=== PATIENT | female | born 1970 | race Hispanic/Latino ===

== ENCOUNTER 2019-06-29 23:38 | Emergency (ER) | payer OTHER | END 2019-06-30 00:22 | disposition home or self-care (01) | LOC: ERS 23:38 | DX: E11.65 Type 2 diabetes mellitus with hyperglycemia (principal); F41.9 Anxiety disorder, unspecified; F31.9 Bipolar disorder, unspecified; Z79.84 Long term (current) use of oral hypoglycemic drugs | CPT/HCPCS: 36416; 99284 ==

== ENCOUNTER 2023-04-15 20:58 | Inpatient (IN) | payer OTHER ==
[2023-04-15 21:53] LABS: #Basophils 0.1 thou/uL (0.0-0.2); #Monocytes 1.4 thou/uL (0.11-0.59); %Basophils 0.3 % (0.0-1.0); %Lymphocytes 3.3 % (21.0-51.0); %Monocytes 6.3 % (0.0-10.0); Hemoglobin 13.3 g/dL (12.0-16.0); Mean Corpuscular HGB CONC 34.1 g/dL (32.0-36.0); Mean Corpuscular Hemoglobin 31.2 pg (27.0-31.0); Mean Corpuscular Volume 91.5 fl (78.0-98.0); Mean Platelet Volume 12.6 fL (7.4-10.4); Platelet Count 182 10x3/uL (130-400); RBC Distribution Width 12.5 % (11.5-14.5); Red Blood Cell (RBC) Count 4.26 mill/uL (4.20-5.40); White Blood Cell (WBC) Count 22.4 10x3/uL (4.8-10.8)
[2023-04-15 22:14] LABS: Acetaminophen Less than 10 mcg/mL (10.0-30.0); Alcohol Less than 10.0 mg/dL (Less than 10); Lipase 86 U/L (8-78); Salicylate Less than 8.0 mg/dL (15.0-30.0)
[2023-04-15 22:17] LABS: Troponin I Less than 0.010 ng/mL (< 0.028)
[2023-04-15 22:19] LABS: ALT (SGPT) 10 U/L (8-55); AST (SGOT) 7 U/L (5-34); Albumin 3.2 g/dL (3.5-5.0); Alkaline Phosphatase 141 U/L (40-110); BUN (Urea Nitrogen) 62 mg/dL (9.8-20.1); Bilirubin, Total 0.5 mg/dL (0.2-1.2); CK (CPK) 28 U/L (29-168); Calc. Creatinine Clearance 0 mL/min (70-130); Calcium 8.4 mg/dL (7.8-10.44); Chloride 92 mmol/L (98-107); Estimated GFR 33; Potassium 3.5 mmol/L (3.5-5.1); Protein, Total 6.2 g/dL (6.0-8.3); Sodium 133 mmol/L (136-145)
[2023-04-15 22:25] LABS: Carbon Dioxide Less than 8 mmol/L (22-29); Critical Call Chemistry NUR.LCG @2224; Glucose 590 mg/dL (70-105)
[2023-04-15 22:33] LABS: Bilirubin Negative (Negative); Blood, Urine Trace (Negative); CAUTI Indications for Culture Pelvic or flank pain; Clarity Clear (Clear); Glucose, Urine (Dipstick) Greater than 1000 mg/dL (Negative); Ketone, Urine Greater than 150 mg/dL (Negative); Leukocyte 75 Leu/uL (Negative); Nitrite Negative (Negative); Protein, Urine (Dipstick) 20 mg/dL (Neg-Trace); RBC/HPF 0-3 HPF (0-3); Specific Gravity, Urine 1.021 (1.002-1.036); Squamous Epithelial 0-3 HPF (0-3); Urobilinogen Normal mg/dL (Less than 2); WBC/HPF 21-50 HPF (0-3); Yeast-Budding Rare HPF (None Seen)
[2023-04-15 22:35] LABS: Amphetamine Not Detected (NotDetected); Barbiturates Screen Not Detected (NotDetected); Benzodiazepine Screen Not Detected (NotDetected); Cocaine Metabolite Screen Not Detected (NotDetected); Methadone Not Detected (NotDetected); Methamphetamine Not Detected (NotDetected); Opiate Screen Not Detected (NotDetected); Oxycodone Screen Not Detected (NotDetected); Phencyclidine (PCP) Not Detected (NotDetected); THC/Cannabinoid Screen Not Detected (NotDetected); Tricyclic Screen Not Detected (NotDetected)
[2023-04-15 22:39] LABS: Bacteria/HPF Rare-Few HPF (None Seen)
[2023-04-15 22:40] LABS: Urine Culture Reflex Yes Yes
[2023-04-15] MEDS ORDERED: INSULIN REGULAR IN 0.9 % NACL 100 UNITS/100 ML BAG ONE (22:42)
[2023-04-15 23:05] LABS: Base Excess -22.6 mEq/L (-2.0 to +3.0); Calcium, Ionized (venous) 1.11 mmol/L (1.16-1.32); Chloride (VBG) 98 mmol/L (98-106); Hematocrit-VBG 43 % (36.0-47.0); Hemoglobin (Hb) 14.6 g/dL (11.7-16.0); Potassium (VBG) 3.56 mmol/L (3.70-5.30); Sodium 134 mmol/L (133-146)
[2023-04-15 23:08] LABS: Actual Bicarbonate (HCO3v) 5.7 mEq/L (22-28); pH (venous) 7.071 (7.32-7.43)
[2023-04-15] MEDS ORDERED: Ondansetron PF 4 MG/2 ML Vial ONE (23:10)
[2023-04-15] MEDS ORDERED: Potassium Chloride 20 MEQ TAB ONE (23:32)
[2023-04-15] MEDS ORDERED: Acetaminophen 650 MG Suppository PR PRN (23:41)
[2023-04-15] MEDS ORDERED: Ondansetron ODT 4 MG TAB PO PRN (23:41)
[2023-04-15] MEDS ORDERED: Calcium Carbonate 500 MG ChewTAB PO PRN (23:41)
[2023-04-15] MEDS ORDERED: Sodium Chloride 0.9% 1,000 ML IV PRN ×4 (23:44)
[2023-04-15] MEDS ORDERED: Electrolyte Replacement Protocol 1 EACH IVPB PRN (23:44)
[2023-04-15] MEDS ORDERED: NS 0.9% w/ 20 MEQ KCL 1,000 ML IV PRN ×2 (23:44)
[2023-04-15] MEDS ORDERED: Dextrose 5 %-0.45 % NaCl 1,000 ML IV PRN (23:44)
[2023-04-15] MEDS ORDERED: Dextrose 50% Abboject 50 ML SYRINGE SLOW IVP PRN (23:44)
[2023-04-16] MEDS ORDERED: cefTRIAXone\\ROCEPHIN 1 GM in Sodium Chloride 0.9% 100 ML IVPB SCH (01:00)
[2023-04-16 02:18] LABS: BUN (Urea Nitrogen) 52 mg/dL (9.8-20.1); Calc. Creatinine Clearance 33 mL/min (70-130); Calcium 8.1 mg/dL (7.8-10.44); Chloride 106 mmol/L (98-107); Estimated GFR 45; Glucose 344 mg/dL (70-105); Potassium 3.1 mmol/L (3.5-5.1); Sodium 138 mmol/L (136-145)
[2023-04-16 02:25] LABS: Carbon Dioxide Less than 8 mmol/L (22-29); Critical Call Chemistry NUR.CAS1@0225
[2023-04-16] MEDS: D5 1/2 NS w/20 mEq KCL 1,000 ML IV PRN ×5 (04:12→20:23)
[2023-04-16 05:47] LABS: Hematocrit 36.4 % (36.0-47.0); Hemoglobin 12.4 g/dL (12.0-16.0); Mean Corpuscular HGB CONC 34.1 g/dL (32.0-36.0); Mean Corpuscular Hemoglobin 30.5 pg (27.0-31.0); Mean Corpuscular Volume 89.4 fl (78.0-98.0); Mean Platelet Volume 11.8 fL (7.4-10.4); Platelet Count 168 10x3/uL (130-400); RBC Distribution Width 12.5 % (11.5-14.5); Red Blood Cell (RBC) Count 4.07 mill/uL (4.20-5.40); White Blood Cell (WBC) Count 15.1 10x3/uL (4.8-10.8)
[2023-04-16 05:49] LABS: Delete Auto Diff?? YES; Manual Diff?? YES
[2023-04-16 05:54] LABS: Hemoglobin A1c 11.7 % (4.0-6.0)
[2023-04-16 06:10] LABS: Anion Gap 17 mmol/L (10-20); BUN (Urea Nitrogen) 44 mg/dL (9.8-20.1); Calc. Creatinine Clearance 38 mL/min (70-130); Calcium 7.8 mg/dL (7.8-10.44); Carbon Dioxide 13 mmol/L (22-29); Chloride 112 mmol/L (98-107); Estimated GFR 52; Glucose 222 mg/dL (70-105); Magnesium 1.8 mg/dL (1.6-2.6); Potassium 3.3 mmol/L (3.5-5.1); Sodium 139 mmol/L (136-145)
[2023-04-16 06:21] LABS: Critical Call Chemistry REHAB.HL @0621; Phosphorus Less than 1.0 mg/dL (2.3-4.7)
[2023-04-16] MEDS: Potassium Chloride 20 MEQ in Premix 1 BAG IVPB SCH ×2 (06:24→08:23)
[2023-04-16] MEDS ORDERED: Magnesium 2 GM/50 ML(in water) 2 GM in Premix 1 BAG IVPB SCH (08:00)
[2023-04-16] MEDS ORDERED: Potassium Chloride 20 MEQ TAB PO SCH (08:00)
[2023-04-16 08:06] LABS: Band 32 % (5-11); Burr Cells MODERATE= 6-15 cells HPF (0-1); CellaVision Operator ID LAB.GE; Lymphocytes 4 % (21-51); Monocytes 5 % (0-10); Neutrophil 58 % (42-75); Platelet Adequacy Comment Platelets Normal; Polychromasia SLIGHT = 2-3 cells HPF (0-2); Total Cell Count 105; Vacuoles SLIGHT
[2023-04-16] MEDS: Heparin 5,000 UNITS/ML VIAL SC SCH ×2 (08:23→20:14)
[2023-04-16] MEDS: Senokot S 8.6-50 MG TAB PO SCH ×2 (08:23→20:13)
[2023-04-16] MEDS ORDERED: Famotidine/PF 20 mg/2ml Vial SLOW IVP SCH (09:00)
[2023-04-16] MEDS ORDERED: FLU VACC QS2023-24(6MOS UP)/PF 60 MCG/0.5 ML SYRINGE IM ONE (09:00)
[2023-04-16 10:20] LABS: Anion Gap 14 mmol/L (10-20); BUN (Urea Nitrogen) 37 mg/dL (9.8-20.1); Calc. Creatinine Clearance 42 mL/min (70-130); Calcium 7.9 mg/dL (7.8-10.44); Carbon Dioxide 14 mmol/L (22-29); Chloride 114 mmol/L (98-107); Estimated GFR 57; Glucose 251 mg/dL (70-105); Potassium 3.9 mmol/L (3.5-5.1); Sodium 138 mmol/L (136-145)
[2023-04-16] MEDS ORDERED: Potassium Phosphate 30 MMOL in Sodium Chloride 0.9% 250 ML 250 ML IVPB SCH (10:45)
[2023-04-16] MEDS: HUMULIN R 100 UNITS in Sodium Chloride 0.9% 100 ML IVPB SCH ×2 (11:51→22:58)
[2023-04-16 13:20] LABS: Potassium 4.1 mmol/L (3.5-5.1)
[2023-04-16 14:00] LABS: Chloride 115 mmol/L (98-107); Potassium 4.3 mmol/L (3.5-5.1); Sodium 140 mmol/L (136-145)
[2023-04-16 14:01] LABS: Calcium 8.1 mg/dL (7.8-10.44); Glucose 269 mg/dL (70-105)
[2023-04-16 14:03] LABS: Anion Gap 12 mmol/L (10-20); Carbon Dioxide 17 mmol/L (22-29)
[2023-04-16 14:05] LABS: BUN (Urea Nitrogen) 33 mg/dL (9.8-20.1); Calc. Creatinine Clearance 46 mL/min (70-130); Estimated GFR 64
[2023-04-16] MEDS ORDERED: Meropenem 1 GM in Sodium Chloride 0.9% 100 ML IVPB SCH ×3 (15:15→23:00)
[2023-04-16] MEDS ORDERED: PHOS-NAK 1 PKT PACK PO SCH ×2 (17:30→21:00)
[2023-04-16 19:57] LABS: Critical Call Chemistry REHAB.HL @1957; Phosphorus 1.2 mg/dL (2.3-4.7)
[2023-04-16] MEDS ORDERED: Potassium Phosphate 22 MMOL in Sodium Chloride 0.9% 250 ML 250 ML IVPB SCH ×2 (22:15→23:00)
[2023-04-17] MEDS ORDERED: cefTRIAXone\\ROCEPHIN 2 GM in Sodium Chloride 0.9% 100 ML IVPB SCH (02:00)
[2023-04-17 04:54] LABS: Hematocrit 34.4 % (36.0-47.0); Hemoglobin 11.9 g/dL (12.0-16.0); Mean Corpuscular HGB CONC 34.6 g/dL (32.0-36.0); Mean Corpuscular Hemoglobin 30.8 pg (27.0-31.0); Mean Corpuscular Volume 89.1 fl (78.0-98.0); Mean Platelet Volume 11.6 fL (7.4-10.4); Platelet Count 118 10x3/uL (130-400); RBC Distribution Width 13.1 % (11.5-14.5); Red Blood Cell (RBC) Count 3.86 mill/uL (4.20-5.40); White Blood Cell (WBC) Count 13.7 10x3/uL (4.8-10.8)
[2023-04-17 05:16] LABS: Delete Auto Diff?? YES; Manual Diff?? YES
[2023-04-17 05:22] LABS: ALT (SGPT) 7 U/L (8-55); AST (SGOT) 10 U/L (5-34); Albumin 2.4 g/dL (3.5-5.0); Alkaline Phosphatase 134 U/L (40-110); Anion Gap 14 mmol/L (10-20); BUN (Urea Nitrogen) 17 mg/dL (9.8-20.1); Bilirubin, Total 0.4 mg/dL (0.2-1.2); Calc. Creatinine Clearance 61 mL/min (70-130); Calcium 7.5 mg/dL (7.8-10.44); Carbon Dioxide 14 mmol/L (22-29); Chloride 117 mmol/L (98-107); Estimated GFR 90; Globulin 3.1 g/dL (2.4-3.5); Glucose 160 mg/dL (70-105); Magnesium 1.8 mg/dL (1.6-2.6); Potassium 4.8 mmol/L (3.5-5.1); Protein, Total 5.5 g/dL (6.0-8.3); Sodium 140 mmol/L (136-145)
[2023-04-17 05:30] LABS: Phosphorus 1.4 mg/dL (2.3-4.7)
[2023-04-17] MEDS ORDERED: Potassium Phosphate 22 MMOL in Sodium Chloride 0.9% 250 ML 250 ML IVPB SCH (07:00)
[2023-04-17 07:24] LABS: Band 42 % (5-11); Burr Cells MARKED = >16 cells HPF (0-1); CellaVision Operator ID LAB.GE; Large Platelets 4.9 % (0-5); Neutrophil 58 % (42-75); Platelet Adequacy Comment Platelets Decreased; Polychromasia SLIGHT = 2-3 cells HPF (0-2); Total Cell Count 102; Toxic Granulation SLIGHT; Vacuoles SLIGHT
[2023-04-17] MEDS ORDERED: Magnesium 2 GM/50 ML(in water) 2 GM in Premix 1 BAG IVPB SCH (08:00)
[2023-04-17] MEDS: Famotidine/PF 20 mg/2ml Vial SLOW IVP SCH ×2 (08:42→20:52)
[2023-04-17] MEDS: Meropenem 1 GM in Sodium Chloride 0.9% 100 ML IVPB SCH ×3 (08:42→22:01)
[2023-04-17] MEDS: Heparin 5,000 UNITS/ML VIAL SC SCH ×2 (08:42→21:02)
[2023-04-17] MEDS: Senokot S 8.6-50 MG TAB PO SCH ×2 (08:43→20:51)
[2023-04-17] MEDS: PHOS-NAK 1 PKT PACK PO SCH ×3 (08:43→20:52)
[2023-04-17] MEDS: D5 1/2 NS w/20 mEq KCL 1,000 ML IV PRN ×3 (08:44→13:37)
[2023-04-17] MEDS ORDERED: Sodium Bicarbonate 150 MEQ in Dextrose 5% in Water 1,000 ML IV SCH (15:00)
[2023-04-17] MEDS ORDERED: Dextrose 5% in Water 1,000 ML IV PRN (15:37)
[2023-04-17] MEDS ORDERED: Glucagon 1 MG/ML KIT IM PRN (15:37)
[2023-04-17] MEDS ORDERED: Dextrose 50% Abboject 50 ML SYRINGE SLOW IVP PRN (15:37)
[2023-04-17] MEDS ORDERED: Insulin Glargine 30 UNITS/0.3 ML VIAL SC SCH (16:00)
[2023-04-17] MEDS: Sodium Chloride 0.45% 1,000 ML IV SCH (19:22)
[2023-04-17] MEDS: Acetaminophen 325 MG TAB PO PRN (20:51)
[2023-04-17] MEDS: HumaLOG 300 UNITS/3 ML VIAL SC PRN (21:00)
[2023-04-18] MEDS: Sodium Chloride 0.45% 1,000 ML IV SCH ×3 (03:26→19:14)
[2023-04-18 03:51] LABS: Hematocrit 35.3 % (36.0-47.0); Hemoglobin 12.2 g/dL (12.0-16.0); Mean Corpuscular HGB CONC 34.6 g/dL (32.0-36.0); Mean Corpuscular Hemoglobin 30.4 pg (27.0-31.0); Mean Platelet Volume 11.9 fL (7.4-10.4); Platelet Count 99 10x3/uL (130-400); RBC Distribution Width 13.3 % (11.5-14.5); Red Blood Cell (RBC) Count 4.01 mill/uL (4.20-5.40); White Blood Cell (WBC) Count 15.1 10x3/uL (4.8-10.8)
[2023-04-18 03:54] LABS: Delete Auto Diff?? YES; Manual Diff?? YES
[2023-04-18 04:22] LABS: Band 6 % (5-11); CellaVision Operator ID lab.abc; Lymphocytes 2 % (21-51); Monocytes 5 % (0-10); Myelocyte 1 % (0-0); Neutrophil 86 % (42-75); Platelet Adequacy Comment Platelets Decreased; RBC Morphology Within Normal Limits; Smudge Cells 19.8 %; Total Cell Count 101
[2023-04-18 04:24] LABS: ALT (SGPT) 7 U/L (8-55); AST (SGOT) 13 U/L (5-34); Albumin 2.2 g/dL (3.5-5.0); Alkaline Phosphatase 141 U/L (40-110); Anion Gap 12 mmol/L (10-20); BUN (Urea Nitrogen) 13 mg/dL (9.8-20.1); Bilirubin, Total 0.5 mg/dL (0.2-1.2); Calc. Creatinine Clearance 75 mL/min (70-130); Calcium 7.1 mg/dL (7.8-10.44); Carbon Dioxide 19 mmol/L (22-29); Chloride 109 mmol/L (98-107); Estimated GFR 103; Globulin 3.2 g/dL (2.4-3.5); Glucose 308 mg/dL (70-105); Magnesium 2.2 mg/dL (1.6-2.6); Phosphorus 2.2 mg/dL (2.3-4.7); Potassium 4.6 mmol/L (3.5-5.1); Protein, Total 5.4 g/dL (6.0-8.3); Sodium 135 mmol/L (136-145)
[2023-04-18] MEDS: Meropenem 1 GM in Sodium Chloride 0.9% 100 ML IVPB SCH ×3 (05:28→22:26)
[2023-04-18] MEDS: Acetaminophen 325 MG TAB PO PRN ×2 (05:28→22:26)
[2023-04-18] MEDS: HumaLOG 300 UNITS/3 ML VIAL SC PRN (05:54)
[2023-04-18] MEDS: Senokot S 8.6-50 MG TAB PO SCH ×2 (08:16→22:24)
[2023-04-18] MEDS: PHOS-NAK 1 PKT PACK PO SCH ×3 (08:16→22:24)
[2023-04-18] MEDS: Heparin 5,000 UNITS/ML VIAL SC SCH (08:17)
[2023-04-18] MEDS: Famotidine/PF 20 mg/2ml Vial SLOW IVP SCH ×2 (08:17→22:38)
[2023-04-18] MEDS ORDERED: Insulin Glargine 30 UNITS/0.3 ML VIAL SC SCH ×2 (09:00→21:00)
[2023-04-18] MEDS: Insulin Glargine 30 UNITS/0.3 ML VIAL SC SCH (22:25)
[2023-04-19] MEDS: Sodium Chloride 0.45% 1,000 ML IV SCH ×2 (03:48→14:56)
[2023-04-19 04:07] LABS: #Neutrophils 13.7 thou/uL (1.40-6.50); %Basophils 0.2 % (0.0-1.0); %Eosinophils 0.2 % (0.0-10.0); %Lymphocytes 6.7 % (21.0-51.0); %Monocytes 6.4 % (0.0-10.0); %Neutrophils 85.1 % (42.0-75.0); Hematocrit 34.8 % (36.0-47.0); Hemoglobin 12.2 g/dL (12.0-16.0); Mean Corpuscular HGB CONC 35.1 g/dL (32.0-36.0); Mean Corpuscular Hemoglobin 30.9 pg (27.0-31.0); Mean Corpuscular Volume 88.1 fl (78.0-98.0); RBC Distribution Width 13.2 % (11.5-14.5); Red Blood Cell (RBC) Count 3.95 mill/uL (4.20-5.40); White Blood Cell (WBC) Count 16.1 10x3/uL (4.8-10.8)
[2023-04-19 04:19] LABS: Phosphorus 2.5 mg/dL (2.3-4.7)
[2023-04-19 04:20] LABS: Anion Gap 10 mmol/L (10-20); BUN (Urea Nitrogen) 14 mg/dL (9.8-20.1); Calc. Creatinine Clearance 79 mL/min (70-130); Calcium 7.2 mg/dL (7.8-10.44); Carbon Dioxide 20 mmol/L (22-29); Chloride 106 mmol/L (98-107); Estimated GFR 99; Glucose 171 mg/dL (70-105); Potassium 4.2 mmol/L (3.5-5.1); Sodium 132 mmol/L (136-145)
[2023-04-19 04:59] LABS: Platelet Count 107 10x3/uL (130-400)
[2023-04-19] MEDS: Meropenem 1 GM in Sodium Chloride 0.9% 100 ML IVPB SCH ×3 (05:45→23:32)
[2023-04-19] MEDS: Acetaminophen 325 MG TAB PO PRN ×2 (05:48→23:32)
[2023-04-19] MEDS: Famotidine/PF 20 mg/2ml Vial SLOW IVP SCH ×2 (08:39→20:05)
[2023-04-19] MEDS: PHOS-NAK 1 PKT PACK PO SCH ×2 (08:40→20:04)
[2023-04-19] MEDS: Senokot S 8.6-50 MG TAB PO SCH ×2 (08:40→20:05)
[2023-04-19] MEDS ORDERED: Sodium Chloride 0.45% 1,000 ML IV SCH (08:58)
[2023-04-19] MEDS ORDERED: Insulin Glargine 30 UNITS/0.3 ML VIAL SC SCH (09:00)
[2023-04-19] MEDS: Insulin Glargine 30 UNITS/0.3 ML VIAL SC SCH (20:03)
[2023-04-20] MEDS: Sodium Chloride 0.45% 1,000 ML IV SCH ×2 (04:29→17:14)
[2023-04-20] MEDS: Acetaminophen 325 MG TAB PO PRN ×3 (04:32→21:20)
[2023-04-20 06:23] LABS: #Basophils 0.1 thou/uL (0.0-0.2); #Monocytes 1.2 thou/uL (0.11-0.59); #Neutrophils 12.9 thou/uL (1.40-6.50); %Basophils 0.5 % (0.0-1.0); %Eosinophils 0.2 % (0.0-10.0); %Lymphocytes 6.7 % (21.0-51.0); %Monocytes 7.8 % (0.0-10.0); %Neutrophils 83.8 % (42.0-75.0); Hematocrit 33.7 % (36.0-47.0); Hemoglobin 11.6 g/dL (12.0-16.0); Mean Corpuscular HGB CONC 34.4 g/dL (32.0-36.0); Mean Corpuscular Hemoglobin 30.3 pg (27.0-31.0); Mean Platelet Volume 11.2 fL (7.4-10.4); RBC Distribution Width 13.2 % (11.5-14.5); Red Blood Cell (RBC) Count 3.83 mill/uL (4.20-5.40); White Blood Cell (WBC) Count 15.3 10x3/uL (4.8-10.8)
[2023-04-20 06:38] LABS: Platelet Count 98 10x3/uL (130-400)
[2023-04-20] MEDS: Meropenem 1 GM in Sodium Chloride 0.9% 100 ML IVPB SCH ×2 (07:06→18:09)
[2023-04-20 08:35] LABS: Anion Gap 12 mmol/L (10-20); BUN (Urea Nitrogen) 21 mg/dL (9.8-20.1); Calc. Creatinine Clearance 46 mL/min (70-130); Calcium 7.2 mg/dL (7.8-10.44); Carbon Dioxide 21 mmol/L (22-29); Chloride 104 mmol/L (98-107); Estimated GFR 51; Glucose 97 mg/dL (70-105); Potassium 4.6 mmol/L (3.5-5.1); Sodium 132 mmol/L (136-145)
[2023-04-20] MEDS ORDERED: Lisinopril 2.5 MG TAB PO SCH (09:00)
[2023-04-20] MEDS: Escitalopram Oxalate 10 mg Tablet PO SCH (09:47)
[2023-04-20] MEDS: Senokot S 8.6-50 MG TAB PO SCH (09:47)
[2023-04-20] MEDS: Famotidine/PF 20 mg/2ml Vial SLOW IVP SCH (09:48)
[2023-04-20] MEDS: PHOS-NAK 1 PKT PACK PO SCH ×2 (09:48→21:21)
[2023-04-20] MEDS: Albumin 25% 25 GM (100 mL) BOT IVPB SCH ×2 (17:07→23:43)
[2023-04-21] MEDS: Acetaminophen 325 MG TAB PO PRN ×3 (03:26→15:54)
[2023-04-21] MEDS: Albumin 25% 25 GM (100 mL) BOT IVPB SCH ×3 (05:06→18:49)
[2023-04-21] MEDS: Meropenem 1 GM in Sodium Chloride 0.9% 100 ML IVPB SCH ×2 (06:10→18:48)
[2023-04-21] MEDS: PHOS-NAK 1 PKT PACK PO SCH (08:16)
[2023-04-21] MEDS: Escitalopram Oxalate 10 mg Tablet PO SCH (08:16)
[2023-04-21] MEDS ORDERED: Famotidine/PF 20 mg/2ml Vial SLOW IVP SCH (09:00)
[2023-04-21] MEDS: Sodium Chloride 0.45% 1,000 ML IV SCH ×2 (09:11→20:04)
[2023-04-21 09:25] LABS: #Monocytes 0.8 thou/uL (0.11-0.59); #Neutrophils 12.5 thou/uL (1.40-6.50); %Basophils 0.2 % (0.0-1.0); %Eosinophils 0.2 % (0.0-10.0); %Lymphocytes 6.7 % (21.0-51.0); %Monocytes 5.4 % (0.0-10.0); %Neutrophils 86.3 % (42.0-75.0); Hematocrit 35.9 % (36.0-47.0); Hemoglobin 11.7 g/dL (12.0-16.0); Mean Corpuscular HGB CONC 32.6 g/dL (32.0-36.0); Mean Corpuscular Hemoglobin 30.5 pg (27.0-31.0); Mean Corpuscular Volume 93.5 fl (78.0-98.0); Mean Platelet Volume 10.9 fL (7.4-10.4); Platelet Count 126 10x3/uL (130-400); RBC Distribution Width 13.4 % (11.5-14.5); Red Blood Cell (RBC) Count 3.84 mill/uL (4.20-5.40); White Blood Cell (WBC) Count 14.5 10x3/uL (4.8-10.8)
[2023-04-21 09:46] LABS: Anion Gap 17 mmol/L (10-20); BUN (Urea Nitrogen) 27 mg/dL (9.8-20.1); Calc. Creatinine Clearance 39 mL/min (70-130); Calcium 7.5 mg/dL (7.8-10.44); Carbon Dioxide 16 mmol/L (22-29); Chloride 104 mmol/L (98-107); Estimated GFR 42; Glucose 197 mg/dL (70-105); Potassium 4.6 mmol/L (3.5-5.1); Sodium 132 mmol/L (136-145)
[2023-04-21] MEDS: Sodium Bicarbonate 150 MEQ in Dextrose 5% in Water 1,000 ML IV SCH (15:54)
[2023-04-21] MEDS: HumaLOG 300 UNITS/3 ML VIAL SC PRN (19:32)
[2023-04-21] MEDS: Insulin Glargine 30 UNITS/0.3 ML VIAL SC SCH (21:56)
[2023-04-22] MEDS: Albumin 25% 25 GM (100 mL) BOT IVPB SCH ×3 (00:08→12:22)
[2023-04-22] MEDS: Sodium Bicarbonate 150 MEQ in Dextrose 5% in Water 1,000 ML IV SCH ×2 (01:08→06:50)
[2023-04-22 05:57] LABS: #Monocytes 0.6 thou/uL (0.11-0.59); #Neutrophils 6.9 thou/uL (1.40-6.50); %Basophils 0.1 % (0.0-1.0); %Eosinophils 0.4 % (0.0-10.0); %Lymphocytes 10.8 % (21.0-51.0); %Monocytes 6.7 % (0.0-10.0); %Neutrophils 81.3 % (42.0-75.0); Hematocrit 28.1 % (36.0-47.0); Hemoglobin 9.6 g/dL (12.0-16.0); Mean Corpuscular HGB CONC 34.2 g/dL (32.0-36.0); Mean Corpuscular Hemoglobin 30.9 pg (27.0-31.0); Mean Platelet Volume 10.6 fL (7.4-10.4); Platelet Count 150 10x3/uL (130-400); RBC Distribution Width 13.2 % (11.5-14.5); Red Blood Cell (RBC) Count 3.11 mill/uL (4.20-5.40); White Blood Cell (WBC) Count 8.4 10x3/uL (4.8-10.8)
[2023-04-22 06:07] LABS: Mean Corpuscular Volume 90.4 fl (78.0-98.0)
[2023-04-22 06:26] LABS: Anion Gap 14 mmol/L (10-20); BUN (Urea Nitrogen) 17 mg/dL (9.8-20.1); Calc. Creatinine Clearance 74 mL/min (70-130); Calcium 7.6 mg/dL (7.8-10.44); Carbon Dioxide 22 mmol/L (22-29); Chloride 105 mmol/L (98-107); Estimated GFR 90; Glucose 227 mg/dL (70-105); Magnesium 2.1 mg/dL (1.6-2.6); Sodium 137 mmol/L (136-145)
[2023-04-22 06:27] LABS: Phosphorus 2.9 mg/dL (2.3-4.7)
[2023-04-22] MEDS: Meropenem 1 GM in Sodium Chloride 0.9% 100 ML IVPB SCH ×2 (06:49→17:55)
[2023-04-22] MEDS: HumaLOG 300 UNITS/3 ML VIAL SC PRN ×2 (06:55→17:03)
[2023-04-22] MEDS: Escitalopram Oxalate 10 mg Tablet PO SCH (09:05)
[2023-04-22] MEDS: Acetaminophen 325 MG TAB PO PRN ×2 (17:02→20:20)
[2023-04-22] MEDS: Insulin Glargine 30 UNITS/0.3 ML VIAL SC SCH (20:19)
[2023-04-23] MEDS: Meropenem 1 GM in Sodium Chloride 0.9% 100 ML IVPB SCH ×3 (06:36→20:53)
[2023-04-23] MEDS: Acetaminophen 325 MG TAB PO PRN (06:38)
[2023-04-23] MEDS: Escitalopram Oxalate 10 mg Tablet PO SCH (09:11)
[2023-04-23] MEDS: Insulin Glargine 30 UNITS/0.3 ML VIAL SC SCH (20:52)
[2023-04-24 05:19] LABS: #Monocytes 0.4 thou/uL (0.11-0.59); #Neutrophils 8.7 thou/uL (1.40-6.50); %Basophils 0.1 % (0.0-1.0); %Eosinophils 0.2 % (0.0-10.0); %Lymphocytes 13.9 % (21.0-51.0); %Monocytes 3.9 % (0.0-10.0); %Neutrophils 81.5 % (42.0-75.0); Hematocrit 30.1 % (36.0-47.0); Hemoglobin 9.9 g/dL (12.0-16.0); Mean Corpuscular HGB CONC 32.9 g/dL (32.0-36.0); Mean Corpuscular Hemoglobin 30.5 pg (27.0-31.0); Mean Corpuscular Volume 92.6 fl (78.0-98.0); Mean Platelet Volume 10.3 fL (7.4-10.4); Platelet Count 218 10x3/uL (130-400); RBC Distribution Width 12.9 % (11.5-14.5); Red Blood Cell (RBC) Count 3.25 mill/uL (4.20-5.40); White Blood Cell (WBC) Count 10.6 10x3/uL (4.8-10.8)
[2023-04-24 05:42] LABS: Anion Gap 10 mmol/L (10-20); BUN (Urea Nitrogen) 8 mg/dL (9.8-20.1); Calc. Creatinine Clearance 113 mL/min (70-130); Calcium 7.5 mg/dL (7.8-10.44); Carbon Dioxide 29 mmol/L (22-29); Chloride 101 mmol/L (98-107); Estimated GFR 111; Glucose 155 mg/dL (70-105); Sodium 136 mmol/L (136-145)
[2023-04-24] MEDS: Meropenem 1 GM in Sodium Chloride 0.9% 100 ML IVPB SCH ×4 (06:01→20:42)
[2023-04-24] MEDS: Lisinopril 2.5 MG TAB PO SCH (09:06)
[2023-04-24] MEDS: Escitalopram Oxalate 10 mg Tablet PO SCH (09:06)
[2023-04-24] MEDS: HumaLOG 300 UNITS/3 ML VIAL SC PRN (15:56)
[2023-04-24] MEDS ORDERED: Sodium Chloride 0.9% 1,000 ML IV SCH ×2 (16:15→18:00)
[2023-04-24] MEDS: metFORMIN 500 MG TAB PO SCH (16:52)
[2023-04-25 04:15] LABS: #Monocytes 0.3 thou/uL (0.11-0.59); #Neutrophils 6.3 thou/uL (1.40-6.50); %Basophils 0.1 % (0.0-1.0); %Lymphocytes 19.5 % (21.0-51.0); %Monocytes 3.9 % (0.0-10.0); %Neutrophils 76.1 % (42.0-75.0); Hematocrit 31.6 % (36.0-47.0); Hemoglobin 10.5 g/dL (12.0-16.0); Mean Corpuscular HGB CONC 33.2 g/dL (32.0-36.0); Mean Corpuscular Hemoglobin 30.7 pg (27.0-31.0); Mean Corpuscular Volume 92.4 fl (78.0-98.0); Mean Platelet Volume 10.3 fL (7.4-10.4); Platelet Count 218 10x3/uL (130-400); RBC Distribution Width 13.1 % (11.5-14.5); Red Blood Cell (RBC) Count 3.42 mill/uL (4.20-5.40); White Blood Cell (WBC) Count 8.3 10x3/uL (4.8-10.8)
[2023-04-25 04:32] LABS: Anion Gap 10 mmol/L (10-20); BUN (Urea Nitrogen) 13 mg/dL (9.8-20.1); Calc. Creatinine Clearance 102 mL/min (70-130); Calcium 7.4 mg/dL (7.8-10.44); Carbon Dioxide 29 mmol/L (22-29); Chloride 101 mmol/L (98-107); Estimated GFR 108; Glucose 195 mg/dL (70-105); Sodium 136 mmol/L (136-145)
[2023-04-25] MEDS: Meropenem 1 GM in Sodium Chloride 0.9% 100 ML IVPB SCH (06:55)
[2023-04-25] MEDS: Escitalopram Oxalate 10 mg Tablet PO SCH (08:36)
[2023-04-25] MEDS: Lisinopril 2.5 MG TAB PO SCH (08:37)
[2023-04-25] MEDS: metFORMIN 500 MG TAB PO SCH ×2 (08:37→16:47)
[2023-04-25] MEDS: HumaLOG 300 UNITS/3 ML VIAL SC PRN ×2 (13:13→21:02)
[2023-04-25] MEDS ORDERED: Ertapenem 1 GM in Sodium Chloride 0.9% 100 ML IVPB SCH (15:00)
[2023-04-25] MEDS ORDERED: Sodium Chloride 0.9% 1,000 ML IV SCH (19:45)
[2023-04-25 19:56] LABS: Actual Bicarbonate (HCO3a) 23.1 mEq/L (22-28); Base Excess (BEa) -1.5 mEq/L (-2.0 to +3.0); CO2 Tension 38.3 mmHg (35.0-45.0); Calcium, Ionized (arterial) 1.07 mmol/L (1.12-1.30); Carboxyhemoglobin (COHb) 0.1 gm% (0.0-3.0); Hematocrit-ABG 32 % (36.0-47.0); Hemoglobin (Hb) 10.9 g/dL (12.0-16.0); O2 Tension (PaO2), arterial 61.4 mmHg (80.0-100.0); Potassium - ABG Lab 4.01 mmol/L (3.70-5.30); pH, Arterial 7.398 (7.35-7.45)
[2023-04-25 19:58] LABS: ALV-art Gradient 140.275 mmHg (0-20); Puncture Site RRA
[2023-04-25 20:02] LABS: #Monocytes 0.5 thou/uL (0.11-0.59); %Basophils 0.1 % (0.0-1.0); %Lymphocytes 14.8 % (21.0-51.0); %Monocytes 3.4 % (0.0-10.0); %Neutrophils 81.1 % (42.0-75.0); Hematocrit 32.6 % (36.0-47.0); Hemoglobin 10.9 g/dL (12.0-16.0); Mean Corpuscular HGB CONC 33.4 g/dL (32.0-36.0); Mean Corpuscular Volume 92.6 fl (78.0-98.0); Mean Platelet Volume 10.1 fL (7.4-10.4); Platelet Count 214 10x3/uL (130-400); Red Blood Cell (RBC) Count 3.52 mill/uL (4.20-5.40); White Blood Cell (WBC) Count 13.6 10x3/uL (4.8-10.8)
[2023-04-25 20:31] LABS: Anion Gap 13 mmol/L (10-20); BUN (Urea Nitrogen) 12 mg/dL (9.8-20.1); Calc. Creatinine Clearance 89 mL/min (70-130); Calcium 7.5 mg/dL (7.8-10.44); Carbon Dioxide 25 mmol/L (22-29); Chloride 101 mmol/L (98-107); Estimated GFR 105; Glucose 237 mg/dL (70-105); Magnesium 1.9 mg/dL (1.6-2.6); Potassium 4.2 mmol/L (3.5-5.1); Sodium 135 mmol/L (136-145)
[2023-04-25 20:33] LABS: Troponin I 0.011 ng/mL (< 0.028)
[2023-04-25] MEDS ORDERED: Vancomycin (BATCH) 1.5 GM in Premix 1 BAG IVPB SCH (21:00)
[2023-04-25] MEDS: Nystatin Powder 15 GM BOT TOP PRN (23:34)
[2023-04-26 04:29] LABS: #Monocytes 0.3 thou/uL (0.11-0.59); #Neutrophils 7.2 thou/uL (1.40-6.50); %Basophils 0.2 % (0.0-1.0); %Eosinophils 0.1 % (0.0-10.0); %Lymphocytes 14.9 % (21.0-51.0); %Monocytes 3.3 % (0.0-10.0); %Neutrophils 81.2 % (42.0-75.0); Hematocrit 33.5 % (36.0-47.0); Mean Corpuscular HGB CONC 32.8 g/dL (32.0-36.0); Mean Corpuscular Hemoglobin 29.9 pg (27.0-31.0); Platelet Count 244 10x3/uL (130-400); RBC Distribution Width 12.9 % (11.5-14.5); Red Blood Cell (RBC) Count 3.68 mill/uL (4.20-5.40); White Blood Cell (WBC) Count 8.9 10x3/uL (4.8-10.8)
[2023-04-26 04:52] LABS: Anion Gap 13 mmol/L (10-20); BUN (Urea Nitrogen) 13 mg/dL (9.8-20.1); Calc. Creatinine Clearance 111 mL/min (70-130); Calcium 7.6 mg/dL (7.8-10.44); Carbon Dioxide 26 mmol/L (22-29); Chloride 101 mmol/L (98-107); Estimated GFR 107; Glucose 216 mg/dL (70-105); Potassium 4.3 mmol/L (3.5-5.1); Sodium 136 mmol/L (136-145)
[2023-04-26] MEDS: HumaLOG 300 UNITS/3 ML VIAL SC PRN ×4 (05:57→20:07)
[2023-04-26] MEDS ORDERED: Cosyntropin 250 MCG VIAL SLOW IVP SCH (08:00)
[2023-04-26] MEDS ORDERED: Magnesium 2 GM/50 ML(in water) 2 GM in Premix 1 BAG IVPB SCH (08:00)
[2023-04-26] MEDS: Vancomycin 1 GM in Premix 1 BAG IVPB SCH ×2 (09:26→20:07)
[2023-04-26] MEDS: Escitalopram Oxalate 10 mg Tablet PO SCH (09:29)
[2023-04-26] MEDS: metFORMIN 500 MG TAB PO SCH ×2 (09:30→16:19)
[2023-04-26] MEDS: Nystatin Powder 15 GM BOT TOP PRN (09:34)
[2023-04-26] MEDS ORDERED: Iopamidol-370 76% 500 ML MDV (1 ML CHARGE) ONE (11:31)
[2023-04-26] MEDS: Furosemide 20 MG (2 mL) VIAL SLOW IVP SCH (13:50)
[2023-04-26] MEDS: Meropenem 1 GM in Sodium Chloride 0.9% 100 ML IVPB SCH ×2 (13:55→22:54)
[2023-04-26] MEDS ORDERED: Fluconazole 100 MG TAB PO SCH (15:52)
[2023-04-27 03:39] LABS: #Monocytes 0.3 thou/uL (0.11-0.59); #Neutrophils 7.6 thou/uL (1.40-6.50); %Basophils 0.3 % (0.0-1.0); %Lymphocytes 12.5 % (21.0-51.0); %Monocytes 3.3 % (0.0-10.0); %Neutrophils 83.4 % (42.0-75.0); Hemoglobin 10.9 g/dL (12.0-16.0); Mean Corpuscular Hemoglobin 30.7 pg (27.0-31.0); Mean Platelet Volume 9.6 fL (7.4-10.4); Platelet Count 227 10x3/uL (130-400); RBC Distribution Width 13.2 % (11.5-14.5); Red Blood Cell (RBC) Count 3.55 mill/uL (4.20-5.40); White Blood Cell (WBC) Count 9.1 10x3/uL (4.8-10.8)
[2023-04-27 04:02] LABS: Anion Gap 13 mmol/L (10-20); BUN (Urea Nitrogen) 11 mg/dL (9.8-20.1); Calc. Creatinine Clearance 123 mL/min (70-130); Calcium 7.8 mg/dL (7.8-10.44); Carbon Dioxide 30 mmol/L (22-29); Chloride 98 mmol/L (98-107); Estimated GFR 109; Glucose 195 mg/dL (70-105); Potassium 4.2 mmol/L (3.5-5.1); Sodium 137 mmol/L (136-145)
[2023-04-27 04:20] LABS: HBSAg Index 0.24 S/CO (0-0.99); Hep B Surf Ag Non-Reactive S/CO (NonReactive)
[2023-04-27 04:21] LABS: Hep A IgM AB Non-Reactive S/CO (NonReactive); Hep A IgM S/CO 0.42 S/CO (0-0.79); Hep C IgG Ab Non-Reactive S/CO (NonReactive); Hep C Index 0.15 S/CO (0-0.79)
[2023-04-27 04:23] LABS: HBCM Index 0.06 S/CO (0-0.79); HIV (1/2) Antibody/Antigen Non-Reactive (NonReactive); HIV 1/2 INDEX 0.11 S/CO (<1.00); Hepatitis B Core IgM Abs Non-Reactive S/CO (NonReactive)
[2023-04-27] MEDS: HumaLOG 300 UNITS/3 ML VIAL SC PRN ×2 (05:34→17:28)
[2023-04-27] MEDS: Furosemide 20 MG (2 mL) VIAL SLOW IVP SCH ×2 (05:34→14:58)
[2023-04-27] MEDS: Meropenem 1 GM in Sodium Chloride 0.9% 100 ML IVPB SCH ×3 (05:34→20:52)
[2023-04-27 08:28] LABS: Vancomycin, Trough 20.5 ug/mL
[2023-04-27] MEDS ORDERED: Vancomycin HCl 500 MG in Sodium Chloride 0.9% 100 ML IVPB SCH (09:00)
[2023-04-27] MEDS ORDERED: Vancomycin 1 GM in Premix 1 BAG IVPB SCH (09:00)
[2023-04-27] MEDS: Escitalopram Oxalate 10 mg Tablet PO SCH (09:26)
[2023-04-27] MEDS: metFORMIN 500 MG TAB PO SCH ×2 (09:26→15:12)
[2023-04-28 04:09] LABS: #Monocytes 0.4 thou/uL (0.11-0.59); #Neutrophils 5.4 thou/uL (1.40-6.50); %Basophils 0.3 % (0.0-1.0); %Eosinophils 0.4 % (0.0-10.0); %Lymphocytes 18.2 % (21.0-51.0); %Monocytes 5.2 % (0.0-10.0); %Neutrophils 75.8 % (42.0-75.0); Hematocrit 29.8 % (36.0-47.0); Hemoglobin 9.9 g/dL (12.0-16.0); Mean Corpuscular HGB CONC 33.2 g/dL (32.0-36.0); Mean Corpuscular Hemoglobin 30.9 pg (27.0-31.0); Mean Corpuscular Volume 93.1 fl (78.0-98.0); Mean Platelet Volume 9.6 fL (7.4-10.4); Platelet Count 215 10x3/uL (130-400); RBC Distribution Width 13.4 % (11.5-14.5); White Blood Cell (WBC) Count 7.2 10x3/uL (4.8-10.8)
[2023-04-28 04:40] LABS: Anion Gap 12 mmol/L (10-20); BUN (Urea Nitrogen) 9 mg/dL (9.8-20.1); Calc. Creatinine Clearance 133 mL/min (70-130); Calcium 7.9 mg/dL (7.8-10.44); Carbon Dioxide 34 mmol/L (22-29); Chloride 94 mmol/L (98-107); Estimated GFR 112; Glucose 169 mg/dL (70-105); Potassium 3.6 mmol/L (3.5-5.1); Sodium 136 mmol/L (136-145)
[2023-04-28] MEDS: Meropenem 1 GM in Sodium Chloride 0.9% 100 ML IVPB SCH ×3 (05:51→22:59)
[2023-04-28] MEDS: Furosemide 20 MG (2 mL) VIAL SLOW IVP SCH ×2 (05:51→13:44)
[2023-04-28] MEDS: HumaLOG 300 UNITS/3 ML VIAL SC PRN ×2 (06:22→23:10)
[2023-04-28] MEDS: metFORMIN 500 MG TAB PO SCH ×2 (08:00→18:35)
[2023-04-28] MEDS: Escitalopram Oxalate 10 mg Tablet PO SCH (08:00)
[2023-04-28] MEDS ORDERED: Sodium Chloride 0.9% 500 ML IV SCH (20:30)
[2023-04-28 20:58] LABS: Actual Bicarbonate (HCO3a) 35.1 mEq/L (22-28); Base Excess (BEa) 9.5 mEq/L (-2.0 to +3.0); CO2 Tension 52.8 mmHg (35.0-45.0); Calcium, Ionized (arterial) 1.09 mmol/L (1.12-1.30); Carboxyhemoglobin (COHb) 0.5 gm% (0.0-3.0); Hematocrit-ABG 31 % (36.0-47.0); Hemoglobin (Hb) 10.4 g/dL (12.0-16.0); Potassium - ABG Lab 3.77 mmol/L (3.70-5.30)
[2023-04-28] MEDS: Midodrine HCl 5 MG TAB PO SCH (23:00)
[2023-04-29] MEDS ORDERED: Polyethylene Glycol 3350 17 GM Packet PO PRN (00:56)
[2023-04-29 04:46] LABS: #Monocytes 0.5 thou/uL (0.11-0.59); #Neutrophils 6.9 thou/uL (1.40-6.50); %Basophils 0.5 % (0.0-1.0); %Eosinophils 0.1 % (0.0-10.0); %Lymphocytes 14.3 % (21.0-51.0); %Monocytes 5.3 % (0.0-10.0); %Neutrophils 79.6 % (42.0-75.0); Hematocrit 30.9 % (36.0-47.0); Hemoglobin 10.2 g/dL (12.0-16.0); Mean Corpuscular Hemoglobin 30.4 pg (27.0-31.0); Mean Corpuscular Volume 92.2 fl (78.0-98.0); Mean Platelet Volume 9.9 fL (7.4-10.4); Platelet Count 210 10x3/uL (130-400); RBC Distribution Width 13.4 % (11.5-14.5); Red Blood Cell (RBC) Count 3.35 mill/uL (4.20-5.40); White Blood Cell (WBC) Count 8.6 10x3/uL (4.8-10.8)
[2023-04-29] MEDS: Furosemide 20 MG (2 mL) VIAL SLOW IVP SCH ×2 (05:10→15:07)
[2023-04-29] MEDS: Meropenem 1 GM in Sodium Chloride 0.9% 100 ML IVPB SCH ×3 (05:10→20:30)
[2023-04-29 05:11] LABS: Anion Gap 13 mmol/L (10-20); BUN (Urea Nitrogen) 13 mg/dL (9.8-20.1); Calc. Creatinine Clearance 122 mL/min (70-130); Calcium 7.8 mg/dL (7.8-10.44); Carbon Dioxide 34 mmol/L (22-29); Chloride 94 mmol/L (98-107); Estimated GFR 110; Glucose 197 mg/dL (70-105); Potassium 3.5 mmol/L (3.5-5.1); Sodium 137 mmol/L (136-145)
[2023-04-29] MEDS: HumaLOG 300 UNITS/3 ML VIAL SC PRN ×3 (05:53→22:00)
[2023-04-29] MEDS ORDERED: Potassium Chloride 20 MEQ TAB PO SCH (08:00)
[2023-04-29] MEDS: Midodrine HCl 5 MG TAB PO SCH (09:10)
[2023-04-29] MEDS: Escitalopram Oxalate 20 mg Tablet PO SCH (09:10)
[2023-04-29] MEDS: metFORMIN 500 MG TAB PO SCH (09:11)
[2023-04-29] MEDS ORDERED: Calcium Chloride 1 GM/10 ML Abboject SYRINGE ONE (13:27)
[2023-04-29] MEDS ORDERED: Sodium Bicarb 50 MEQ/50 ML Abboject 8.4% SYRINGE ONE (13:27)
[2023-04-29] MEDS ORDERED: Rocuronium Bromide 10 MG/ML (10ML VIAL) ONE (13:27)
[2023-04-29] MEDS ORDERED: EPINEPHrine 1 MG/10 ML Abboject SYRINGE ONE (13:27)
[2023-04-29] MEDS ORDERED: Etomidate 40 MG (20 mL) VIAL ONE (13:27)
[2023-04-29] MEDS ORDERED: NOREPINEPHRINE 8 MG/250 ML-D5W 250 ML ONE ×2 (13:41→16:20)
[2023-04-29 13:54] LABS: Actual Bicarbonate (HCO3a) 21.5 mEq/L (22-28); Base Excess (BEa) -6.3 mEq/L (-2.0 to +3.0); CO2 Tension 55.9 mmHg (35.0-45.0); Calcium, Ionized (arterial) 1.16 mmol/L (1.12-1.30); Hematocrit-ABG 22 % (36.0-47.0); Hemoglobin (Hb) 7.6 g/dL (12.0-16.0); O2 Tension (PaO2), arterial 68.1 mmHg (80.0-100.0); Potassium - ABG Lab 3.06 mmol/L (3.70-5.30)
[2023-04-29] MEDS ORDERED: Hydrocortisone Sod Succ/PF 100 mg/2 ml Vial ONE (13:56)
[2023-04-29] MEDS ORDERED: EPINEPHrine 4 MG in Dextrose 5% in Water 250 ML IVP SCH (14:00)
[2023-04-29] MEDS ORDERED: Hydrocortisone Sod Succ/PF 100 mg/2 ml Vial IVP SCH (14:00)
[2023-04-29] MEDS ORDERED: Enoxaparin 60 MG (0.6 mL) SYRINGE SC SCH (14:00)
[2023-04-29 14:02] LABS: pH, Arterial 7.202 (7.35-7.45)
[2023-04-29 14:03] LABS: ALV-art Gradient 575.025 mmHg (0-20); Puncture Site RBA
[2023-04-29] MEDS: Ipratropium/Albuterol 3 ML NEB NEB SCH ×3 (14:18→22:55)
[2023-04-29] MEDS ORDERED: Furosemide 40 MG (4 mL) VIAL ONE (14:53)
[2023-04-29] MEDS ORDERED: Furosemide 40 MG (4 mL) VIAL SLOW IVP SCH ×2 (15:00→21:00)
[2023-04-29] MEDS: NOREPINEPHRINE 8 MG/250 ML-D5W 250 ML IVPB SCH ×2 (16:21→20:36)
[2023-04-29 16:48] LABS: Hematocrit 34.8 % (36.0-47.0); Hemoglobin 11.1 g/dL (12.0-16.0); Mean Corpuscular HGB CONC 31.9 g/dL (32.0-36.0); Mean Corpuscular Hemoglobin 31.2 pg (27.0-31.0); Platelet Count 239 10x3/uL (130-400); RBC Distribution Width 14.2 % (11.5-14.5); Red Blood Cell (RBC) Count 3.56 mill/uL (4.20-5.40)
[2023-04-29 16:50] LABS: Delete Auto Diff?? YES; Manual Diff?? YES; Mean Corpuscular Volume 97.8 fl (78.0-98.0)
[2023-04-29] MEDS ORDERED: Ventilator Sedation Protocol 1 EACH FS SCH (17:00)
[2023-04-29 17:09] LABS: Lactic Acid 8.7 mmol/L (0.5-2.2)
[2023-04-29 17:12] LABS: Band 27 % (5-11); CellaVision Operator ID LAB.MJL; Lymphocytes 8 % (21-51); Metamyelocyte 1 % (0-0); Myelocyte 1 % (0-0); Neutrophil 63 % (42-75); Platelet Adequacy Comment Platelets Normal; Polychromasia SLIGHT = 2-3 cells HPF (0-2); Total Cell Count 101
[2023-04-29 17:17] LABS: ALT (SGPT) 106 U/L (8-55); AST (SGOT) 290 U/L (5-34); Albumin 1.9 g/dL (3.5-5.0); Alkaline Phosphatase 265 U/L (40-110); Anion Gap 20 mmol/L (10-20); BUN (Urea Nitrogen) 13 mg/dL (9.8-20.1); Bilirubin, Total 1.9 mg/dL (0.2-1.2); Calc. Creatinine Clearance 89 mL/min (70-130); Calcium 7.7 mg/dL (7.8-10.44); Carbon Dioxide 26 mmol/L (22-29); Chloride 98 mmol/L (98-107); Estimated GFR 103; Globulin 2.9 g/dL (2.4-3.5); Glucose 299 mg/dL (70-105); Magnesium 1.9 mg/dL (1.6-2.6); Phosphorus 4.2 mg/dL (2.3-4.7); Potassium 3.5 mmol/L (3.5-5.1); Protein, Total 4.8 g/dL (6.0-8.3); Sodium 140 mmol/L (136-145)
[2023-04-29] MEDS ORDERED: Lorazepam 2 MG/ML VIAL SLOW IVP PRN (17:30)
[2023-04-29] MEDS ORDERED: Fentanyl BOLUS 250 ML IVPB PRN (17:30)
[2023-04-29] MEDS ORDERED: Propofol 1,000 MG/100 ML VIAL IV PRN (17:30)
[2023-04-29] MEDS ORDERED: Propofol BOLUS 1,000 MG/100 ML VIAL IV PRN (17:30)
[2023-04-29] MEDS ORDERED: DISCONTINUE PREVIOUS NARCOTIC PAIN MEDICATIONS AND BENZODIAZEPINES FS SCH (17:30)
[2023-04-29] MEDS ORDERED: Morphine 2 MG/ML VIAL SLOW IVP PRN (17:30)
[2023-04-29 18:14] LABS: Actual Bicarbonate (HCO3a) 22.2 mEq/L (22-28); Base Excess (BEa) -4.2 mEq/L (-2.0 to +3.0); CO2 Tension 46.2 mmHg (35.0-45.0); Calcium, Ionized (arterial) 1.11 mmol/L (1.12-1.30); Carboxyhemoglobin (COHb) 0.5 gm% (0.0-3.0); Hematocrit-ABG 37 % (36.0-47.0); Hemoglobin (Hb) 12.5 g/dL (12.0-16.0); Potassium - ABG Lab 3.98 mmol/L (3.70-5.30)
[2023-04-29 18:15] LABS: Puncture Site Arterial Line
[2023-04-29 19:42] LABS: Lactic Acid 12.8 mmol/L (0.5-2.2)
[2023-04-29] MEDS ORDERED: Albumin 25% 25 GM (100 mL) BOT IVPB SCH (20:00)
[2023-04-29] MEDS ORDERED: Calcium Chloride 1 GM/10 ML Abboject SYRINGE IVP SCH (20:00)
[2023-04-29] MEDS: Hydrocortisone Sod Succ/PF 100 mg/2 ml Vial IVP SCH (20:31)
[2023-04-29] MEDS: Pantoprazole 40 MG VIAL IVP SCH (20:35)
[2023-04-29 20:53] LABS: Anion Gap 28 mmol/L (10-20); BUN (Urea Nitrogen) 14 mg/dL (9.8-20.1); Calc. Creatinine Clearance 82 mL/min (70-130); Calcium 8.5 mg/dL (7.8-10.44); Carbon Dioxide 17 mmol/L (22-29); Chloride 98 mmol/L (98-107); Estimated GFR 96; Glucose 202 mg/dL (70-105); Potassium 4.2 mmol/L (3.5-5.1); Sodium 139 mmol/L (136-145)
[2023-04-29] MEDS ORDERED: Hydrocortisone Sod Succ/PF 250 mg/2 ml Vial SLOW IVP SCH (21:00)
[2023-04-29] MEDS: Vasopressin 20 UNITS, Admixture Fee 1 EACH in Sodium Chloride 0.9% 50 ML IV SCH (21:02)
[2023-04-29 21:43] LABS: Actual Bicarbonate (HCO3a) 16.3 mEq/L (22-28); Base Excess (BEa) -11.2 mEq/L (-2.0 to +3.0); CO2 Tension 42.7 mmHg (35.0-45.0); Calcium, Ionized (arterial) 1.27 mmol/L (1.12-1.30); Carboxyhemoglobin (COHb) 0.3 gm% (0.0-3.0); Hematocrit-ABG 34 % (36.0-47.0); Hemoglobin (Hb) 11.7 g/dL (12.0-16.0); Potassium - ABG Lab 4.46 mmol/L (3.70-5.30)
[2023-04-29 21:45] LABS: O2 Tension (PaO2), arterial 51.6 mmHg (80.0-100.0); Puncture Site ALINE
[2023-04-29 21:46] LABS: ALV-art Gradient 608.025 mmHg (0-20)
[2023-04-29] MEDS ORDERED: Sodium Bicarb 50 MEQ/50 ML Abboject 8.4% SYRINGE IVP SCH (22:00)
[2023-04-30] MEDS: Enoxaparin 60 MG (0.6 mL) SYRINGE SC SCH ×2 (01:25→14:08)
[2023-04-30] MEDS: NOREPINEPHRINE 8 MG/250 ML-D5W 250 ML IVPB SCH ×4 (01:25→18:17)
[2023-04-30] MEDS: Vasopressin 20 UNITS, Admixture Fee 1 EACH in Sodium Chloride 0.9% 50 ML IV SCH ×3 (01:25→18:01)
[2023-04-30] MEDS: Hydrocortisone Sod Succ/PF 100 mg/2 ml Vial IVP SCH ×4 (01:26→21:34)
[2023-04-30 02:21] LABS: Actual Bicarbonate (HCO3a) 23.4 mEq/L (22-28); Base Excess (BEa) -0.7 mEq/L (-2.0 to +3.0); CO2 Tension 36.5 mmHg (35.0-45.0); Calcium, Ionized (arterial) 1.13 mmol/L (1.12-1.30); Carboxyhemoglobin (COHb) 0.3 gm% (0.0-3.0); Hematocrit-ABG 34 % (36.0-47.0); Hemoglobin (Hb) 11.4 g/dL (12.0-16.0); Potassium - ABG Lab 4.43 mmol/L (3.70-5.30); pH, Arterial 7.424 (7.35-7.45)
[2023-04-30 02:24] LABS: O2 Tension (PaO2), arterial 36.1 mmHg (80.0-100.0)
[2023-04-30 02:25] LABS: ALV-art Gradient 631.275 mmHg (0-20); Puncture Site Arterial Line
[2023-04-30] MEDS ORDERED: Sodium Chloride 0.9% 500 ML IVPB SCH (03:15)
[2023-04-30] MEDS: Ipratropium/Albuterol 3 ML NEB NEB SCH ×6 (03:53→22:44)
[2023-04-30] MEDS: Acetaminophen 325 MG TAB PO PRN ×2 (03:59→21:36)
[2023-04-30 04:23] LABS: Hematocrit 30.1 % (36.0-47.0); Mean Corpuscular HGB CONC 33.2 g/dL (32.0-36.0); Mean Corpuscular Hemoglobin 31.1 pg (27.0-31.0); Mean Platelet Volume 10.7 fL (7.4-10.4); Platelet Count 193 10x3/uL (130-400); RBC Distribution Width 14.6 % (11.5-14.5); Red Blood Cell (RBC) Count 3.22 mill/uL (4.20-5.40); White Blood Cell (WBC) Count 26.4 10x3/uL (4.8-10.8)
[2023-04-30 04:30] LABS: Delete Auto Diff?? YES; Manual Diff?? YES; Mean Corpuscular Volume 93.5 fl (78.0-98.0)
[2023-04-30 04:53] LABS: Critical Call Chem-Lactate ICU.TKW@0452; Lactic Acid 9.2 mmol/L (0.5-2.2)
[2023-04-30 04:54] LABS: ALT (SGPT) 303 U/L (8-55); AST (SGOT) 786 U/L (5-34); Albumin 2.3 g/dL (3.5-5.0); Alkaline Phosphatase 181 U/L (40-110); Anion Gap 23 mmol/L (10-20); Anisocytosis SLIGHT = 6-15 cells HPF (0-5); BUN (Urea Nitrogen) 20 mg/dL (9.8-20.1); Band 6 % (5-11); Bilirubin, Total 1.5 mg/dL (0.2-1.2); Calc. Creatinine Clearance 66 mL/min (70-130); Calcium 8.2 mg/dL (7.8-10.44); Carbon Dioxide 24 mmol/L (22-29); CellaVision Operator ID lab.sh2; Chloride 96 mmol/L (98-107); Estimated GFR 75; Globulin 2.1 g/dL (2.4-3.5); Glucose 356 mg/dL (70-105); Macrocytosis SLIGHT = 6-15 cells HPF (0-5); Monocytes 2 % (0-10); Neutrophil 92 % (42-75); Platelet Adequacy Comment Platelets Normal; Polychromasia SLIGHT = 2-3 cells HPF (0-2); Potassium 4.2 mmol/L (3.5-5.1); Protein, Total 4.4 g/dL (6.0-8.3); Smudge Cells 14.9 %; Sodium 139 mmol/L (136-145); Total Cell Count 101
[2023-04-30] MEDS: Meropenem 1 GM in Sodium Chloride 0.9% 100 ML IVPB SCH ×2 (05:04→14:07)
[2023-04-30] MEDS: HumaLOG 300 UNITS/3 ML VIAL SC PRN ×4 (05:05→21:45)
[2023-04-30] MEDS ORDERED: Magnesium 2 GM/50 ML(in water) 2 GM in Premix 1 BAG IVPB SCH (08:00)
[2023-04-30 08:02] LABS: Actual Bicarbonate (HCO3a) 28.7 mEq/L (22-28); Base Excess (BEa) 4.7 mEq/L (-2.0 to +3.0); CO2 Tension 40.1 mmHg (35.0-45.0); Carboxyhemoglobin (COHb) 0.2 gm% (0.0-3.0); Hematocrit-ABG 33 % (36.0-47.0); Hemoglobin (Hb) 11.3 g/dL (12.0-16.0); Potassium - ABG Lab 4.31 mmol/L (3.70-5.30); pH, Arterial 7.472 (7.35-7.45)
[2023-04-30 08:08] LABS: ALV-art Gradient 629.275 mmHg (0-20); O2 Tension (PaO2), arterial 33.6 mmHg (80.0-100.0); Puncture Site Arterial Line
[2023-04-30] MEDS ORDERED: Lactated Ringer's 500 ML IV SCH (08:30)
[2023-04-30] MEDS ORDERED: Insulin Glargine 30 UNITS/0.3 ML VIAL SC SCH ×2 (09:00→21:00)
[2023-04-30] MEDS: Pantoprazole 40 MG VIAL IVP SCH ×2 (10:22→21:35)
[2023-04-30] MEDS: Escitalopram Oxalate 20 mg Tablet PO SCH (10:22)
[2023-04-30] MEDS ORDERED: Hydrocortisone Sod Succ/PF 100 mg/2 ml Vial IVP SCH (10:30)
[2023-04-30] MEDS: Fentanyl CADD 100 ML IV SCH (12:10)
[2023-04-30 13:05] LABS: Actual Bicarbonate (HCO3a) 28.2 mEq/L (22-28); Base Excess (BEa) 3.7 mEq/L (-2.0 to +3.0); CO2 Tension 42.5 mmHg (35.0-45.0); Calcium, Ionized (arterial) 1.11 mmol/L (1.12-1.30); Carboxyhemoglobin (COHb) 0.1 gm% (0.0-3.0); Hematocrit-ABG 33 % (36.0-47.0); Hemoglobin (Hb) 11.1 g/dL (12.0-16.0); Potassium - ABG Lab 4.88 mmol/L (3.70-5.30)
[2023-04-30 13:25] LABS: O2 Tension (PaO2), arterial 39.3 mmHg (80.0-100.0)
[2023-04-30 13:26] LABS: ALV-art Gradient 620.575 mmHg (0-20); Puncture Site Arterial Line
[2023-04-30 14:02] LABS: O2 Tension (PaO2), arterial 55.4 mmHg (80.0-100.0)
[2023-04-30] MEDS ORDERED: Albumin 25% 25 GM (100 mL) BOT IVPB SCH ×2 (14:15→21:00)
[2023-04-30] MEDS: DOBUTamine 500 mg/250 ml 250 ML IVPB SCH (14:41)
[2023-04-30 16:14] LABS: Actual Bicarbonate (HCO3a) 30.5 mEq/L (22-28); CO2 Tension 44.3 mmHg (35.0-45.0); Calcium, Ionized (arterial) 1.08 mmol/L (1.12-1.30); Carboxyhemoglobin (COHb) 0.3 gm% (0.0-3.0); Hematocrit-ABG 30 % (36.0-47.0); Hemoglobin (Hb) 10.2 g/dL (12.0-16.0); pH, Arterial 7.456 (7.35-7.45)
[2023-04-30 16:17] LABS: ALV-art Gradient 603.325 mmHg (0-20); O2 Tension (PaO2), arterial 54.3 mmHg (80.0-100.0); Puncture Site Arterial Line
[2023-04-30 16:30] LABS: SARS-CoV-2 NAA Rapid Test Not Detected (NotDetected)
[2023-04-30 17:03] LABS: Lactic Acid 3.2 mmol/L (0.5-2.2)
[2023-04-30 17:11] LABS: ALT (SGPT) 698 U/L (8-55); AST (SGOT) 1591 U/L (5-34); Albumin 3.2 g/dL (3.5-5.0); Alkaline Phosphatase 160 U/L (40-110); Anion Gap 16 mmol/L (10-20); BUN (Urea Nitrogen) 28 mg/dL (9.8-20.1); Bilirubin, Total 1.5 mg/dL (0.2-1.2); Calc. Creatinine Clearance 41 mL/min (70-130); Calcium 8.2 mg/dL (7.8-10.44); Carbon Dioxide 30 mmol/L (22-29); Chloride 96 mmol/L (98-107); Estimated GFR 42; Globulin 2.1 g/dL (2.4-3.5); Glucose 386 mg/dL (70-105); Potassium 4.4 mmol/L (3.5-5.1); Protein, Total 5.3 g/dL (6.0-8.3); Sodium 138 mmol/L (136-145)
[2023-04-30] MEDS: Ondansetron PF 4 MG/2 ML Vial IVP PRN (21:35)
[2023-05-01] MEDS: Vasopressin 20 UNITS, Admixture Fee 1 EACH in Sodium Chloride 0.9% 50 ML IV SCH ×3 (00:41→20:34)
[2023-05-01] MEDS: Meropenem 1 GM in Sodium Chloride 0.9% 100 ML IVPB SCH ×2 (02:00→14:56)
[2023-05-01] MEDS: Hydrocortisone Sod Succ/PF 100 mg/2 ml Vial IVP SCH ×4 (02:00→20:41)
[2023-05-01] MEDS: Enoxaparin 60 MG (0.6 mL) SYRINGE SC SCH ×2 (02:00→14:56)
[2023-05-01] MEDS: Ipratropium/Albuterol 3 ML NEB NEB SCH ×6 (02:23→22:11)
[2023-05-01 04:40] LABS: #Monocytes 0.3 thou/uL (0.11-0.59); #Neutrophils 6.3 thou/uL (1.40-6.50); %Lymphocytes 12.1 % (21.0-51.0); %Monocytes 4.4 % (0.0-10.0); %Neutrophils 82.5 % (42.0-75.0); Hematocrit 22.5 % (36.0-47.0); Hemoglobin 7.6 g/dL (12.0-16.0); Mean Corpuscular HGB CONC 33.8 g/dL (32.0-36.0); Mean Corpuscular Hemoglobin 31.3 pg (27.0-31.0); Mean Corpuscular Volume 92.6 fl (78.0-98.0); Platelet Count 94 10x3/uL (130-400); RBC Distribution Width 14.6 % (11.5-14.5); Red Blood Cell (RBC) Count 2.43 mill/uL (4.20-5.40); White Blood Cell (WBC) Count 7.7 10x3/uL (4.8-10.8)
[2023-05-01 05:34] LABS: Magnesium 2.2 mg/dL (1.6-2.6)
[2023-05-01 07:33] LABS: Hypochromia SLIGHT = 6-15 cells (100X) (0-5/hpf); Platelet Adequacy Comment Platelets Decreased
[2023-05-01 07:47] LABS: Actual Bicarbonate (HCO3a) 31.8 mEq/L (22-28); CO2 Tension 41.2 mmHg (35.0-45.0); Calcium, Ionized (arterial) 1.03 mmol/L (1.12-1.30); Carboxyhemoglobin (COHb) 0.3 gm% (0.0-3.0); Hematocrit-ABG 24 % (36.0-47.0); O2 Tension (PaO2), arterial 224.6 mmHg (80.0-100.0); Puncture Site Arterial Line; pH, Arterial 7.505 (7.35-7.45)
[2023-05-01 09:07] LABS: ALT (SGPT) 619 U/L (8-55); AST (SGOT) 1096 U/L (5-34); Alkaline Phosphatase 115 U/L (40-110); Anion Gap 15 mmol/L (10-20); BUN (Urea Nitrogen) 33 mg/dL (9.8-20.1); Bilirubin, Total 1.4 mg/dL (0.2-1.2); Calc. Creatinine Clearance 38 mL/min (70-130); Calcium 7.9 mg/dL (7.8-10.44); Carbon Dioxide 33 mmol/L (22-29); Chloride 93 mmol/L (98-107); Estimated GFR 39; Globulin 1.7 g/dL (2.4-3.5); Glucose 308 mg/dL (70-105); Potassium 3.7 mmol/L (3.5-5.1); Protein, Total 4.7 g/dL (6.0-8.3); Sodium 137 mmol/L (136-145)
[2023-05-01] MEDS: Pantoprazole 40 MG VIAL IVP SCH ×2 (09:59→20:43)
[2023-05-01] MEDS: Escitalopram Oxalate 20 mg Tablet PO SCH (09:59)
[2023-05-01] MEDS: Insulin Glargine 30 UNITS/0.3 ML VIAL SC SCH ×2 (09:59→20:29)
[2023-05-01] MEDS: HumaLOG 300 UNITS/3 ML VIAL SC PRN ×2 (11:08→16:58)
[2023-05-01] MEDS: Fentanyl CADD 100 ML IV SCH (22:16)
[2023-05-02] MEDS: Enoxaparin 60 MG (0.6 mL) SYRINGE SC SCH (02:30)
[2023-05-02] MEDS: Meropenem 1 GM in Sodium Chloride 0.9% 100 ML IVPB SCH ×2 (02:30→14:54)
[2023-05-02] MEDS: Ipratropium/Albuterol 3 ML NEB NEB SCH ×6 (02:44→21:45)
[2023-05-02] MEDS: NOREPINEPHRINE 8 MG/250 ML-D5W 250 ML IVPB SCH (04:08)
[2023-05-02 04:48] LABS: Hematocrit 23.3 % (36.0-47.0); Hemoglobin 7.8 g/dL (12.0-16.0); Manual Diff?? YES; Mean Corpuscular HGB CONC 33.5 g/dL (32.0-36.0); Mean Corpuscular Hemoglobin 30.6 pg (27.0-31.0); Mean Corpuscular Volume 91.4 fl (78.0-98.0); Mean Platelet Volume 11.2 fL (7.4-10.4); RBC Distribution Width 14.6 % (11.5-14.5); Red Blood Cell (RBC) Count 2.55 mill/uL (4.20-5.40); White Blood Cell (WBC) Count 8.1 10x3/uL (4.8-10.8)
[2023-05-02 04:56] LABS: INR-International Normal Ratio 1.2; PTT 33.3 sec (22.9-36.1); Prothrombin Time 16.1 sec (12.0-14.7)
[2023-05-02 04:58] LABS: Delete Auto Diff?? YES; Platelet Count 85 10x3/uL (130-400)
[2023-05-02 05:18] LABS: ALT (SGPT) 492 U/L (8-55); AST (SGOT) 563 U/L (5-34); Albumin 3.1 g/dL (3.5-5.0); Alkaline Phosphatase 129 U/L (40-110); Anion Gap 11 mmol/L (10-20); BUN (Urea Nitrogen) 40 mg/dL (9.8-20.1); Bilirubin, Total 1.6 mg/dL (0.2-1.2); Calc. Creatinine Clearance 33 mL/min (70-130); Carbon Dioxide 36 mmol/L (22-29); Chloride 96 mmol/L (98-107); Estimated GFR 33; Globulin 1.9 g/dL (2.4-3.5); Glucose 59 mg/dL (70-105); Potassium 3.2 mmol/L (3.5-5.1); Sodium 140 mmol/L (136-145)
[2023-05-02 05:44] LABS: Anisocytosis SLIGHT = 6-15 cells HPF (0-5); Band 18 % (5-11); CellaVision Operator ID LAB.JMM; Hypochromia SLIGHT = 6-15 cells HPF (0-5); Lymphocytes 6 % (21-51); Macrocytosis SLIGHT = 6-15 cells HPF (0-5); Monocytes 4 % (0-10); Neutrophil 72 % (42-75); Platelet Adequacy Comment Platelets Decreased; Polychromasia SLIGHT = 2-3 cells HPF (0-2); Total Cell Count 100
[2023-05-02 07:48] LABS: Actual Bicarbonate (HCO3a) 31.6 mEq/L (22-28); Base Excess (BEa) 9.8 mEq/L (-2.0 to +3.0); CO2 Tension 31.5 mmHg (35.0-45.0); Calcium, Ionized (arterial) 1.01 mmol/L (1.12-1.30); Carboxyhemoglobin (COHb) 0.3 gm% (0.0-3.0); Hematocrit-ABG 25 % (36.0-47.0); Hemoglobin (Hb) 8.5 g/dL (12.0-16.0); O2 Tension (PaO2), arterial 180.7 mmHg (80.0-100.0); Potassium - ABG Lab 3.16 mmol/L (3.70-5.30)
[2023-05-02 07:49] LABS: ALV-art Gradient 136.425 mmHg (0-20); Puncture Site Arterial Line; pH, Arterial 7.619 (7.35-7.45)
[2023-05-02] MEDS ORDERED: Potassium Bicarbonate/Cit Ac 20 MEQ TAB PER TUBE SCH (08:00)
[2023-05-02] MEDS: Escitalopram Oxalate 20 mg Tablet PO SCH (09:00)
[2023-05-02] MEDS: Pantoprazole 40 MG VIAL IVP SCH ×2 (09:00→21:45)
[2023-05-02] MEDS: Hydrocortisone Sod Succ/PF 100 mg/2 ml Vial IVP SCH ×2 (09:00→21:45)
[2023-05-02] MEDS: Insulin Glargine 30 UNITS/0.3 ML VIAL SC SCH (09:49)
[2023-05-02] MEDS ORDERED: Enoxaparin 60 MG (0.6 mL) SYRINGE SC SCH (14:00)
[2023-05-02] MEDS: DOBUTamine 500 mg/250 ml 250 ML IVPB SCH (17:46)
[2023-05-03] MEDS: Fentanyl CADD 100 ML IV SCH (00:11)
[2023-05-03] MEDS: Ipratropium/Albuterol 3 ML NEB NEB SCH ×6 (01:51→22:12)
[2023-05-03] MEDS: Meropenem 1 GM in Sodium Chloride 0.9% 100 ML IVPB SCH ×2 (02:06→14:36)
[2023-05-03] MEDS: NOREPINEPHRINE 8 MG/250 ML-D5W 250 ML IVPB SCH (03:58)
[2023-05-03 04:20] LABS: Hematocrit 27.5 % (36.0-47.0); Hemoglobin 9.3 g/dL (12.0-16.0); Manual Diff?? YES; Mean Corpuscular HGB CONC 33.8 g/dL (32.0-36.0); Mean Corpuscular Volume 91.7 fl (78.0-98.0); Mean Platelet Volume 12.4 fL (7.4-10.4); RBC Distribution Width 14.6 % (11.5-14.5); White Blood Cell (WBC) Count 10.8 10x3/uL (4.8-10.8)
[2023-05-03 04:41] LABS: Delete Auto Diff?? YES; Platelet Count 84 10x3/uL (130-400)
[2023-05-03 05:14] LABS: ALT (SGPT) 269 U/L (8-55); AST (SGOT) 278 U/L (5-34); Albumin 2.5 g/dL (3.5-5.0); Alkaline Phosphatase 129 U/L (40-110); Anion Gap 13 mmol/L (10-20); BUN (Urea Nitrogen) 44 mg/dL (9.8-20.1); Bilirubin, Total 1.7 mg/dL (0.2-1.2); Calc. Creatinine Clearance 30 mL/min (70-130); Calcium 7.5 mg/dL (7.8-10.44); Carbon Dioxide 34 mmol/L (22-29); Chloride 95 mmol/L (98-107); Estimated GFR 28; Globulin 2.1 g/dL (2.4-3.5); Glucose 122 mg/dL (70-105); Potassium 4.3 mmol/L (3.5-5.1); Protein, Total 4.6 g/dL (6.0-8.3); Sodium 138 mmol/L (136-145)
[2023-05-03 05:52] LABS: Band 9 % (5-11); CellaVision Operator ID lab.abc; Large Platelets 1.9 % (0-5); Lymphocytes 3 % (21-51); Monocytes 6 % (0-10); Neutrophil 83 % (42-75); Platelet Adequacy Comment Platelets Decreased; Polychromasia SLIGHT = 2-3 cells HPF (0-2); Smudge Cells 4.9 %; Total Cell Count 103
[2023-05-03 07:50] LABS: Base Excess (BEa) 8.8 mEq/L (-2.0 to +3.0); CO2 Tension 50.1 mmHg (35.0-45.0); Calcium, Ionized (arterial) 1.05 mmol/L (1.12-1.30); Hematocrit-ABG 30 % (36.0-47.0); Hemoglobin (Hb) 10.3 g/dL (12.0-16.0); O2 Tension (PaO2), arterial 86.9 mmHg (80.0-100.0); pH, Arterial 7.449 (7.35-7.45)
[2023-05-03 07:51] LABS: ALV-art Gradient 278.275 mmHg (0-20); Puncture Site Arterial Line
[2023-05-03] MEDS ORDERED: Enoxaparin 60 MG (0.6 mL) SYRINGE SC SCH (09:00)
[2023-05-03] MEDS: Hydrocortisone Sod Succ/PF 100 mg/2 ml Vial IVP SCH ×2 (09:13→21:29)
[2023-05-03] MEDS: Escitalopram Oxalate 20 mg Tablet PO SCH (09:13)
[2023-05-03] MEDS: Pantoprazole 40 MG VIAL IVP SCH ×2 (09:13→21:29)
[2023-05-03] MEDS ORDERED: Furosemide 40 MG (4 mL) VIAL SLOW IVP SCH (09:15)
[2023-05-03] MEDS ORDERED: Albumin 25% 25 GM (100 mL) BOT IVPB SCH (11:45)
[2023-05-03] MEDS: HumaLOG 300 UNITS/3 ML VIAL SC PRN (18:11)
[2023-05-04] MEDS: Meropenem 1 GM in Sodium Chloride 0.9% 100 ML IVPB SCH ×2 (01:15→14:04)
[2023-05-04] MEDS: Ipratropium/Albuterol 3 ML NEB NEB SCH ×6 (02:22→22:12)
[2023-05-04] MEDS: HumaLOG 300 UNITS/3 ML VIAL SC PRN ×4 (05:23→22:45)
[2023-05-04 07:49] LABS: ALT (SGPT) 103 U/L (8-55); AST (SGOT) 43 U/L (5-34); Albumin 2.5 g/dL (3.5-5.0); Alkaline Phosphatase 112 U/L (40-110); Anion Gap 19 mmol/L (10-20); BUN (Urea Nitrogen) 54 mg/dL (9.8-20.1); Bilirubin, Total 1.1 mg/dL (0.2-1.2); Calc. Creatinine Clearance 27 mL/min (70-130); Calcium 7.9 mg/dL (7.8-10.44); Carbon Dioxide 30 mmol/L (22-29); Chloride 94 mmol/L (98-107); Estimated GFR 24; Globulin 2.2 g/dL (2.4-3.5); Glucose 190 mg/dL (70-105); Potassium 4.7 mmol/L (3.5-5.1); Protein, Total 4.7 g/dL (6.0-8.3); Sodium 138 mmol/L (136-145)
[2023-05-04] MEDS: Hydrocortisone Sod Succ/PF 100 mg/2 ml Vial IVP SCH ×2 (08:20→20:33)
[2023-05-04] MEDS: Pantoprazole 40 MG VIAL IVP SCH ×2 (08:20→20:33)
[2023-05-04] MEDS: Escitalopram Oxalate 20 mg Tablet PO SCH (08:20)
[2023-05-04] MEDS: Enoxaparin 60 MG (0.6 mL) SYRINGE SC SCH (08:20)
[2023-05-04] MEDS ORDERED: Furosemide 40 MG (4 mL) VIAL SLOW IVP SCH (10:00)
[2023-05-04] MEDS ORDERED: Albumin 25% 25 GM (100 mL) BOT IVPB SCH (10:23)
[2023-05-04] MEDS: Albumin 25% 25 GM (100 mL) BOT IVPB SCH (18:07)
[2023-05-05] MEDS: Meropenem 1 GM in Sodium Chloride 0.9% 100 ML IVPB SCH (02:25)
[2023-05-05] MEDS: Albumin 25% 25 GM (100 mL) BOT IVPB SCH ×3 (02:25→12:26)
[2023-05-05] MEDS: Ipratropium/Albuterol 3 ML NEB NEB SCH ×6 (02:29→21:21)
[2023-05-05 04:11] LABS: ALT (SGPT) 44 U/L (8-55); AST (SGOT) 16 U/L (5-34); Albumin 3.5 g/dL (3.5-5.0); Alkaline Phosphatase 99 U/L (40-110); Anion Gap 21 mmol/L (10-20); BUN (Urea Nitrogen) 62 mg/dL (9.8-20.1); Bilirubin, Total 1.3 mg/dL (0.2-1.2); Calc. Creatinine Clearance 27 mL/min (70-130); Calcium 8.2 mg/dL (7.8-10.44); Carbon Dioxide 29 mmol/L (22-29); Chloride 93 mmol/L (98-107); Estimated GFR 24; Globulin 1.8 g/dL (2.4-3.5); Glucose 321 mg/dL (70-105); Potassium 4.5 mmol/L (3.5-5.1); Protein, Total 5.3 g/dL (6.0-8.3); Sodium 138 mmol/L (136-145)
[2023-05-05] MEDS: HumaLOG 300 UNITS/3 ML VIAL SC PRN ×4 (04:46→21:30)
[2023-05-05 07:24] LABS: Hematocrit 24.3 % (36.0-47.0); Manual Diff?? YES; Mean Corpuscular HGB CONC 32.9 g/dL (32.0-36.0); Mean Corpuscular Hemoglobin 31.6 pg (27.0-31.0); Mean Platelet Volume 12.1 fL (7.4-10.4); Platelet Count 118 10x3/uL (130-400); Red Blood Cell (RBC) Count 2.53 mill/uL (4.20-5.40); White Blood Cell (WBC) Count 5.3 10x3/uL (4.8-10.8)
[2023-05-05 07:30] LABS: Delete Auto Diff?? YES
[2023-05-05 07:51] LABS: Band 8 % (5-11); CellaVision Operator ID LAB.GE; Eosinophils 1 % (0-10); Large Platelets 2.8 % (0-5); Lymphocytes 13 % (21-51); Metamyelocyte 1 % (0-0); Monocytes 9 % (0-10); Neutrophil 66 % (42-75); Platelet Adequacy Comment Platelets Decreased; Polychromasia SLIGHT = 2-3 cells HPF (0-2); Reactive Lymphocytes 1 % (0-10); Total Cell Count 107; Vacuoles SLIGHT
[2023-05-05] MEDS: Pantoprazole 40 MG VIAL IVP SCH ×2 (08:47→21:21)
[2023-05-05] MEDS: Hydrocortisone Sod Succ/PF 100 mg/2 ml Vial IVP SCH ×2 (08:47→21:21)
[2023-05-05] MEDS: Enoxaparin 60 MG (0.6 mL) SYRINGE SC SCH (08:52)
[2023-05-05] MEDS: Escitalopram Oxalate 20 mg Tablet PO SCH (08:52)
[2023-05-05] MEDS: Insulin NPH Human Isophane 100 UNITS/ML (10 ML VIAL) SC SCH ×2 (09:44→21:22)
[2023-05-05] MEDS ORDERED: Acetaminophen 650 MG Suppository PR PRN (14:02)
[2023-05-06] MEDS: Ipratropium/Albuterol 3 ML NEB NEB SCH ×6 (01:58→23:22)
[2023-05-06 03:27] LABS: #Monocytes 0.5 thou/uL (0.11-0.59); #Neutrophils 5.7 thou/uL (1.40-6.50); %Basophils 0.1 % (0.0-1.0); %Eosinophils 0.3 % (0.0-10.0); %Lymphocytes 9.1 % (21.0-51.0); %Monocytes 7.5 % (0.0-10.0); %Neutrophils 81.4 % (42.0-75.0); Hematocrit 25.6 % (36.0-47.0); Hemoglobin 8.5 g/dL (12.0-16.0); Mean Corpuscular HGB CONC 33.2 g/dL (32.0-36.0); Mean Corpuscular Volume 93.4 fl (78.0-98.0); Mean Platelet Volume 11.9 fL (7.4-10.4); Platelet Count 151 10x3/uL (130-400); RBC Distribution Width 15.1 % (11.5-14.5); Red Blood Cell (RBC) Count 2.74 mill/uL (4.20-5.40)
[2023-05-06] MEDS ORDERED: Methyl Salicylate/Menthol 85 GM TUBE TOP PRN (03:44)
[2023-05-06 03:50] LABS: ALT (SGPT) 23 U/L (8-55); AST (SGOT) 18 U/L (5-34); Albumin 3.1 g/dL (3.5-5.0); Alkaline Phosphatase 94 U/L (40-110); Anion Gap 16 mmol/L (10-20); BUN (Urea Nitrogen) 74 mg/dL (9.8-20.1); Bilirubin, Total 1.6 mg/dL (0.2-1.2); Calc. Creatinine Clearance 34 mL/min (70-130); Calcium 8.3 mg/dL (7.8-10.44); Carbon Dioxide 35 mmol/L (22-29); Chloride 97 mmol/L (98-107); Estimated GFR 31; Globulin 1.8 g/dL (2.4-3.5); Glucose 191 mg/dL (70-105); Potassium 3.8 mmol/L (3.5-5.1); Protein, Total 4.9 g/dL (6.0-8.3); Sodium 144 mmol/L (136-145)
[2023-05-06] MEDS: HumaLOG 300 UNITS/3 ML VIAL SC PRN ×3 (04:15→15:29)
[2023-05-06] MEDS: Escitalopram Oxalate 20 mg Tablet PO SCH (09:00)
[2023-05-06] MEDS: Pantoprazole 40 MG VIAL IVP SCH ×2 (09:00→20:54)
[2023-05-06] MEDS: Hydrocortisone Sod Succ/PF 100 mg/2 ml Vial IVP SCH ×2 (09:00→20:59)
[2023-05-06] MEDS: Enoxaparin 60 MG (0.6 mL) SYRINGE SC SCH (09:00)
[2023-05-06] MEDS: Insulin NPH Human Isophane 100 UNITS/ML (10 ML VIAL) SC SCH ×2 (09:00→21:03)
[2023-05-06 14:38] LABS: Heparin-Induced Ab (HITA) 0.078 OD (0.000-0.400)
[2023-05-06] MEDS: Apixaban 5 MG TAB PO SCH (20:55)
[2023-05-07] MEDS: Ipratropium/Albuterol 3 ML NEB NEB SCH ×6 (02:30→23:23)
[2023-05-07 03:31] LABS: #Monocytes 0.8 thou/uL (0.11-0.59); #Neutrophils 9.1 thou/uL (1.40-6.50); %Basophils 0.4 % (0.0-1.0); %Eosinophils 0.4 % (0.0-10.0); %Lymphocytes 6.3 % (21.0-51.0); %Monocytes 7.1 % (0.0-10.0); %Neutrophils 84.9 % (42.0-75.0); Hematocrit 28.6 % (36.0-47.0); Hemoglobin 9.4 g/dL (12.0-16.0); Mean Corpuscular HGB CONC 32.9 g/dL (32.0-36.0); Mean Corpuscular Hemoglobin 31.6 pg (27.0-31.0); Mean Corpuscular Volume 96.3 fl (78.0-98.0); Mean Platelet Volume 11.5 fL (7.4-10.4); Platelet Count 196 10x3/uL (130-400); RBC Distribution Width 15.2 % (11.5-14.5); Red Blood Cell (RBC) Count 2.97 mill/uL (4.20-5.40); White Blood Cell (WBC) Count 10.8 10x3/uL (4.8-10.8)
[2023-05-07 04:41] LABS: Anion Gap 14 mmol/L (10-20); BUN (Urea Nitrogen) 61 mg/dL (9.8-20.1); Calc. Creatinine Clearance 43 mL/min (70-130); Carbon Dioxide 35 mmol/L (22-29); Chloride 100 mmol/L (98-107); Estimated GFR 44; Glucose 147 mg/dL (70-105); Potassium 3.2 mmol/L (3.5-5.1); Sodium 146 mmol/L (136-145)
[2023-05-07 04:42] LABS: ALT (SGPT) 19 U/L (8-55); AST (SGOT) 19 U/L (5-34); Albumin 2.8 g/dL (3.5-5.0); Alkaline Phosphatase 96 U/L (40-110); Bilirubin, Total 1.5 mg/dL (0.2-1.2); Calcium 8.3 mg/dL (7.6-10.4); Globulin 2.2 g/dL (2.4-3.5)
[2023-05-07 06:05] VITALS: BMI 25.4
[2023-05-07] MEDS ORDERED: Potassium Chloride 20 MEQ TAB PO SCH (08:00)
[2023-05-07] MEDS: Pantoprazole 40 MG VIAL IVP SCH ×2 (08:32→22:20)
[2023-05-07] MEDS: Apixaban 5 MG TAB PO SCH ×2 (08:32→22:20)
[2023-05-07] MEDS: Escitalopram Oxalate 20 mg Tablet PO SCH (08:32)
[2023-05-07] MEDS: Hydrocortisone Sod Succ/PF 100 mg/2 ml Vial IVP SCH (08:32)
[2023-05-07] MEDS: Insulin NPH Human Isophane 100 UNITS/ML (10 ML VIAL) SC SCH ×2 (08:33→22:21)
[2023-05-07 11:08] LABS: Potassium 3.3 mmol/L (3.5-5.1)
[2023-05-07] MEDS: Ondansetron PF 4 MG/2 ML Vial IVP PRN (22:20)
[2023-05-08] MEDS: Ipratropium/Albuterol 3 ML NEB NEB SCH ×6 (02:18→22:46)
[2023-05-08 06:39] LABS: ALT (SGPT) 14 U/L (8-55); AST (SGOT) 13 U/L (5-34); Albumin 2.9 g/dL (3.5-5.0); Alkaline Phosphatase 102 U/L (40-110); Anion Gap 14 mmol/L (10-20); BUN (Urea Nitrogen) 47 mg/dL (9.8-20.1); Bilirubin, Total 1.3 mg/dL (0.2-1.2); Calc. Creatinine Clearance 63 mL/min (70-130); Calcium 8.5 mg/dL (7.8-10.44); Carbon Dioxide 36 mmol/L (22-29); Chloride 102 mmol/L (98-107); Estimated GFR 69; Globulin 2.3 g/dL (2.4-3.5); Glucose 200 mg/dL (70-105); Potassium 3.1 mmol/L (3.5-5.1); Protein, Total 5.2 g/dL (6.0-8.3); Sodium 149 mmol/L (136-145)
[2023-05-08] MEDS ORDERED: Potassium Bicarbonate/Cit Ac 20 MEQ TAB PO SCH (08:00)
[2023-05-08] MEDS: Escitalopram Oxalate 20 mg Tablet PO SCH (09:33)
[2023-05-08] MEDS: Hydrocortisone Sod Succ/PF 100 mg/2 ml Vial IVP SCH (09:33)
[2023-05-08] MEDS: Apixaban 5 MG TAB PO SCH ×2 (09:33→21:34)
[2023-05-08] MEDS: Pantoprazole 40 MG VIAL IVP SCH ×2 (09:34→21:34)
[2023-05-08] MEDS: Potassium Chloride 20 MEQ in Premix 1 BAG IVPB SCH ×2 (10:33→15:30)
[2023-05-08] MEDS ORDERED: Potassium Chloride 20 MEQ in Sodium Chloride 0.9% 250 ML 250 ML IVPB SCH (13:45)
[2023-05-08] MEDS: Insulin NPH Human Isophane 100 UNITS/ML (10 ML VIAL) SC SCH ×2 (15:20→21:34)
[2023-05-08] MEDS: HumaLOG 300 UNITS/3 ML VIAL SC PRN ×2 (16:07→21:36)
[2023-05-09] MEDS: Ipratropium/Albuterol 3 ML NEB NEB SCH ×6 (02:15→22:17)
[2023-05-09] MEDS: HumaLOG 300 UNITS/3 ML VIAL SC PRN ×2 (05:47→10:59)
[2023-05-09 06:10] LABS: #Monocytes 0.4 thou/uL (0.11-0.59); %Basophils 0.1 % (0.0-1.0); %Eosinophils 0.3 % (0.0-10.0); %Lymphocytes 7.8 % (21.0-51.0); %Neutrophils 86.9 % (42.0-75.0); Hematocrit 25.8 % (36.0-47.0); Hemoglobin 8.2 g/dL (12.0-16.0); Mean Corpuscular HGB CONC 31.8 g/dL (32.0-36.0); Mean Corpuscular Hemoglobin 31.5 pg (27.0-31.0); Mean Corpuscular Volume 99.2 fl (78.0-98.0); Mean Platelet Volume 11.1 fL (7.4-10.4); Platelet Count 221 10x3/uL (130-400); RBC Distribution Width 15.9 % (11.5-14.5); White Blood Cell (WBC) Count 10.4 10x3/uL (4.8-10.8)
[2023-05-09 06:31] LABS: ALT (SGPT) 11 U/L (8-55); AST (SGOT) 11 U/L (5-34); Albumin 2.8 g/dL (3.5-5.0); Alkaline Phosphatase 110 U/L (40-110); BUN (Urea Nitrogen) 44 mg/dL (9.8-20.1); Bilirubin, Total 1.1 mg/dL (0.2-1.2); Calc. Creatinine Clearance 57 mL/min (70-130); Calcium 8.3 mg/dL (7.8-10.44); Estimated GFR 60; Globulin 2.7 g/dL (2.4-3.5); Glucose 379 mg/dL (70-105); Magnesium 1.7 mg/dL (1.6-2.6); Protein, Total 5.5 g/dL (6.0-8.3)
[2023-05-09 06:40] LABS: Chloride 105 mmol/L (98-107); Potassium 3.4 mmol/L (3.5-5.1); Sodium 151 mmol/L (136-145)
[2023-05-09 06:42] LABS: Anion Gap 17 mmol/L (10-20); Carbon Dioxide 32 mmol/L (22-29)
[2023-05-09] MEDS ORDERED: Magnesium 2 GM/50 ML(in water) 2 GM in Premix 1 BAG IVPB SCH (08:00)
[2023-05-09] MEDS ORDERED: Potassium Chloride 20 MEQ TAB PO SCH (08:00)
[2023-05-09] MEDS: Insulin NPH Human Isophane 100 UNITS/ML (10 ML VIAL) SC SCH (08:28)
[2023-05-09] MEDS: Apixaban 5 MG TAB PO SCH ×2 (08:29→21:26)
[2023-05-09] MEDS: Escitalopram Oxalate 20 mg Tablet PO SCH (08:29)
[2023-05-09] MEDS: Pantoprazole 40 MG VIAL IVP SCH (08:30)
[2023-05-09] MEDS: Hydrocortisone Sod Succ/PF 100 mg/2 ml Vial IVP SCH (08:30)
[2023-05-09] MEDS ORDERED: Potassium Bicarbonate/Cit Ac 20 MEQ TAB PER TUBE SCH (09:00)
[2023-05-09] MEDS ORDERED: Insulin Glargine 30 UNITS/0.3 ML VIAL SC SCH ×2 (11:00→21:00)
[2023-05-09] MEDS: Dextrose 5% in Water 1,000 ML IV SCH ×2 (11:00→21:28)
[2023-05-09] MEDS ORDERED: Dextrose 5% in Water 1,000 ML IV PRN (11:50)
[2023-05-09] MEDS ORDERED: Glucagon 1 MG/ML KIT IM PRN (11:50)
[2023-05-09] MEDS ORDERED: Dextrose 50% Abboject 50 ML SYRINGE SLOW IVP PRN (11:50)
[2023-05-09] MEDS: HumaLOG 300 UNITS/3 ML VIAL SC SCH (15:56)
[2023-05-09] MEDS: Famotidine 20 MG TAB PO SCH (21:26)
[2023-05-10] MEDS: Ipratropium/Albuterol 3 ML NEB NEB SCH ×6 (02:28→22:02)
[2023-05-10] MEDS: HumaLOG 300 UNITS/3 ML VIAL SC PRN (04:38)
[2023-05-10 06:44] LABS: Hematocrit 25.9 % (36.0-47.0); Hemoglobin 8.1 g/dL (12.0-16.0); Manual Diff?? YES; Mean Corpuscular HGB CONC 31.3 g/dL (32.0-36.0); Mean Corpuscular Volume 99.2 fl (78.0-98.0); Mean Platelet Volume 10.7 fL (7.4-10.4); Platelet Count 207 10x3/uL (130-400); Red Blood Cell (RBC) Count 2.61 mill/uL (4.20-5.40); White Blood Cell (WBC) Count 11.1 10x3/uL (4.8-10.8)
[2023-05-10 07:06] LABS: BUN (Urea Nitrogen) 33 mg/dL (9.8-20.1); Calc. Creatinine Clearance 79 mL/min (70-130); Estimated GFR 90; Glucose 222 mg/dL (70-105); Magnesium 1.7 mg/dL (1.6-2.6)
[2023-05-10 07:10] LABS: Delete Auto Diff?? YES
[2023-05-10 07:16] LABS: Anion Gap 13 mmol/L (10-20); Carbon Dioxide 34 mmol/L (22-29); Chloride 100 mmol/L (98-107); Potassium 3.1 mmol/L (3.5-5.1); Sodium 144 mmol/L (136-145)
[2023-05-10] MEDS: Dextrose 5% in Water 1,000 ML IV SCH (07:24)
[2023-05-10 07:39] LABS: Anisocytosis SLIGHT = 6-15 cells HPF (0-5); Band 4 % (5-11); CellaVision Operator ID LAB.NR; Eosinophils 2 % (0-10); Hypochromia SLIGHT = 6-15 cells HPF (0-5); Lymphocytes 6 % (21-51); Macrocytosis SLIGHT = 6-15 cells HPF (0-5); Monocytes 1 % (0-10); Neutrophil 87 % (42-75); Ovalocytes SLIGHT = 2-5 cells HPF (0-1); Platelet Adequacy Comment Platelets Normal; Polychromasia SLIGHT = 2-3 cells HPF (0-2); Total Cell Count 100
[2023-05-10] MEDS ORDERED: Potassium Bicarbonate/Cit Ac 20 MEQ TAB PO SCH (08:00)
[2023-05-10] MEDS ORDERED: Magnesium 2 GM/50 ML(in water) 2 GM in Premix 1 BAG IVPB SCH (08:00)
[2023-05-10] MEDS: Apixaban 5 MG TAB PO SCH ×2 (09:19→21:47)
[2023-05-10] MEDS: Escitalopram Oxalate 20 mg Tablet PO SCH (09:19)
[2023-05-10] MEDS: HumaLOG 300 UNITS/3 ML VIAL SC SCH ×2 (09:20→12:48)
[2023-05-10] MEDS: Insulin Glargine 30 UNITS/0.3 ML VIAL SC SCH (21:47)
[2023-05-10] MEDS: Famotidine 20 MG TAB PO SCH (21:47)
[2023-05-11] MEDS: HumaLOG 300 UNITS/3 ML VIAL SC PRN (00:20)
[2023-05-11] MEDS: Ipratropium/Albuterol 3 ML NEB NEB SCH ×6 (02:17→18:32)
[2023-05-11] MEDS: HumaLOG 300 UNITS/3 ML VIAL SC SCH ×2 (03:16→17:16)
[2023-05-11 07:07] LABS: Hematocrit 23.6 % (36.0-47.0); Hemoglobin 7.5 g/dL (12.0-16.0); Manual Diff?? YES; Mean Corpuscular HGB CONC 31.8 g/dL (32.0-36.0); Mean Corpuscular Volume 97.5 fl (78.0-98.0); Mean Platelet Volume 11.4 fL (7.4-10.4); Platelet Count 181 10x3/uL (130-400); RBC Distribution Width 15.4 % (11.5-14.5); Red Blood Cell (RBC) Count 2.42 mill/uL (4.20-5.40); White Blood Cell (WBC) Count 9.7 10x3/uL (4.8-10.8)
[2023-05-11 07:10] LABS: Delete Auto Diff?? YES
[2023-05-11 07:27] LABS: Anion Gap 11 mmol/L (10-20); BUN (Urea Nitrogen) 30 mg/dL (9.8-20.1); Calc. Creatinine Clearance 86 mL/min (70-130); Calcium 7.5 mg/dL (7.8-10.44); Carbon Dioxide 37 mmol/L (22-29); Chloride 98 mmol/L (98-107); Estimated GFR 99; Glucose 126 mg/dL (70-105); Magnesium 1.9 mg/dL (1.6-2.6); Potassium 3.5 mmol/L (3.5-5.1); Sodium 142 mmol/L (136-145)
[2023-05-11] MEDS: Apixaban 5 MG TAB PO SCH ×2 (08:16→20:58)
[2023-05-11] MEDS: Escitalopram Oxalate 20 mg Tablet PO SCH (08:16)
[2023-05-11 08:26] LABS: Band 17 % (5-11); CellaVision Operator ID LAB.GE; Large Platelets 4.1 % (0-5); Lymphocytes 9 % (21-51); Monocytes 5 % (0-10); Neutrophil 67 % (42-75); Platelet Adequacy Comment Platelets Normal; Polychromasia SLIGHT = 2-3 cells HPF (0-2); Total Cell Count 98
[2023-05-11] MEDS ORDERED: Potassium Bicarbonate/Cit Ac 20 MEQ TAB PO SCH (08:45)
[2023-05-11] MEDS ORDERED: Magnesium 2 GM/50 ML(in water) 2 GM in Premix 1 BAG IVPB SCH (08:45)
[2023-05-11] MEDS: Insulin Glargine 30 UNITS/0.3 ML VIAL SC SCH (20:58)
[2023-05-11] MEDS: Famotidine 20 MG TAB PO SCH (20:58)
[2023-05-12] MEDS: Ipratropium/Albuterol 3 ML NEB NEB SCH ×5 (01:30→23:15)
[2023-05-12] MEDS: HumaLOG 300 UNITS/3 ML VIAL SC PRN (05:05)
[2023-05-12] MEDS: Apixaban 5 MG TAB PO SCH ×2 (08:08→21:37)
[2023-05-12] MEDS: Escitalopram Oxalate 20 mg Tablet PO SCH (08:08)
[2023-05-12] MEDS: Dextrose 5 % And 0.9 % NaCl 1,000 ML IV SCH (12:16)
[2023-05-12] MEDS: Famotidine 20 MG TAB PO SCH (21:36)
[2023-05-13] MEDS: HumaLOG 300 UNITS/3 ML VIAL SC PRN (00:38)
[2023-05-13] MEDS: Dextrose 5 % And 0.9 % NaCl 1,000 ML IV SCH (06:29)
[2023-05-13 06:47] LABS: Delete Auto Diff?? YES; Hematocrit 22.3 % (36.0-47.0); Hemoglobin 7.3 g/dL (12.0-16.0); Manual Diff?? YES; Mean Corpuscular HGB CONC 32.7 g/dL (32.0-36.0); Mean Corpuscular Hemoglobin 31.3 pg (27.0-31.0); Mean Corpuscular Volume 95.7 fl (78.0-98.0); Mean Platelet Volume 11.3 fL (7.4-10.4); Platelet Count 149 10x3/uL (130-400); RBC Distribution Width 14.9 % (11.5-14.5); Red Blood Cell (RBC) Count 2.33 mill/uL (4.20-5.40); White Blood Cell (WBC) Count 5.2 10x3/uL (4.8-10.8)
[2023-05-13 07:11] LABS: ALT (SGPT) Less than 7 U/L (8-55); AST (SGOT) 10 U/L (5-34); Albumin 2.4 g/dL (3.5-5.0); Alkaline Phosphatase 90 U/L (40-110); Anion Gap 9 mmol/L (10-20); BUN (Urea Nitrogen) 22 mg/dL (9.8-20.1); Bilirubin, Total 1.2 mg/dL (0.2-1.2); Calc. Creatinine Clearance 94 mL/min (70-130); Calcium 7.5 mg/dL (7.8-10.44); Carbon Dioxide 33 mmol/L (22-29); Chloride 99 mmol/L (98-107); Estimated GFR 104; Globulin 3.1 g/dL (2.4-3.5); Glucose 233 mg/dL (70-105); Magnesium 1.8 mg/dL (1.6-2.6); Phosphorus 3.3 mg/dL (2.3-4.7); Potassium 3.2 mmol/L (3.5-5.1); Protein, Total 5.5 g/dL (6.0-8.3); Sodium 138 mmol/L (136-145)
[2023-05-13] MEDS: Acetaminophen 325 MG TAB PO PRN (07:11)
[2023-05-13] MEDS: Ipratropium/Albuterol 3 ML NEB NEB SCH (07:18)
[2023-05-13 07:35] LABS: Band 33 % (5-11); CellaVision Operator ID LAB.GE; Lymphocytes 5 % (21-51); Monocytes 6 % (0-10); Neutrophil 55 % (42-75); Platelet Adequacy Comment Platelets Normal; Polychromasia SLIGHT = 2-3 cells HPF (0-2); Total Cell Count 100; Toxic Granulation SLIGHT
[2023-05-13] MEDS ORDERED: Potassium Chloride 20 MEQ TAB PO SCH ×2 (08:00→10:45)
[2023-05-13] MEDS ORDERED: Magnesium 2 GM/50 ML(in water) 2 GM in Premix 1 BAG IVPB SCH (08:00)
[2023-05-13] MEDS: Apixaban 5 MG TAB PO SCH ×2 (08:29→21:46)
[2023-05-13] MEDS: Escitalopram Oxalate 20 mg Tablet PO SCH (08:29)
[2023-05-13] MEDS: HumaLOG 300 UNITS/3 ML VIAL SC SCH ×2 (09:53→13:51)
[2023-05-13] MEDS ORDERED: Ipratropium/Albuterol 3 ML NEB NEB PRN (10:13)
[2023-05-13] MEDS ORDERED: Potassium Chloride 40 MEQ in Premix 1 BAG IVPB SCH (12:30)
[2023-05-13] MEDS: Potassium Chloride 20 MEQ in Premix 1 BAG IVPB SCH ×2 (13:51→16:20)
[2023-05-13] MEDS: Mirtazapine 15 MG TAB PO SCH (21:46)
[2023-05-13] MEDS: Famotidine 20 MG TAB PO SCH (21:47)
[2023-05-14] MEDS: HumaLOG 300 UNITS/3 ML VIAL SC SCH (05:04)
[2023-05-14 06:35] LABS: Anion Gap 14 mmol/L (10-20); BUN (Urea Nitrogen) 19 mg/dL (9.8-20.1); Calc. Creatinine Clearance 92 mL/min (70-130); Calcium 7.5 mg/dL (7.8-10.44); Carbon Dioxide 24 mmol/L (22-29); Chloride 104 mmol/L (98-107); Estimated GFR 104; Glucose 198 mg/dL (70-105); Potassium 3.7 mmol/L (3.5-5.1); Sodium 138 mmol/L (136-145)
[2023-05-14] MEDS: Escitalopram Oxalate 20 mg Tablet PO SCH (09:35)
[2023-05-14] MEDS: Apixaban 5 MG TAB PO SCH ×2 (09:35→20:15)
[2023-05-14] MEDS ORDERED: Furosemide 40 MG (4 mL) VIAL SLOW IVP SCH (11:00)
[2023-05-14] MEDS: Albumin 25% 25 GM (100 mL) BOT IVPB SCH ×2 (11:39→18:02)
[2023-05-14] MEDS ORDERED: Sertraline 25 MG TAB PO SCH (19:15)
[2023-05-14] MEDS: Famotidine 20 MG TAB PO SCH (20:15)
[2023-05-14] MEDS: Mirtazapine 15 MG TAB PO SCH (20:15)
[2023-05-15] MEDS: Albumin 25% 25 GM (100 mL) BOT IVPB SCH ×2 (00:12→06:34)
[2023-05-15] MEDS: Escitalopram Oxalate 20 mg Tablet PO SCH (09:14)
[2023-05-15] MEDS: Sertraline 25 MG TAB PO SCH (09:14)
[2023-05-15] MEDS: Pantoprazole 40 MG VIAL IVP SCH ×2 (09:15→21:18)
[2023-05-15 09:24] LABS: Hematocrit 19.9 % (36.0-47.0); Hemoglobin 6.4 g/dL (12.0-16.0); Manual Diff?? YES; Mean Corpuscular HGB CONC 32.2 g/dL (32.0-36.0); Mean Corpuscular Hemoglobin 31.4 pg (27.0-31.0); Mean Corpuscular Volume 97.5 fl (78.0-98.0); Platelet Count 136 10x3/uL (130-400); RBC Distribution Width 15.1 % (11.5-14.5); Red Blood Cell (RBC) Count 2.04 mill/uL (4.20-5.40); White Blood Cell (WBC) Count 4.3 10x3/uL (4.8-10.8)
[2023-05-15 09:25] LABS: Delete Auto Diff?? YES
[2023-05-15 09:49] LABS: Anion Gap 19 mmol/L (10-20); BUN (Urea Nitrogen) 17 mg/dL (9.8-20.1); Calc. Creatinine Clearance 83 mL/min (70-130); Calcium 8.2 mg/dL (7.8-10.44); Carbon Dioxide 26 mmol/L (22-29); Chloride 101 mmol/L (98-107); Estimated GFR 95; Glucose 222 mg/dL (70-105); Potassium 3.6 mmol/L (3.5-5.1); Sodium 142 mmol/L (136-145)
[2023-05-15 10:09] LABS: Anisocytosis SLIGHT = 6-15 cells HPF (0-5); Band 31 % (5-11); CellaVision Operator ID LAB.MJL; Large Platelets 4.3 % (0-5); Lymphocytes 22 % (21-51); Monocytes 4 % (0-10); Neutrophil 44 % (42-75); Ovalocytes SLIGHT = 2-5 cells HPF (0-1); Platelet Adequacy Comment Platelets Normal; Polychromasia SLIGHT = 2-3 cells HPF (0-2); Total Cell Count 115
[2023-05-15] MEDS: Mirtazapine 15 MG TAB PO SCH (21:17)
[2023-05-16] MEDS: HumaLOG 300 UNITS/3 ML VIAL SC PRN ×3 (00:19→17:08)
[2023-05-16 06:14] LABS: Manual Diff?? YES; Mean Corpuscular HGB CONC 33.6 g/dL (32.0-36.0); Mean Corpuscular Hemoglobin 31.9 pg (27.0-31.0); Mean Corpuscular Volume 95.2 fl (78.0-98.0); Mean Platelet Volume 11.2 fL (7.4-10.4); Platelet Count 167 10x3/uL (130-400); RBC Distribution Width 14.8 % (11.5-14.5); Red Blood Cell (RBC) Count 3.13 mill/uL (4.20-5.40); White Blood Cell (WBC) Count 5.2 10x3/uL (4.8-10.8)
[2023-05-16 06:29] LABS: Delete Auto Diff?? YES; Hematocrit 29.8 % (36.0-47.0)
[2023-05-16 06:47] LABS: Anion Gap 17 mmol/L (10-20); BUN (Urea Nitrogen) 15 mg/dL (9.8-20.1); Calc. Creatinine Clearance 81 mL/min (70-130); Calcium 8.2 mg/dL (7.8-10.44); Carbon Dioxide 28 mmol/L (22-29); Chloride 103 mmol/L (98-107); Estimated GFR 93; Glucose 209 mg/dL (70-105); Potassium 2.7 mmol/L (3.5-5.1); Sodium 145 mmol/L (136-145)
[2023-05-16 06:54] LABS: Band 19 % (5-11); CellaVision Operator ID lab.abc; Eosinophils 1 % (0-10); Large Platelets 2.6 % (0-5); Lymphocytes 18 % (21-51); Monocytes 9 % (0-10); Neutrophil 52 % (42-75); Platelet Adequacy Comment Platelets Normal; RBC Morphology Within Normal Limits; Reactive Lymphocytes 1 % (0-10); Total Cell Count 117
[2023-05-16] MEDS ORDERED: Potassium Chloride 20 MEQ TAB PO SCH (08:00)
[2023-05-16] MEDS: Potassium Chloride 20 MEQ in Premix 1 BAG IVPB SCH ×2 (09:03→11:15)
[2023-05-16] MEDS: Pantoprazole 40 MG VIAL IVP SCH ×2 (09:03→21:32)
[2023-05-16] MEDS: Escitalopram Oxalate 20 mg Tablet PO SCH (09:04)
[2023-05-16] MEDS: Sertraline 25 MG TAB PO SCH (09:04)
[2023-05-16] MEDS: Polymyxin B Sulf/Trimethoprim 10 ML OPHTH DROPS EA EYE SCH ×2 (15:09→21:32)
[2023-05-16] MEDS: Insulin Glargine 30 UNITS/0.3 ML VIAL SC SCH (21:31)
[2023-05-16] MEDS: Mirtazapine 15 MG TAB PO SCH (22:05)
[2023-05-17 06:06] LABS: Hematocrit 29.9 % (36.0-47.0); Hemoglobin 10.2 g/dL (12.0-16.0); Manual Diff?? YES; Mean Corpuscular HGB CONC 34.1 g/dL (32.0-36.0); Mean Corpuscular Hemoglobin 32.8 pg (27.0-31.0); Mean Corpuscular Volume 96.1 fl (78.0-98.0); Mean Platelet Volume 10.5 fL (7.4-10.4); Platelet Count 163 10x3/uL (130-400); RBC Distribution Width 15.5 % (11.5-14.5); Red Blood Cell (RBC) Count 3.11 mill/uL (4.20-5.40); White Blood Cell (WBC) Count 4.7 10x3/uL (4.8-10.8)
[2023-05-17 06:31] LABS: Anion Gap 9 mmol/L (10-20); BUN (Urea Nitrogen) 13 mg/dL (9.8-20.1); Calc. Creatinine Clearance 81 mL/min (70-130); Calcium 7.9 mg/dL (7.8-10.44); Carbon Dioxide 32 mmol/L (22-29); Chloride 106 mmol/L (98-107); Estimated GFR 93; Glucose 148 mg/dL (70-105); Magnesium 1.5 mg/dL (1.6-2.6); Potassium 3.1 mmol/L (3.5-5.1); Sodium 144 mmol/L (136-145)
[2023-05-17 06:47] LABS: Delete Auto Diff?? YES
[2023-05-17] MEDS ORDERED: Magnesium 2 GM/50 ML(in water) 2 GM in Premix 1 BAG IVPB SCH ×3 (08:00→15:45)
[2023-05-17] MEDS ORDERED: Potassium Chloride 20 MEQ TAB PO SCH (08:00)
[2023-05-17 08:12] LABS: Anisocytosis SLIGHT = 6-15 cells HPF (0-5); Band 26 % (5-11); CellaVision Operator ID LAB.CMB; Eosinophils 1 % (0-10); Lymphocytes 13 % (21-51); Macrocytosis SLIGHT = 6-15 cells HPF (0-5); Monocytes 6 % (0-10); Neutrophil 51 % (42-75); Platelet Adequacy Comment Platelets Normal; Polychromasia SLIGHT = 2-3 cells HPF (0-2); Reactive Lymphocytes 3 % (0-10); Total Cell Count 102
[2023-05-17] MEDS: Pantoprazole 40 MG VIAL IVP SCH ×2 (10:58→21:39)
[2023-05-17] MEDS: Sertraline 25 MG TAB PO SCH (10:59)
[2023-05-17] MEDS: Escitalopram Oxalate 20 mg Tablet PO SCH (10:59)
[2023-05-17] MEDS: Polymyxin B Sulf/Trimethoprim 10 ML OPHTH DROPS EA EYE SCH ×3 (11:00→21:40)
[2023-05-17] MEDS: Apixaban 5 MG TAB PO SCH ×2 (11:03→21:38)
[2023-05-17] MEDS: HumaLOG 300 UNITS/3 ML VIAL SC PRN (17:22)
[2023-05-17] MEDS: Mirtazapine 15 MG TAB PO SCH (21:38)
[2023-05-17] MEDS: Acetaminophen 325 MG TAB PO PRN (21:38)
[2023-05-17] MEDS: Ondansetron PF 4 MG/2 ML Vial IVP PRN (21:38)
[2023-05-17] MEDS: Insulin Glargine 30 UNITS/0.3 ML VIAL SC SCH (21:39)
[2023-05-18 04:46] LABS: Hematocrit 28.6 % (36.0-47.0); Hemoglobin 9.5 g/dL (12.0-16.0); Manual Diff?? YES; Mean Corpuscular HGB CONC 33.2 g/dL (32.0-36.0); Mean Corpuscular Volume 96.3 fl (78.0-98.0); Mean Platelet Volume 10.7 fL (7.4-10.4); Platelet Count 166 10x3/uL (130-400); RBC Distribution Width 15.5 % (11.5-14.5); Red Blood Cell (RBC) Count 2.97 mill/uL (4.20-5.40); White Blood Cell (WBC) Count 5.5 10x3/uL (4.8-10.8)
[2023-05-18 04:51] LABS: Delete Auto Diff?? YES
[2023-05-18 05:10] LABS: Anion Gap 12 mmol/L (10-20); BUN (Urea Nitrogen) 11 mg/dL (9.8-20.1); Calc. Creatinine Clearance 97 mL/min (70-130); Calcium 7.9 mg/dL (7.8-10.44); Carbon Dioxide 29 mmol/L (22-29); Chloride 105 mmol/L (98-107); Estimated GFR 105; Glucose 122 mg/dL (70-105); Potassium 3.1 mmol/L (3.5-5.1); Sodium 143 mmol/L (136-145)
[2023-05-18 05:11] LABS: Band 8 % (5-11); CellaVision Operator ID lab.abc; Eosinophils 1 % (0-10); Lymphocytes 26 % (21-51); Monocytes 7 % (0-10); Neutrophil 57 % (42-75); Platelet Adequacy Comment Platelets Normal; RBC Morphology Within Normal Limits; Reactive Lymphocytes 1 % (0-10); Smudge Cells 19.6 %; Total Cell Count 102
[2023-05-18] MEDS ORDERED: Magnesium 2 GM/50 ML(in water) 2 GM in Premix 1 BAG IVPB SCH (08:00)
[2023-05-18] MEDS ORDERED: Potassium Chloride 20 MEQ TAB PO SCH (08:00)
[2023-05-18] MEDS: Pantoprazole 40 MG VIAL IVP SCH ×2 (09:19→22:54)
[2023-05-18] MEDS: Apixaban 5 MG TAB PO SCH ×2 (09:20→22:54)
[2023-05-18] MEDS: Sertraline 25 MG TAB PO SCH (09:20)
[2023-05-18] MEDS: Polymyxin B Sulf/Trimethoprim 10 ML OPHTH DROPS EA EYE SCH ×3 (09:20→22:56)
[2023-05-18] MEDS: Escitalopram Oxalate 20 mg Tablet PO SCH (09:20)
[2023-05-18] MEDS: cefTRIAXone\\ROCEPHIN 2 GM in Sodium Chloride 0.9% 100 ML IVPB SCH (11:49)
[2023-05-18 12:10] LABS: Potassium 3.7 mmol/L (3.5-5.1)
[2023-05-18] MEDS ORDERED: Admixture Fee 1 EACH in Dextrose 5% in Water 10 ML FS SCH ×2 (19:45→23:59)
[2023-05-18] MEDS ORDERED: WATER IVPB SCH (19:45)
[2023-05-18] MEDS ORDERED: DEXTROSE 5% IVPB SCH (19:45)
[2023-05-18] MEDS ORDERED: AMBISOME IVPB SCH (19:45)
[2023-05-18] MEDS: Acetaminophen 325 MG TAB PO PRN (22:54)
[2023-05-18] MEDS: Mirtazapine 15 MG TAB PO SCH (22:54)
[2023-05-18] MEDS: Insulin Glargine 30 UNITS/0.3 ML VIAL SC SCH (22:55)
[2023-05-18] MEDS: Ondansetron PF 4 MG/2 ML Vial IVP PRN (23:01)
[2023-05-19] MEDS: NS 0.9% w/ 20 MEQ KCL 1,000 ML/1,000 ML BAG IV SCH (01:45)
[2023-05-19 05:13] LABS: Hemoglobin 9.7 g/dL (12.0-16.0); Manual Diff?? YES; Mean Corpuscular HGB CONC 33.4 g/dL (32.0-36.0); Mean Corpuscular Volume 95.7 fl (78.0-98.0); Mean Platelet Volume 9.9 fL (7.4-10.4); Platelet Count 138 10x3/uL (130-400); RBC Distribution Width 15.2 % (11.5-14.5); Red Blood Cell (RBC) Count 3.03 mill/uL (4.20-5.40); White Blood Cell (WBC) Count 5.6 10x3/uL (4.8-10.8)
[2023-05-19 05:45] LABS: Anion Gap 13 mmol/L (10-20); BUN (Urea Nitrogen) 12 mg/dL (9.8-20.1); Calc. Creatinine Clearance 105 mL/min (70-130); Calcium 7.7 mg/dL (7.8-10.44); Carbon Dioxide 30 mmol/L (22-29); Chloride 100 mmol/L (98-107); Estimated GFR 107; Glucose 175 mg/dL (70-105); Potassium 3.1 mmol/L (3.5-5.1); Sodium 140 mmol/L (136-145)
[2023-05-19 06:05] LABS: Delete Auto Diff?? YES
[2023-05-19 06:59] LABS: Anisocytosis SLIGHT = 6-15 cells HPF (0-5); Band 26 % (5-11); CellaVision Operator ID LAB.JMM; Eosinophils 2 % (0-10); Lymphocytes 4 % (21-51); Macrocytosis SLIGHT = 6-15 cells HPF (0-5); Monocytes 3 % (0-10); Neutrophil 65 % (42-75); Platelet Adequacy Comment Platelets Normal; Polychromasia SLIGHT = 2-3 cells HPF (0-2); Smudge Cells 15.8 %; Total Cell Count 101
[2023-05-19] MEDS: Potassium Chloride 20 MEQ TAB PO SCH ×2 (09:35→11:25)
[2023-05-19] MEDS: Apixaban 5 MG TAB PO SCH ×2 (09:36→20:32)
[2023-05-19] MEDS: Pantoprazole 40 MG VIAL IVP SCH ×2 (09:36→20:31)
[2023-05-19] MEDS: Sertraline 25 MG TAB PO SCH (09:36)
[2023-05-19] MEDS: cefTRIAXone\\ROCEPHIN 2 GM in Sodium Chloride 0.9% 100 ML IVPB SCH (09:36)
[2023-05-19] MEDS: Escitalopram Oxalate 20 mg Tablet PO SCH (09:36)
[2023-05-19] MEDS: Polymyxin B Sulf/Trimethoprim 10 ML OPHTH DROPS EA EYE SCH ×3 (09:37→20:31)
[2023-05-19] MEDS ORDERED: DAPTOmycin 400 MG in Sodium Chloride 0.9% 50 ML IVPB SCH (17:15)
[2023-05-19] MEDS: Insulin Glargine 30 UNITS/0.3 ML VIAL SC SCH (20:31)
[2023-05-19] MEDS: Mirtazapine 15 MG TAB PO SCH (20:32)
[2023-05-19] MEDS: DAPTOmycin 400 MG in Sodium Chloride 0.9% 50 ML IVPB SCH (21:51)
[2023-05-19] MEDS: Cefepime 2 GM in Sodium Chloride 0.9% 100 ML IVPB SCH (22:42)
[2023-05-20] MEDS: NS 0.9% w/ 20 MEQ KCL 1,000 ML/1,000 ML BAG IV SCH (01:58)
[2023-05-20] MEDS: Acetaminophen 325 MG TAB PO PRN ×2 (02:02→20:59)
[2023-05-20] MEDS: Cefepime 2 GM in Sodium Chloride 0.9% 100 ML IVPB SCH ×3 (05:28→23:55)
[2023-05-20 05:55] LABS: Hemoglobin 8.6 g/dL (12.0-16.0); Manual Diff?? YES; Mean Corpuscular HGB CONC 33.1 g/dL (32.0-36.0); Mean Corpuscular Hemoglobin 32.1 pg (27.0-31.0); Mean Platelet Volume 10.8 fL (7.4-10.4); Platelet Count 146 10x3/uL (130-400); RBC Distribution Width 15.4 % (11.5-14.5); Red Blood Cell (RBC) Count 2.68 mill/uL (4.20-5.40); White Blood Cell (WBC) Count 5.4 10x3/uL (4.8-10.8)
[2023-05-20 06:04] LABS: Delete Auto Diff?? YES
[2023-05-20 06:40] LABS: Band 34 % (5-11); CellaVision Operator ID LAB.GE; Lymphocytes 7 % (21-51); Metamyelocyte 1 % (0-0); Monocytes 5 % (0-10); Neutrophil 53 % (42-75); Platelet Adequacy Comment Platelets Normal; Polychromasia SLIGHT = 2-3 cells HPF (0-2); Reactive Lymphocytes 1 % (0-10); Total Cell Count 101
[2023-05-20 06:54] LABS: Potassium 2.6 mmol/L (3.5-5.1)
[2023-05-20 06:56] LABS: Anion Gap 9 mmol/L (10-20); BUN (Urea Nitrogen) 11 mg/dL (9.8-20.1); Calc. Creatinine Clearance 135 mL/min (70-130); Calcium 7.2 mg/dL (7.6-10.4); Carbon Dioxide 32 mmol/L (22-29); Chloride 105 mmol/L (98-107); Estimated GFR 114; Glucose 78 mg/dL (70-105); Sodium 143 mmol/L (136-145)
[2023-05-20] MEDS ORDERED: Ciprofloxacin 0.2% Otic (0.25ML CONTAINER) R EAR SCH (09:00)
[2023-05-20] MEDS: Ciprofloxacin 0.3% Ophth Soln 2.5 ml Bottle R EYE SCH ×4 (10:19→20:19)
[2023-05-20] MEDS ORDERED: Iopamidol 370 76% 100 ML VIAL ONE (10:39)
[2023-05-20] MEDS: Apixaban 5 MG TAB PO SCH (12:14)
[2023-05-20] MEDS: Potassium Chloride 20 MEQ TAB PO SCH ×2 (12:14→15:06)
[2023-05-20] MEDS: Escitalopram Oxalate 20 mg Tablet PO SCH (12:14)
[2023-05-20] MEDS: Pantoprazole 40 MG VIAL IVP SCH ×2 (12:14→20:20)
[2023-05-20] MEDS: Sertraline 25 MG TAB PO SCH (12:14)
[2023-05-20 13:19] LABS: Potassium 2.9 mmol/L (3.5-5.1)
[2023-05-20] MEDS ORDERED: Potassium Chloride 20 MEQ in Premix 1 BAG IVPB SCH (14:15)
[2023-05-20] MEDS: Potassium Chloride 20 MEQ in Premix 1 BAG IVPB SCH ×2 (15:53→20:20)
[2023-05-20] MEDS: Dronabinol 2.5 MG CAP PO SCH (16:21)
[2023-05-20] MEDS: Mirtazapine 15 MG TAB PO SCH (20:19)
[2023-05-20] MEDS: Insulin Glargine 30 UNITS/0.3 ML VIAL SC SCH (20:19)
[2023-05-20 20:51] LABS: Potassium 3.5 mmol/L (3.5-5.1)
[2023-05-20] MEDS: DAPTOmycin 400 MG in Sodium Chloride 0.9% 50 ML IVPB SCH (22:41)
[2023-05-20] MEDS ORDERED: Potassium Chloride 20 MEQ TAB PO SCH (23:15)
[2023-05-21 04:56] LABS: Hematocrit 25.1 % (36.0-47.0); Hemoglobin 8.2 g/dL (12.0-16.0); Manual Diff?? YES; Mean Corpuscular HGB CONC 32.7 g/dL (32.0-36.0); Mean Platelet Volume 10.5 fL (7.4-10.4); Platelet Count 145 10x3/uL (130-400); RBC Distribution Width 15.8 % (11.5-14.5); Red Blood Cell (RBC) Count 2.56 mill/uL (4.20-5.40); White Blood Cell (WBC) Count 6.2 10x3/uL (4.8-10.8)
[2023-05-21 05:15] LABS: Anion Gap 8 mmol/L (10-20); BUN (Urea Nitrogen) 12 mg/dL (9.8-20.1); Calc. Creatinine Clearance 117 mL/min (70-130); Calcium 7.3 mg/dL (7.8-10.44); Carbon Dioxide 30 mmol/L (22-29); Chloride 106 mmol/L (98-107); Estimated GFR 110; Glucose 128 mg/dL (70-105); Potassium 3.3 mmol/L (3.5-5.1); Sodium 141 mmol/L (136-145)
[2023-05-21 05:48] LABS: Delete Auto Diff?? YES
[2023-05-21] MEDS: Cefepime 2 GM in Sodium Chloride 0.9% 100 ML IVPB SCH ×3 (06:31→21:43)
[2023-05-21] MEDS: NS 0.9% w/ 20 MEQ KCL 1,000 ML/1,000 ML BAG IV SCH ×2 (07:51→08:26)
[2023-05-21] MEDS ORDERED: Potassium Chloride 20 MEQ TAB PO SCH (08:00)
[2023-05-21] MEDS: Dronabinol 2.5 MG CAP PO SCH ×2 (08:26→16:18)
[2023-05-21] MEDS: Ciprofloxacin 0.3% Ophth Soln 2.5 ml Bottle R EYE SCH ×4 (08:26→21:43)
[2023-05-21] MEDS: Pantoprazole 40 MG VIAL IVP SCH ×2 (08:26→21:43)
[2023-05-21] MEDS: Escitalopram Oxalate 20 mg Tablet PO SCH (08:27)
[2023-05-21] MEDS: Sertraline 25 MG TAB PO SCH (08:27)
[2023-05-21 08:59] LABS: Band 26 % (5-11); Eosinophils 2 % (0-10); Lymphocytes 23 % (21-51); Monocytes 2 % (0-10); Neutrophil 46 % (42-75); Reactive Lymphocytes 1 % (0-10)
[2023-05-21 09:00] LABS: Polychromasia SLIGHT = 2-3 cells (100X) (0-2/hpf)
[2023-05-21 09:01] LABS: Platelet Adequacy Comment Platelets Normal
[2023-05-21] MEDS: Acetaminophen 325 MG TAB PO PRN ×2 (12:56→21:49)
[2023-05-21] MEDS: DAPTOmycin 400 MG in Sodium Chloride 0.9% 50 ML IVPB SCH (21:42)
[2023-05-21] MEDS: Mirtazapine 15 MG TAB PO SCH (21:44)
[2023-05-21] MEDS: Insulin Glargine 30 UNITS/0.3 ML VIAL SC SCH (21:45)
[2023-05-22] MEDS: NS 0.9% w/ 20 MEQ KCL 1,000 ML/1,000 ML BAG IV SCH (05:19)
[2023-05-22] MEDS: Cefepime 2 GM in Sodium Chloride 0.9% 100 ML IVPB SCH ×3 (06:02→22:37)
[2023-05-22 06:39] LABS: Hematocrit 25.3 % (36.0-47.0); Hemoglobin 8.2 g/dL (12.0-16.0); Manual Diff?? YES; Mean Corpuscular HGB CONC 32.4 g/dL (32.0-36.0); Mean Corpuscular Volume 98.8 fl (78.0-98.0); Mean Platelet Volume 9.7 fL (7.4-10.4); Platelet Count 130 10x3/uL (130-400); RBC Distribution Width 15.8 % (11.5-14.5); Red Blood Cell (RBC) Count 2.56 mill/uL (4.20-5.40); White Blood Cell (WBC) Count 4.9 10x3/uL (4.8-10.8)
[2023-05-22 06:41] LABS: Delete Auto Diff?? YES
[2023-05-22 07:19] LABS: Anion Gap 11 mmol/L (10-20); BUN (Urea Nitrogen) 13 mg/dL (9.8-20.1); CRP (Inflammatory) 12.22 mg/dL (= or < 0.5); Calc. Creatinine Clearance 121 mL/min (70-130); Calcium 7.3 mg/dL (7.8-10.44); Carbon Dioxide 27 mmol/L (22-29); Chloride 107 mmol/L (98-107); Estimated GFR 111; Glucose 130 mg/dL (70-105); Magnesium 1.5 mg/dL (1.6-2.6); Phosphorus 2.6 mg/dL (2.3-4.7); Potassium 3.5 mmol/L (3.5-5.1); Sodium 141 mmol/L (136-145)
[2023-05-22 07:24] LABS: Band 20 % (5-11); CellaVision Operator ID LAB.GE; Lymphocytes 8 % (21-51); Metamyelocyte 1 % (0-0); Monocytes 6 % (0-10); Neutrophil 61 % (42-75); Platelet Adequacy Comment Platelets Normal; Polychromasia SLIGHT = 2-3 cells HPF (0-2); Reactive Lymphocytes 1 % (0-10); Total Cell Count 99
[2023-05-22] MEDS ORDERED: Potassium Chloride 20 MEQ TAB PO SCH (08:00)
[2023-05-22] MEDS ORDERED: Magnesium 2 GM/50 ML(in water) 2 GM in Premix 1 BAG IVPB SCH ×2 (08:00→10:30)
[2023-05-22] MEDS: Ciprofloxacin 0.3% Ophth Soln 2.5 ml Bottle R EYE SCH ×4 (08:45→20:26)
[2023-05-22] MEDS: Escitalopram Oxalate 20 mg Tablet PO SCH (08:46)
[2023-05-22] MEDS: Dronabinol 2.5 MG CAP PO SCH ×2 (08:46→15:59)
[2023-05-22] MEDS: Sertraline 25 MG TAB PO SCH (08:46)
[2023-05-22] MEDS: Pantoprazole 40 MG VIAL IVP SCH ×2 (08:46→20:26)
[2023-05-22] MEDS: DAPTOmycin 400 MG in Sodium Chloride 0.9% 50 ML IVPB SCH (20:26)
[2023-05-22] MEDS: Apixaban 5 MG TAB PO SCH (20:26)
[2023-05-22] MEDS: Mirtazapine 15 MG TAB PO SCH (20:26)
[2023-05-22] MEDS: Insulin Glargine 30 UNITS/0.3 ML VIAL SC SCH (22:37)
[2023-05-23] MEDS: Cefepime 2 GM in Sodium Chloride 0.9% 100 ML IVPB SCH ×2 (05:34→13:05)
[2023-05-23] MEDS: NS 0.9% w/ 20 MEQ KCL 1,000 ML/1,000 ML BAG IV SCH (05:37)
[2023-05-23] MEDS: Sertraline 25 MG TAB PO SCH (08:40)
[2023-05-23] MEDS: Apixaban 5 MG TAB PO SCH ×2 (08:40→20:28)
[2023-05-23] MEDS: Dronabinol 2.5 MG CAP PO SCH ×2 (08:40→17:37)
[2023-05-23] MEDS: Escitalopram Oxalate 20 mg Tablet PO SCH (08:40)
[2023-05-23] MEDS: Pantoprazole 40 MG VIAL IVP SCH (08:41)
[2023-05-23 09:03] LABS: Hematocrit 27.2 % (36.0-47.0); Hemoglobin 8.7 g/dL (12.0-16.0); Manual Diff?? YES; Mean Corpuscular Hemoglobin 32.1 pg (27.0-31.0); Mean Corpuscular Volume 100.4 fl (78.0-98.0); Mean Platelet Volume 10.3 fL (7.4-10.4); Platelet Count 176 10x3/uL (130-400); Red Blood Cell (RBC) Count 2.71 mill/uL (4.20-5.40); White Blood Cell (WBC) Count 5.2 10x3/uL (4.8-10.8)
[2023-05-23] MEDS: Ciprofloxacin 0.3% Ophth Soln 2.5 ml Bottle R EYE SCH ×3 (09:25→18:36)
[2023-05-23 09:28] LABS: Anion Gap 14 mmol/L (10-20); BUN (Urea Nitrogen) 16 mg/dL (9.8-20.1); Calc. Creatinine Clearance 94 mL/min (70-130); Calcium 7.5 mg/dL (7.8-10.44); Carbon Dioxide 25 mmol/L (22-29); Chloride 107 mmol/L (98-107); Estimated GFR 104; Glucose 144 mg/dL (70-105); Magnesium 2.2 mg/dL (1.6-2.6); Potassium 4.2 mmol/L (3.5-5.1); Sodium 142 mmol/L (136-145)
[2023-05-23 09:37] LABS: Delete Auto Diff?? YES
[2023-05-23 10:10] LABS: Anisocytosis SLIGHT = 6-15 cells HPF (0-5); Band 14 % (5-11); CellaVision Operator ID LAB.NR; Eosinophils 1 % (0-10); Lymphocytes 15 % (21-51); Macrocytosis SLIGHT = 6-15 cells HPF (0-5); Monocytes 11 % (0-10); Neutrophil 59 % (42-75); Platelet Adequacy Comment Platelets Normal; Polychromasia SLIGHT = 2-3 cells HPF (0-2); Smudge Cells 25.7 %; Total Cell Count 101; Vacuoles SLIGHT
[2023-05-23] MEDS ORDERED: Meropenem 1 GM in Sodium Chloride 0.9% 100 ML IVPB SCH ×2 (17:00→22:00)
[2023-05-23] MEDS ORDERED: Meropenem 2 GM, Admixture Fee 1 EACH in Sodium Chloride 0.9% 100 ML IVPB SCH ×2 (17:15→22:00)
[2023-05-23] MEDS: DAPTOmycin 400 MG in Sodium Chloride 0.9% 50 ML IVPB SCH (20:27)
[2023-05-23] MEDS: Mirtazapine 15 MG TAB PO SCH (20:28)
[2023-05-23] MEDS: Insulin Glargine 30 UNITS/0.3 ML VIAL SC SCH (21:10)
[2023-05-23] MEDS ORDERED: Meropenem 2 GM in Sodium Chloride 0.9% 100 ML IVPB SCH (22:00)
[2023-05-24] MEDS: Meropenem 2 GM, Admixture Fee 1 EACH in Sodium Chloride 0.9% 100 ML IVPB SCH ×3 (00:10→16:19)
[2023-05-24] MEDS: Dronabinol 2.5 MG CAP PO SCH ×2 (07:29→16:19)
[2023-05-24 07:32] LABS: #Monocytes 0.5 thou/uL (0.11-0.59); #Neutrophils 2.7 thou/uL (1.40-6.50); %Basophils 0.2 % (0.0-1.0); %Eosinophils 0.9 % (0.0-10.0); %Lymphocytes 30.8 % (21.0-51.0); %Monocytes 10.1 % (0.0-10.0); %Neutrophils 57.6 % (42.0-75.0); Hematocrit 25.5 % (36.0-47.0); Hemoglobin 8.3 g/dL (12.0-16.0); Manual Diff?? YES; Mean Corpuscular HGB CONC 32.5 g/dL (32.0-36.0); Mean Corpuscular Hemoglobin 32.2 pg (27.0-31.0); Mean Corpuscular Volume 98.8 fl (78.0-98.0); Mean Platelet Volume 10.1 fL (7.4-10.4); Platelet Count 170 10x3/uL (130-400); RBC Distribution Width 15.8 % (11.5-14.5); Red Blood Cell (RBC) Count 2.58 mill/uL (4.20-5.40); White Blood Cell (WBC) Count 4.7 10x3/uL (4.8-10.8)
[2023-05-24 07:46] LABS: Anion Gap 15 mmol/L (10-20); BUN (Urea Nitrogen) 12 mg/dL (9.8-20.1); Calc. Creatinine Clearance 107 mL/min (70-130); Calcium 7.4 mg/dL (7.8-10.44); Carbon Dioxide 21 mmol/L (22-29); Chloride 107 mmol/L (98-107); Estimated GFR 107; Glucose 166 mg/dL (70-105); Potassium 3.8 mmol/L (3.5-5.1); Sodium 139 mmol/L (136-145)
[2023-05-24 08:34] LABS: Anisocytosis SLIGHT = 6-15 cells HPF (0-5); CellaVision Operator ID LAB.NR; Hypochromia SLIGHT = 6-15 cells HPF (0-5); Platelet Adequacy Comment Platelets Normal; Polychromasia SLIGHT = 2-3 cells HPF (0-2)
[2023-05-24] MEDS: NS 0.9% w/ 20 MEQ KCL 1,000 ML/1,000 ML BAG IV SCH ×2 (08:54→14:54)
[2023-05-24] MEDS: Apixaban 5 MG TAB PO SCH ×2 (08:54→21:11)
[2023-05-24] MEDS: Escitalopram Oxalate 20 mg Tablet PO SCH (08:54)
[2023-05-24] MEDS: Sertraline 25 MG TAB PO SCH (08:54)
[2023-05-24] MEDS: Mirtazapine 15 MG TAB PO SCH (21:11)
[2023-05-24] MEDS: Insulin Glargine 30 UNITS/0.3 ML VIAL SC SCH (21:12)
[2023-05-24] MEDS: DAPTOmycin 400 MG in Sodium Chloride 0.9% 50 ML IVPB SCH (22:10)
[2023-05-25] MEDS: Meropenem 2 GM, Admixture Fee 1 EACH in Sodium Chloride 0.9% 100 ML IVPB SCH ×3 (00:51→18:15)
[2023-05-25] MEDS: Dronabinol 2.5 MG CAP PO SCH ×2 (07:08→17:04)
[2023-05-25 09:55] LABS: Hematocrit 26.6 % (36.0-47.0); Hemoglobin 8.4 g/dL (12.0-16.0); Manual Diff?? YES; Mean Corpuscular HGB CONC 31.6 g/dL (32.0-36.0); Mean Corpuscular Hemoglobin 32.1 pg (27.0-31.0); Mean Corpuscular Volume 101.5 fl (78.0-98.0); Platelet Count 197 10x3/uL (130-400); RBC Distribution Width 15.6 % (11.5-14.5); Red Blood Cell (RBC) Count 2.62 mill/uL (4.20-5.40); White Blood Cell (WBC) Count 5.4 10x3/uL (4.8-10.8)
[2023-05-25 10:01] LABS: Delete Auto Diff?? YES
[2023-05-25 10:25] LABS: Anion Gap 10 mmol/L (10-20); BUN (Urea Nitrogen) 13 mg/dL (9.8-20.1); Calc. Creatinine Clearance 95 mL/min (70-130); Calcium 7.4 mg/dL (7.8-10.44); Carbon Dioxide 27 mmol/L (22-29); Chloride 106 mmol/L (98-107); Estimated GFR 105; Glucose 82 mg/dL (70-105); Sodium 140 mmol/L (136-145)
[2023-05-25] MEDS: Sertraline 25 MG TAB PO SCH (10:35)
[2023-05-25] MEDS: Apixaban 5 MG TAB PO SCH ×2 (10:35→20:39)
[2023-05-25] MEDS: Escitalopram Oxalate 20 mg Tablet PO SCH (10:35)
[2023-05-25 12:01] LABS: Band 14 % (5-11); Eosinophils 4 % (0-10); Lymphocytes 17 % (21-51); Monocytes 11 % (0-10); Neutrophil 53 % (42-75)
[2023-05-25 12:12] LABS: Anisocytosis SLIGHT = 6-15 cells (100X) (0-5/hpf); Macrocytosis SLIGHT = 6-15 cells (100X) (0-5/hpf); Smudge Cells SLIGHT
[2023-05-25 12:13] LABS: Platelet Adequacy Comment Platelets Normal
[2023-05-25] MEDS ORDERED: Potassium Chloride 20 MEQ TAB PO SCH (12:15)
[2023-05-25] MEDS: NS 0.9% w/ 20 MEQ KCL 1,000 ML/1,000 ML BAG IV SCH (13:11)
[2023-05-25] MEDS: Ciprofloxacin 0.3% Ophth Soln 2.5 ml Bottle R EYE SCH ×3 (13:21→20:40)
[2023-05-25] MEDS: Potassium Bicarbonate/Cit Ac 20 MEQ TAB PO SCH ×2 (13:22→18:15)
[2023-05-25] MEDS: Mirtazapine 15 MG TAB PO SCH (20:39)
[2023-05-25] MEDS: Insulin Glargine 30 UNITS/0.3 ML VIAL SC SCH (20:40)
[2023-05-25] MEDS: DAPTOmycin 400 MG in Sodium Chloride 0.9% 50 ML IVPB SCH (22:18)
[2023-05-26] MEDS: Potassium Chloride 20 MEQ TAB PO SCH ×2 (00:19→00:36)
[2023-05-26] MEDS: Meropenem 2 GM, Admixture Fee 1 EACH in Sodium Chloride 0.9% 100 ML IVPB SCH ×3 (00:20→16:56)
[2023-05-26] MEDS: Dronabinol 2.5 MG CAP PO SCH ×2 (07:11→16:56)
[2023-05-26] MEDS: Sertraline 25 MG TAB PO SCH (09:00)
[2023-05-26] MEDS: Escitalopram Oxalate 20 mg Tablet PO SCH (09:00)
[2023-05-26] MEDS: Apixaban 5 MG TAB PO SCH ×2 (09:00→20:55)
[2023-05-26] MEDS: Ciprofloxacin 0.3% Ophth Soln 2.5 ml Bottle R EYE SCH ×4 (09:06→20:55)
[2023-05-26] MEDS: DAPTOmycin 400 MG in Sodium Chloride 0.9% 50 ML IVPB SCH (20:54)
[2023-05-26] MEDS: Mirtazapine 15 MG TAB PO SCH (20:55)
[2023-05-27] MEDS: Meropenem 2 GM, Admixture Fee 1 EACH in Sodium Chloride 0.9% 100 ML IVPB SCH ×3 (00:01→16:22)
[2023-05-27] MEDS: Dronabinol 2.5 MG CAP PO SCH ×2 (08:38→16:22)
[2023-05-27] MEDS: Apixaban 5 MG TAB PO SCH ×2 (08:38→19:57)
[2023-05-27] MEDS: Escitalopram Oxalate 20 mg Tablet PO SCH (08:38)
[2023-05-27] MEDS: Ciprofloxacin 0.3% Ophth Soln 2.5 ml Bottle R EYE SCH ×4 (08:38→19:57)
[2023-05-27] MEDS: Sertraline 25 MG TAB PO SCH (08:38)
[2023-05-27 16:37] LABS: Fungus Stain Final report (.)
[2023-05-27] MEDS: HumaLOG 300 UNITS/3 ML VIAL SC PRN (17:15)
[2023-05-27] MEDS: DAPTOmycin 400 MG in Sodium Chloride 0.9% 50 ML IVPB SCH (19:56)
[2023-05-27] MEDS: Mirtazapine 15 MG TAB PO SCH (19:57)
[2023-05-28] MEDS: Meropenem 2 GM, Admixture Fee 1 EACH in Sodium Chloride 0.9% 100 ML IVPB SCH ×3 (00:26→21:06)
[2023-05-28] MEDS: Dronabinol 2.5 MG CAP PO SCH ×2 (09:00→16:23)
[2023-05-28] MEDS: Sertraline 25 MG TAB PO SCH (09:00)
[2023-05-28] MEDS: Escitalopram Oxalate 20 mg Tablet PO SCH (09:00)
[2023-05-28] MEDS: Apixaban 5 MG TAB PO SCH ×2 (09:00→21:06)
[2023-05-28] MEDS: Ciprofloxacin 0.3% Ophth Soln 2.5 ml Bottle R EYE SCH ×4 (14:22→21:06)
[2023-05-28] MEDS: Vancomycin HCl 750 MG in Sodium Chloride 0.9% 250 ML 250 ML IVPB SCH (17:52)
[2023-05-28] MEDS: Mirtazapine 15 MG TAB PO SCH (21:06)
[2023-05-29] MEDS: Meropenem 2 GM, Admixture Fee 1 EACH in Sodium Chloride 0.9% 100 ML IVPB SCH ×3 (03:25→21:52)
[2023-05-29] MEDS: Vancomycin HCl 750 MG in Sodium Chloride 0.9% 250 ML 250 ML IVPB SCH ×2 (06:24→16:58)
[2023-05-29] MEDS: Dronabinol 2.5 MG CAP PO SCH ×2 (08:25→16:57)
[2023-05-29] MEDS: Sertraline 25 MG TAB PO SCH (08:25)
[2023-05-29] MEDS: Ciprofloxacin 0.3% Ophth Soln 2.5 ml Bottle R EYE SCH ×4 (08:25→21:51)
[2023-05-29] MEDS: Escitalopram Oxalate 20 mg Tablet PO SCH (08:25)
[2023-05-29] MEDS: Apixaban 5 MG TAB PO SCH ×2 (08:25→21:51)
[2023-05-29] MEDS: Mirtazapine 15 MG TAB PO SCH (21:51)
[2023-05-30] MEDS: Meropenem 2 GM, Admixture Fee 1 EACH in Sodium Chloride 0.9% 100 ML IVPB SCH ×3 (05:00→21:45)
[2023-05-30] MEDS: Apixaban 5 MG TAB PO SCH ×2 (10:12→21:48)
[2023-05-30] MEDS: Sertraline 25 MG TAB PO SCH (10:12)
[2023-05-30] MEDS: Escitalopram Oxalate 20 mg Tablet PO SCH (10:12)
[2023-05-30] MEDS: Dronabinol 2.5 MG CAP PO SCH ×2 (10:12→18:04)
[2023-05-30] MEDS: Ciprofloxacin 0.3% Ophth Soln 2.5 ml Bottle R EYE SCH ×4 (10:12→21:48)
[2023-05-30] MEDS: Vancomycin HCl 750 MG in Sodium Chloride 0.9% 250 ML 250 ML IVPB SCH ×2 (10:12→19:08)
[2023-05-30] MEDS: HumaLOG 300 UNITS/3 ML VIAL SC PRN (13:49)
[2023-05-30 17:15] LABS: Vancomycin, Trough 26.4 ug/mL
[2023-05-30] MEDS: Mirtazapine 15 MG TAB PO SCH (21:49)
[2023-05-31] MEDS: Meropenem 2 GM, Admixture Fee 1 EACH in Sodium Chloride 0.9% 100 ML IVPB SCH ×3 (04:51→21:29)
[2023-05-31] MEDS: Vancomycin HCl 500 MG in Sodium Chloride 0.9% 100 ML IVPB SCH ×2 (08:06→17:10)
[2023-05-31] MEDS: Apixaban 5 MG TAB PO SCH ×2 (08:07→21:29)
[2023-05-31] MEDS: Escitalopram Oxalate 20 mg Tablet PO SCH (08:07)
[2023-05-31] MEDS: Dronabinol 2.5 MG CAP PO SCH ×2 (08:07→17:10)
[2023-05-31] MEDS: Ciprofloxacin 0.3% Ophth Soln 2.5 ml Bottle R EYE SCH ×4 (08:07→21:58)
[2023-05-31] MEDS: metFORMIN 500 MG TAB PO SCH (08:09)
[2023-05-31] MEDS: Mirtazapine 15 MG TAB PO SCH (21:29)
[2023-06-01] MEDS: Meropenem 2 GM, Admixture Fee 1 EACH in Sodium Chloride 0.9% 100 ML IVPB SCH (04:57)
[2023-06-01 05:14] LABS: #Monocytes 0.5 thou/uL (0.11-0.59); #Neutrophils 2.2 thou/uL (1.40-6.50); %Basophils 0.7 % (0.0-1.0); %Eosinophils 0.9 % (0.0-10.0); %Lymphocytes 39.6 % (21.0-51.0); %Neutrophils 47.1 % (42.0-75.0); Hematocrit 23.7 % (36.0-47.0); Hemoglobin 7.9 g/dL (12.0-16.0); Mean Corpuscular HGB CONC 33.3 g/dL (32.0-36.0); Mean Corpuscular Hemoglobin 31.5 pg (27.0-31.0); Mean Corpuscular Volume 94.4 fl (78.0-98.0); Mean Platelet Volume 9.4 fL (7.4-10.4); Platelet Count 225 10x3/uL (130-400); RBC Distribution Width 15.9 % (11.5-14.5); Red Blood Cell (RBC) Count 2.51 mill/uL (4.20-5.40); White Blood Cell (WBC) Count 4.6 10x3/uL (4.8-10.8)
[2023-06-01] MEDS: HumaLOG 300 UNITS/3 ML VIAL SC PRN (06:33)
[2023-06-01] MEDS: Vancomycin HCl 500 MG in Sodium Chloride 0.9% 100 ML IVPB SCH (07:31)
[2023-06-01] MEDS: metFORMIN 500 MG TAB PO SCH (08:44)
[2023-06-01] MEDS: Ciprofloxacin 0.3% Ophth Soln 2.5 ml Bottle R EYE SCH ×4 (08:44→21:35)
[2023-06-01] MEDS: Apixaban 5 MG TAB PO SCH ×2 (08:45→21:32)
[2023-06-01] MEDS: Escitalopram Oxalate 20 mg Tablet PO SCH (08:45)
[2023-06-01] MEDS: Dronabinol 2.5 MG CAP PO SCH ×2 (08:45→17:00)
[2023-06-01] MEDS ORDERED: Sodium Chloride 0.9% 500 ML IV SCH (17:45)
[2023-06-01 18:06] LABS: Vancomycin, Trough 21.9 ug/mL
[2023-06-01] MEDS ORDERED: Sodium Chloride 0.9% 1,000 ML IV SCH (18:45)
[2023-06-01] MEDS: Mirtazapine 15 MG TAB PO SCH (21:32)
[2023-06-02 06:28] LABS: #Monocytes 0.5 thou/uL (0.11-0.59); #Neutrophils 2.6 thou/uL (1.40-6.50); %Basophils 0.4 % (0.0-1.0); %Eosinophils 0.6 % (0.0-10.0); %Lymphocytes 40.1 % (21.0-51.0); %Monocytes 9.3 % (0.0-10.0); Hematocrit 23.6 % (36.0-47.0); Hemoglobin 8.1 g/dL (12.0-16.0); Mean Corpuscular HGB CONC 34.3 g/dL (32.0-36.0); Mean Corpuscular Hemoglobin 32.1 pg (27.0-31.0); Mean Corpuscular Volume 93.7 fl (78.0-98.0); Mean Platelet Volume 9.5 fL (7.4-10.4); Platelet Count 228 10x3/uL (130-400); Red Blood Cell (RBC) Count 2.52 mill/uL (4.20-5.40); White Blood Cell (WBC) Count 5.4 10x3/uL (4.8-10.8)
[2023-06-02] MEDS: metFORMIN 500 MG TAB PO SCH (07:37)
[2023-06-02] MEDS: Dronabinol 2.5 MG CAP PO SCH ×2 (07:37→16:27)
[2023-06-02 07:39] LABS: Anion Gap 10 mmol/L (10-20); BUN (Urea Nitrogen) 14 mg/dL (9.8-20.1); Calc. Creatinine Clearance 78 mL/min (70-130); Carbon Dioxide 29 mmol/L (22-29); Chloride 102 mmol/L (98-107); Estimated GFR 89; Glucose 153 mg/dL (70-105); Sodium 139 mmol/L (136-145)
[2023-06-02] MEDS: Apixaban 5 MG TAB PO SCH ×2 (09:17→20:38)
[2023-06-02] MEDS: Ciprofloxacin 0.3% Ophth Soln 2.5 ml Bottle R EYE SCH ×4 (09:17→20:38)
[2023-06-02] MEDS: Escitalopram Oxalate 20 mg Tablet PO SCH (09:17)
[2023-06-02 10:03] LABS: Calcium 7.1 mg/dL (7.8-10.44)
[2023-06-02 10:13] LABS: Critical Call Chemistry NUR.DB4@1012; Potassium 2.1 mmol/L (3.5-5.1)
[2023-06-02] MEDS ORDERED: Potassium Chloride 40 MEQ in Premix 1 BAG IVPB SCH (11:45)
[2023-06-02] MEDS: Potassium Chloride 20 MEQ in Premix 1 BAG IVPB SCH ×4 (12:07→18:44)
[2023-06-02 12:25] LABS: Magnesium 1.7 mg/dL (1.6-2.6)
[2023-06-02] MEDS ORDERED: Magnesium 2 GM/50 ML(in water) 2 GM in Premix 1 BAG IVPB SCH (13:00)
[2023-06-02] MEDS: OLANZapine 5 MG TAB PO SCH (20:38)
[2023-06-02] MEDS: Mirtazapine 15 MG TAB PO SCH (20:38)
[2023-06-03] MEDS: HumaLOG 300 UNITS/3 ML VIAL SC PRN (05:57)
[2023-06-03 06:21] LABS: Anion Gap 12 mmol/L (10-20); BUN (Urea Nitrogen) 17 mg/dL (9.8-20.1); Calc. Creatinine Clearance 78 mL/min (70-130); Carbon Dioxide 26 mmol/L (22-29); Chloride 103 mmol/L (98-107); Estimated GFR 89; Glucose 172 mg/dL (70-105); Magnesium 2.2 mg/dL (1.6-2.6); Potassium 3.3 mmol/L (3.5-5.1); Sodium 138 mmol/L (136-145)
[2023-06-03] MEDS ORDERED: Potassium Chloride 20 MEQ TAB PO SCH (08:30)
[2023-06-03] MEDS: Ciprofloxacin 0.3% Ophth Soln 2.5 ml Bottle R EYE SCH ×4 (08:43→21:24)
[2023-06-03] MEDS: Ondansetron PF 4 MG/2 ML Vial IVP PRN (08:43)
[2023-06-03 08:53] LABS: #Monocytes 0.5 thou/uL (0.11-0.59); #Neutrophils 2.9 thou/uL (1.40-6.50); %Basophils 0.5 % (0.0-1.0); %Eosinophils 0.7 % (0.0-10.0); %Lymphocytes 41.8 % (21.0-51.0); %Monocytes 8.8 % (0.0-10.0); %Neutrophils 47.9 % (42.0-75.0); Hematocrit 22.9 % (36.0-47.0); Hemoglobin 7.7 g/dL (12.0-16.0); Mean Corpuscular HGB CONC 33.6 g/dL (32.0-36.0); Mean Corpuscular Hemoglobin 32.5 pg (27.0-31.0); Mean Platelet Volume 10.3 fL (7.4-10.4); Platelet Count 229 10x3/uL (130-400); RBC Distribution Width 17.2 % (11.5-14.5); Red Blood Cell (RBC) Count 2.37 mill/uL (4.20-5.40)
[2023-06-03 08:54] LABS: Mean Corpuscular Volume 96.6 fl (78.0-98.0)
[2023-06-03] MEDS: Dronabinol 2.5 MG CAP PO SCH ×2 (11:21→16:03)
[2023-06-03] MEDS: metFORMIN 500 MG TAB PO SCH (11:21)
[2023-06-03] MEDS: Escitalopram Oxalate 20 mg Tablet PO SCH (11:22)
[2023-06-03 17:17] LABS: Hematocrit 20.5 % (36.0-47.0); Platelet Count 194 10x3/uL (130-400)
[2023-06-03] MEDS: OLANZapine 5 MG TAB PO SCH (21:23)
[2023-06-03] MEDS: Pantoprazole 40 MG VIAL IVP SCH (21:23)
[2023-06-03] MEDS: Mirtazapine 15 MG TAB PO SCH (21:23)
[2023-06-04 05:40] LABS: Hematocrit 19.8 % (36.0-47.0); Hemoglobin 6.6 g/dL (12.0-16.0); Manual Diff?? YES; Mean Corpuscular HGB CONC 33.3 g/dL (32.0-36.0); Mean Corpuscular Hemoglobin 31.9 pg (27.0-31.0); Mean Corpuscular Volume 95.7 fl (78.0-98.0); Platelet Count 189 10x3/uL (130-400); RBC Distribution Width 16.9 % (11.5-14.5); Red Blood Cell (RBC) Count 2.07 mill/uL (4.20-5.40); White Blood Cell (WBC) Count 4.6 10x3/uL (4.8-10.8)
[2023-06-04 06:21] LABS: Delete Auto Diff?? YES
[2023-06-04] MEDS: HumaLOG 300 UNITS/3 ML VIAL SC PRN (06:33)
[2023-06-04 07:38] LABS: Band 19 % (5-11); Eosinophils 1 % (0-10); Lymphocytes 30 % (21-51); Monocytes 2 % (0-10); Neutrophil 48 % (42-75); Polychromasia SLIGHT = 2-3 cells (100X) (0-2/hpf)
[2023-06-04 07:39] LABS: Platelet Adequacy Comment Platelets Normal
[2023-06-04] MEDS: Escitalopram Oxalate 20 mg Tablet PO SCH (08:17)
[2023-06-04] MEDS: metFORMIN 500 MG TAB PO SCH (08:17)
[2023-06-04] MEDS: Dronabinol 2.5 MG CAP PO SCH ×2 (08:17→16:58)
[2023-06-04] MEDS: Pantoprazole 40 MG VIAL IVP SCH ×2 (08:17→22:28)
[2023-06-04] MEDS: Ciprofloxacin 0.3% Ophth Soln 2.5 ml Bottle R EYE SCH ×4 (08:18→22:28)
[2023-06-04] MEDS ORDERED: GoLYTELY 4,000 ml Bottle PO SCH (13:00)
[2023-06-04 19:53] LABS: Hematocrit 24.1 % (36.0-47.0); Hemoglobin 8.2 g/dL (12.0-16.0); Platelet Count 182 10x3/uL (130-400)
[2023-06-04] MEDS: Mirtazapine 15 MG TAB PO SCH (22:27)
[2023-06-04] MEDS: OLANZapine 5 MG TAB PO SCH (22:28)
[2023-06-05] MEDS: Dronabinol 2.5 MG CAP PO SCH ×2 (06:30→16:39)
[2023-06-05] MEDS ORDERED: Lidocaine 2% PF 5 ML VIAL ONE (08:35)
[2023-06-05] MEDS ORDERED: PROPOFOL 40 ML ONE (08:35)
[2023-06-05] MEDS: metFORMIN 500 MG TAB PO SCH (08:55)
[2023-06-05] MEDS: Escitalopram Oxalate 20 mg Tablet PO SCH (08:55)
[2023-06-05] MEDS: Ciprofloxacin 0.3% Ophth Soln 2.5 ml Bottle R EYE SCH ×4 (10:52→21:33)
[2023-06-05] MEDS: Pantoprazole 40 MG VIAL IVP SCH ×2 (10:52→21:33)
[2023-06-05] MEDS: OLANZapine 5 MG TAB PO SCH (21:33)
[2023-06-05] MEDS: Mirtazapine 15 MG TAB PO SCH (21:33)
[2023-06-06] MEDS ORDERED: GoLYTELY 4,000 ml Bottle PO SCH (03:45)
[2023-06-06] MEDS: metFORMIN 500 MG TAB PO SCH (09:07)
[2023-06-06] MEDS: Ciprofloxacin 0.3% Ophth Soln 2.5 ml Bottle R EYE SCH ×4 (09:08→21:22)
[2023-06-06] MEDS: Escitalopram Oxalate 20 mg Tablet PO SCH (09:08)
[2023-06-06] MEDS: Pantoprazole 40 MG VIAL IVP SCH ×2 (09:08→21:21)
[2023-06-06] MEDS: Dronabinol 2.5 MG CAP PO SCH ×2 (09:08→17:10)
[2023-06-06] MEDS: Mirtazapine 15 MG TAB PO SCH (21:21)
[2023-06-06] MEDS: OLANZapine 5 MG TAB PO SCH (21:21)
[2023-06-07 07:08] LABS: Hematocrit 24.3 % (36.0-47.0); Hemoglobin 8.1 g/dL (12.0-16.0); Manual Diff?? YES; Mean Corpuscular HGB CONC 33.3 g/dL (32.0-36.0); Mean Corpuscular Hemoglobin 31.2 pg (27.0-31.0); Mean Corpuscular Volume 93.5 fl (78.0-98.0); Mean Platelet Volume 9.7 fL (7.4-10.4); Platelet Count 166 10x3/uL (130-400); RBC Distribution Width 17.3 % (11.5-14.5); White Blood Cell (WBC) Count 3.7 10x3/uL (4.8-10.8)
[2023-06-07 07:41] LABS: Delete Auto Diff?? YES
[2023-06-07 07:44] LABS: Calcium 6.9 mg/dL (7.8-10.44); Potassium 2.4 mmol/L (3.5-5.1)
[2023-06-07] MEDS ORDERED: Potassium Chloride 40 MEQ in Premix 1 BAG IVPB SCH (08:00)
[2023-06-07] MEDS: Potassium Chloride 20 MEQ in Premix 1 BAG IVPB SCH ×4 (08:28→15:02)
[2023-06-07] MEDS: Ciprofloxacin 0.3% Ophth Soln 2.5 ml Bottle R EYE SCH ×4 (08:28→21:06)
[2023-06-07] MEDS: Dronabinol 2.5 MG CAP PO SCH ×2 (08:28→16:14)
[2023-06-07] MEDS: Escitalopram Oxalate 20 mg Tablet PO SCH (08:28)
[2023-06-07] MEDS: metFORMIN 500 MG TAB PO SCH (08:42)
[2023-06-07] MEDS: Pantoprazole 40 MG VIAL IVP SCH ×2 (08:42→21:03)
[2023-06-07 09:04] LABS: Anisocytosis SLIGHT = 6-15 cells HPF (0-5); Band 14 % (5-11); CellaVision Operator ID LAB.NR; Hypochromia SLIGHT = 6-15 cells HPF (0-5); Large Platelets 14.3 % (0-5); Neutrophil 86 % (42-75); Platelet Adequacy Comment Platelets Normal; Polychromasia SLIGHT = 2-3 cells HPF (0-2); Smudge Cells 57.1 %; Total Cell Count 7
[2023-06-07] MEDS: OLANZapine 5 MG TAB PO SCH (21:03)
[2023-06-07] MEDS: Mirtazapine 15 MG TAB PO SCH (21:04)
[2023-06-07 21:51] LABS: Potassium 3.4 mmol/L (3.5-5.1)
[2023-06-08] MEDS: metFORMIN 500 MG TAB PO SCH (09:15)
[2023-06-08] MEDS: Dronabinol 2.5 MG CAP PO SCH ×2 (09:15→15:39)
[2023-06-08] MEDS: Escitalopram Oxalate 20 mg Tablet PO SCH (09:15)
[2023-06-08] MEDS: Pantoprazole 40 MG VIAL IVP SCH ×2 (09:16→20:54)
[2023-06-08] MEDS: Ciprofloxacin 0.3% Ophth Soln 2.5 ml Bottle R EYE SCH ×4 (09:16→20:54)
[2023-06-08 10:06] LABS: Hemoglobin 9.1 g/dL (12.0-16.0); Manual Diff?? YES; Mean Corpuscular HGB CONC 31.4 g/dL (32.0-36.0); Mean Corpuscular Hemoglobin 30.8 pg (27.0-31.0); Mean Corpuscular Volume 98.3 fl (78.0-98.0); Mean Platelet Volume 9.6 fL (7.4-10.4); Platelet Count 184 10x3/uL (130-400); RBC Distribution Width 17.6 % (11.5-14.5); Red Blood Cell (RBC) Count 2.95 mill/uL (4.20-5.40); White Blood Cell (WBC) Count 3.9 10x3/uL (4.8-10.8)
[2023-06-08 10:13] LABS: Delete Auto Diff?? YES
[2023-06-08 10:32] LABS: Anion Gap 12 mmol/L (10-20); BUN (Urea Nitrogen) 14 mg/dL (9.8-20.1); Calc. Creatinine Clearance 115 mL/min (70-130); Calcium 7.2 mg/dL (7.8-10.44); Carbon Dioxide 25 mmol/L (22-29); Chloride 106 mmol/L (98-107); Estimated GFR 109; Glucose 169 mg/dL (70-105); Potassium 3.3 mmol/L (3.5-5.1); Sodium 140 mmol/L (136-145)
[2023-06-08 10:48] LABS: Band 32 % (5-11); Burr Cells SLIGHT = 2-5 cells HPF (0-1); CellaVision Operator ID LAB.GE; Lymphocytes 20 % (21-51); Macrocytosis SLIGHT = 6-15 cells HPF (0-5); Monocytes 3 % (0-10); Neutrophil 42 % (42-75); Platelet Adequacy Comment Platelets Normal; Polychromasia SLIGHT = 2-3 cells HPF (0-2); Total Cell Count 99; Toxic Granulation SLIGHT
[2023-06-08] MEDS: HumaLOG 300 UNITS/3 ML VIAL SC PRN (11:36)
[2023-06-08] MEDS ORDERED: Magnesium 2 GM/50 ML(in water) 2 GM in Premix 1 BAG IVPB SCH (13:45)
[2023-06-08] MEDS ORDERED: Electrolyte Replacement Protocol FS PRN (13:45)
[2023-06-08] MEDS ORDERED: Meropenem 1 GM in Sodium Chloride 0.9% 100 ML IVPB SCH ×2 (14:15→15:30)
[2023-06-08] MEDS: Potassium Chloride 20 MEQ in Premix 1 BAG IVPB SCH ×2 (14:21→17:38)
[2023-06-08] MEDS: Mirtazapine 15 MG TAB PO SCH (20:53)
[2023-06-08] MEDS: OLANZapine 5 MG TAB PO SCH (20:53)
[2023-06-08 22:43] LABS: Phosphorus 2.4 mg/dL (2.3-4.7)
[2023-06-08] MEDS: Meropenem 1 GM in Sodium Chloride 0.9% 100 ML IVPB SCH (23:09)
[2023-06-08] MEDS ORDERED: Potassium Chloride 20 MEQ in Premix 1 BAG IVPB SCH (23:45)
[2023-06-09 04:27] LABS: Hematocrit 22.4 % (36.0-47.0); Hemoglobin 7.2 g/dL (12.0-16.0); Manual Diff?? YES; Mean Corpuscular HGB CONC 32.1 g/dL (32.0-36.0); Mean Corpuscular Hemoglobin 30.3 pg (27.0-31.0); Mean Platelet Volume 9.5 fL (7.4-10.4); Platelet Count 156 10x3/uL (130-400); RBC Distribution Width 17.5 % (11.5-14.5); Red Blood Cell (RBC) Count 2.38 mill/uL (4.20-5.40); White Blood Cell (WBC) Count 3.7 10x3/uL (4.8-10.8)
[2023-06-09 04:31] LABS: Delete Auto Diff?? YES; Mean Corpuscular Volume 94.1 fl (78.0-98.0)
[2023-06-09 04:55] LABS: Anion Gap 8 mmol/L (10-20); BUN (Urea Nitrogen) 14 mg/dL (9.8-20.1); Calc. Creatinine Clearance 109 mL/min (70-130); Carbon Dioxide 27 mmol/L (22-29); Chloride 107 mmol/L (98-107); Estimated GFR 108; Glucose 226 mg/dL (70-105); Potassium 3.7 mmol/L (3.5-5.1); Sodium 138 mmol/L (136-145)
[2023-06-09 04:59] LABS: Band 35 % (5-11); CellaVision Operator ID LAB.CLH1; Eosinophils 1 % (0-10); Hypochromia SLIGHT = 6-15 cells HPF (0-5); Lymphocytes 23 % (21-51); Monocytes 3 % (0-10); Neutrophil 36 % (42-75); Platelet Adequacy Comment Platelets Normal; Polychromasia SLIGHT = 2-3 cells HPF (0-2); Total Cell Count 90
[2023-06-09] MEDS: HumaLOG 300 UNITS/3 ML VIAL SC PRN (06:02)
[2023-06-09] MEDS: Dronabinol 2.5 MG CAP PO SCH ×2 (07:22→16:33)
[2023-06-09] MEDS ORDERED: Magnesium 2 GM/50 ML(in water) 2 GM in Premix 1 BAG IVPB SCH (08:00)
[2023-06-09] MEDS: Escitalopram Oxalate 20 mg Tablet PO SCH (08:33)
[2023-06-09] MEDS: Pantoprazole 40 MG VIAL IVP SCH ×2 (08:33→21:58)
[2023-06-09] MEDS: metFORMIN 500 MG TAB PO SCH (08:33)
[2023-06-09] MEDS: Ciprofloxacin 0.3% Ophth Soln 2.5 ml Bottle R EYE SCH ×4 (08:33→21:58)
[2023-06-09] MEDS: Meropenem 1 GM in Sodium Chloride 0.9% 100 ML IVPB SCH ×2 (08:49→16:34)
[2023-06-09] MEDS: OLANZapine 5 MG TAB PO SCH (21:57)
[2023-06-09] MEDS: Mirtazapine 15 MG TAB PO SCH (21:57)
[2023-06-10 05:48] LABS: Hematocrit 24.3 % (36.0-47.0); Hemoglobin 7.8 g/dL (12.0-16.0); Manual Diff?? YES; Mean Corpuscular HGB CONC 32.1 g/dL (32.0-36.0); Mean Corpuscular Hemoglobin 30.4 pg (27.0-31.0); Mean Corpuscular Volume 94.6 fl (78.0-98.0); Mean Platelet Volume 9.7 fL (7.4-10.4); Platelet Count 168 10x3/uL (130-400); RBC Distribution Width 17.2 % (11.5-14.5); Red Blood Cell (RBC) Count 2.57 mill/uL (4.20-5.40); White Blood Cell (WBC) Count 3.7 10x3/uL (4.8-10.8)
[2023-06-10 05:56] LABS: Delete Auto Diff?? YES
[2023-06-10 06:20] LABS: Anion Gap 10 mmol/L (10-20); BUN (Urea Nitrogen) 15 mg/dL (9.8-20.1); Calc. Creatinine Clearance 111 mL/min (70-130); Carbon Dioxide 26 mmol/L (22-29); Chloride 107 mmol/L (98-107); Estimated GFR 108; Glucose 193 mg/dL (70-105); Potassium 3.5 mmol/L (3.5-5.1); Sodium 139 mmol/L (136-145)
[2023-06-10 06:23] LABS: Band 28 % (5-11); CellaVision Operator ID LAB.CLH1; Eosinophils 1 % (0-10); Hypochromia SLIGHT = 6-15 cells HPF (0-5); Lymphocytes 21 % (21-51); Metamyelocyte 1 % (0-0); Monocytes 1 % (0-10); Neutrophil 46 % (42-75); Platelet Adequacy Comment Platelets Normal; Polychromasia SLIGHT = 2-3 cells HPF (0-2); Total Cell Count 101
[2023-06-10] MEDS: Dronabinol 2.5 MG CAP PO SCH (06:56)
[2023-06-10] MEDS ORDERED: fentaNYL 50 mcg/mL 1 mL Vial ONE (07:27)
[2023-06-10] MEDS ORDERED: Midazolam HCl 2 mg/2 ml Vial ONE (07:27)
[2023-06-10 08:49] VITALS: BP 110/69; TEMP 98
[2023-06-10] MEDS: Pantoprazole 40 MG VIAL IVP SCH ×2 (09:26→11:48)
[2023-06-10] MEDS: Escitalopram Oxalate 20 mg Tablet PO SCH (09:26)
[2023-06-10] MEDS: Meropenem 1 GM in Sodium Chloride 0.9% 100 ML IVPB SCH ×4 (09:27→12:44)
[2023-06-10] MEDS: Ciprofloxacin 0.3% Ophth Soln 2.5 ml Bottle R EYE SCH ×3 (09:28→13:58)
[2023-06-10] MEDS ORDERED: Iopamidol 370 76% 100 ML VIAL ONE (11:49)
[2023-06-10] MEDS ORDERED: Potassium Chloride 20 MEQ in Premix 1 BAG IVPB SCH (13:30)
[2023-06-10] MEDS ORDERED: Potassium Chloride 20 MEQ TAB PO SCH (14:00)
[2023-06-18 11:14] LABS: Fungus Culture Final report (.)
== END 2023-06-10 15:26 | disposition short-term general hospital (02) | DRG 637 ==
LOC: ERS 20:58 → IMCU/EMU 23:25 → MSONC 04-19 15:24 → IMCU/EMU 04-25 20:30 → 2NO 04-28 20:36 → CCU 04-29 13:54 → IMCU/EMU 05-06 17:12 → MSONC 05-07 15:24
PROVIDERS: ADMIT Internal Medicine; ATTEND Internal Medicine
PROC: 3E03329 Introduction of Other Anti-infective into Peripheral Vein, Percutaneous Approach (ICD-10-PCS; 2023-04-16)
PROC: 30233J1 Transfusion of Nonautologous Serum Albumin into Peripheral Vein, Percutaneous Approach (ICD-10-PCS; 2023-04-20)
PROC: 0T9B70Z Drainage of Bladder with Drainage Device, Via Natural or Artificial Opening (ICD-10-PCS; 2023-04-21)
PROC: 4A133R1 Monitoring of Arterial Saturation, Peripheral, Percutaneous Approach (ICD-10-PCS; 2023-04-25)
PROC: 06HY33Z Insertion of Infusion Device into Lower Vein, Percutaneous Approach (ICD-10-PCS; principal; 2023-04-29)
PROC: 03HY32Z Insertion of Monitoring Device into Upper Artery, Percutaneous Approach (ICD-10-PCS; 2023-04-29)
PROC: 4A133B1 Monitoring of Arterial Pressure, Peripheral, Percutaneous Approach (ICD-10-PCS; 2023-04-29)
PROC: 4A133J1 Monitoring of Arterial Pulse, Peripheral, Percutaneous Approach (ICD-10-PCS; 2023-04-29)
PROC: 5A12012 Performance of Cardiac Output, Single, Manual (ICD-10-PCS; 2023-04-29)
PROC: 5A1955Z Respiratory Ventilation, Greater than 96 Consecutive Hours (ICD-10-PCS; 2023-04-29)
PROC: 3E033XZ Introduction of Vasopressor into Peripheral Vein, Percutaneous Approach (ICD-10-PCS; 2023-04-29)
PROC: 0BH17EZ Insertion of Endotracheal Airway into Trachea, Via Natural or Artificial Opening (ICD-10-PCS; 2023-04-29)
PROC: 30233N1 Transfusion of Nonautologous Red Blood Cells into Peripheral Vein, Percutaneous Approach (ICD-10-PCS; 2023-05-02)
PROC: 5A09457 Assistance with Respiratory Ventilation, 24-96 Consecutive Hours, Continuous Positive Airway Pressure (ICD-10-PCS; 2023-05-05)
PROC: 0DB58ZX Excision of Esophagus, Via Natural or Artificial Opening Endoscopic, Diagnostic (ICD-10-PCS; 2023-06-05)
PROC: 06H03DZ Insertion of Intraluminal Device into Inferior Vena Cava, Percutaneous Approach (ICD-10-PCS; 2023-06-10)
DX: E11.10 Type 2 diabetes mellitus with ketoacidosis without coma (principal); A41.51 Sepsis due to Escherichia coli [E. coli]; G93.41 Metabolic encephalopathy; I46.9 Cardiac arrest, cause unspecified; R57.8 Other shock; J80 Acute respiratory distress syndrome; K72.00 Acute and subacute hepatic failure without coma; N17.0 Acute kidney failure with tubular necrosis; E87.1 Hypo-osmolality and hyponatremia; N13.6 Pyonephrosis; E87.3 Alkalosis; H44.001 Unspecified purulent endophthalmitis, right eye; I82.413 Acute embolism and thrombosis of femoral vein, bilateral; I82.431 Acute embolism and thrombosis of right popliteal vein; D62 Acute posthemorrhagic anemia; E87.0 Hyperosmolality and hypernatremia; L03.213 Periorbital cellulitis; J90 Pleural effusion, not elsewhere classified; K92.1 Melena; Z66 Do not resuscitate; Z51.5 Encounter for palliative care; F41.9 Anxiety disorder, unspecified; F31.9 Bipolar disorder, unspecified; E86.0 Dehydration; E87.6 Hypokalemia; E83.39 Other disorders of phosphorus metabolism; B96.20 Unspecified Escherichia coli [E. coli] as the cause of diseases classified elsewhere; D69.6 Thrombocytopenia, unspecified; R53.1 Weakness; R19.7 Diarrhea, unspecified; R33.9 Retention of urine, unspecified; F31.70 Bipolar disorder, currently in remission, most recent episode unspecified; N18.9 Chronic kidney disease, unspecified; E11.22 Type 2 diabetes mellitus with diabetic chronic kidney disease; I12.9 Hypertensive chronic kidney disease with stage 1 through stage 4 chronic kidney disease, or unspecified chronic kidney disease; R60.1 Generalized edema; R13.12 Dysphagia, oropharyngeal phase; K80.20 Calculus of gallbladder without cholecystitis without obstruction; R53.81 Other malaise; Z91.148 Patient's other noncompliance with medication regimen for other reason; Z90.710 Acquired absence of both cervix and uterus; Z88.0 Allergy status to penicillin; Z11.52 Encounter for screening for COVID-19
CPT/HCPCS: 36415; 36416; 36430; 36600; 37191; 70482; 71045; 71275; 74018; 74174; 74230; 76770; 80048; 80053; 80074; 80202; 80306; 80307; 80400; 81001; 82010; 82274; 82550; 82565; 82805; 83036; 83605; 83690; 83735; 83880; 84100; 84145; 84484; 85025; 85046; 85610; 85730; 86140; 86850; 86900; 86901; 87040; 87070; 87077; 87086; 87102; 87149; 87186; 87205; 87206; 87389; 88305; 88312; 88313; 93005; 93010; 93306; 93970; 94002; 94003; 94640; 94660; 94667; 94668; 96361; 96365; 96375; C1769; C1880; C1894; C9113; J0171; J0289; J0692; J0696; J0834; J0878; J1250; J1335; J1644; J1650; J1720; J1815; J1940; J2001; J2185; J2250; J2405; J2704; J3010; J3370; J3370-JW; J3475; J3480; J3490; J7030; J7042; J7050; J7070; J7120; J7620; P9016; P9047; Q0167; Q9967; S0028; U0002

== ENCOUNTER 2023-06-18 11:42 | Observation (INO) | payer OTHER, SELFPAY ==
[2023-06-18 21:44] VITALS: BMI 24.0
[2023-06-18 21:55] LABS: #Eosinphils 0.1 thou/uL (0.0-0.7); #Monocytes 0.3 thou/uL (0.11-0.59); #Neutrophils 2.1 thou/uL (1.40-6.50); %Basophils 0.5 % (0.0-1.0); %Eosinophils 1.2 % (0.0-10.0); %Lymphocytes 39.5 % (21.0-51.0); %Monocytes 6.5 % (0.0-10.0); %Neutrophils 51.3 % (42.0-75.0); Hematocrit 26.2 % (36.0-47.0); Hemoglobin 8.8 g/dL (12.0-16.0); Mean Corpuscular HGB CONC 33.6 g/dL (32.0-36.0); Mean Corpuscular Hemoglobin 31.5 pg (27.0-31.0); Mean Corpuscular Volume 93.9 fl (78.0-98.0); Platelet Count 208 10x3/uL (130-400); RBC Distribution Width 15.9 % (11.5-14.5); Red Blood Cell (RBC) Count 2.79 mill/uL (4.20-5.40)
[2023-06-18 22:35] LABS: Anion Gap 9 mmol/L (10-20); BUN (Urea Nitrogen) 12 mg/dL (9.8-20.1); Calc. Creatinine Clearance 96 mL/min (70-130); Carbon Dioxide 28 mmol/L (22-29); Chloride 105 mmol/L (98-107); Estimated GFR 106; Glucose 185 mg/dL (70-105); Potassium 3.5 mmol/L (3.5-5.1); Sodium 138 mmol/L (136-145)
[2023-06-18] MEDS ORDERED: HumaLOG 300 UNITS/3 ML VIAL SC PRN (23:38)
[2023-06-18] MEDS ORDERED: Glucagon 1 MG/ML KIT IM PRN (23:38)
[2023-06-18] MEDS ORDERED: Dextrose 50% Abboject 50 ML SYRINGE SLOW IVP PRN (23:38)
[2023-06-18] MEDS ORDERED: Ondansetron ODT 4 MG TAB PO PRN (23:38)
[2023-06-18] MEDS ORDERED: Dextrose 5% in Water 1,000 ML IV PRN (23:38)
[2023-06-18] MEDS ORDERED: Acetaminophen 650 MG Suppository PR PRN (23:38)
[2023-06-18] MEDS ORDERED: Ondansetron PF 4 MG/2 ML Vial IVP PRN (23:38)
[2023-06-19] MEDS ORDERED: Simethicone Chewable 80 MG TAB PO PRN (00:23)
[2023-06-19] MEDS ORDERED: Sodium Chloride 0.9% 500 ML IV SCH (04:30)
[2023-06-19] MEDS: Acetaminophen 325 MG TAB PO PRN ×2 (04:55→22:01)
[2023-06-19 06:26] LABS: #Eosinphils 0.1 thou/uL (0.0-0.7); #Monocytes 0.3 thou/uL (0.11-0.59); #Neutrophils 1.4 thou/uL (1.40-6.50); %Basophils 0.6 % (0.0-1.0); %Lymphocytes 49.1 % (21.0-51.0); %Monocytes 8.7 % (0.0-10.0); %Neutrophils 39.3 % (42.0-75.0); Hematocrit 24.4 % (36.0-47.0); Hemoglobin 8.2 g/dL (12.0-16.0); Mean Corpuscular HGB CONC 33.6 g/dL (32.0-36.0); Mean Corpuscular Hemoglobin 31.8 pg (27.0-31.0); Mean Corpuscular Volume 94.6 fl (78.0-98.0); Mean Platelet Volume 9.3 fL (7.4-10.4); Platelet Count 204 10x3/uL (130-400); Red Blood Cell (RBC) Count 2.58 mill/uL (4.20-5.40); White Blood Cell (WBC) Count 3.4 10x3/uL (4.8-10.8)
[2023-06-19 06:53] LABS: Anion Gap 7 mmol/L (10-20); BUN (Urea Nitrogen) 11 mg/dL (9.8-20.1); Calc. Creatinine Clearance 97 mL/min (70-130); Carbon Dioxide 25 mmol/L (22-29); Chloride 108 mmol/L (98-107); Estimated GFR 107; Glucose 161 mg/dL (70-105); Magnesium 1.7 mg/dL (1.6-2.6); Potassium 3.7 mmol/L (3.5-5.1); Sodium 136 mmol/L (136-145)
[2023-06-19 06:56] LABS: Calcium 6.9 mg/dL (7.8-10.44); Critical Call Chemistry NUR.JL10@0656
[2023-06-19] MEDS ORDERED: CALCIUM GLUC 1 GM/NS 50 ML 1 GM in Premix 1 BAG IVPB SCH (07:45)
[2023-06-19] MEDS: metFORMIN 500 MG TAB PO SCH (09:43)
[2023-06-19] MEDS: Escitalopram Oxalate 20 mg Tablet PO SCH (09:43)
[2023-06-19] MEDS: Apixaban 5 MG TAB PO SCH ×2 (09:43→21:58)
[2023-06-19] MEDS: HumaLOG 300 UNITS/3 ML VIAL SC PRN (12:59)
[2023-06-19] MEDS: Bacitracin-Polymyxin B Opth Oint 3.5 GM TUBE R EYE SCH ×2 (15:08→21:59)
[2023-06-19] MEDS: OLANZapine 5 MG TAB PO SCH (21:58)
[2023-06-19] MEDS: Mirtazapine 15 MG TAB PO SCH (21:58)
[2023-06-20] MEDS: metFORMIN 500 MG TAB PO SCH (08:03)
[2023-06-20] MEDS: Escitalopram Oxalate 20 mg Tablet PO SCH (08:03)
[2023-06-20] MEDS: Apixaban 5 MG TAB PO SCH ×2 (08:03→17:32)
[2023-06-20] MEDS: Bacitracin-Polymyxin B Opth Oint 3.5 GM TUBE R EYE SCH (08:09)
[2023-06-20] MEDS: HumaLOG 300 UNITS/3 ML VIAL SC PRN (08:09)
[2023-06-20 08:14] VITALS: TEMP 98.5
[2023-06-20] MEDS ORDERED: Calcium Gluconate 100 MG/ML 10 ML IVPB SCH (10:45)
[2023-06-20 10:54] LABS: #Eosinphils 0.1 thou/uL (0.0-0.7); #Monocytes 0.5 thou/uL (0.11-0.59); %Basophils 0.4 % (0.0-1.0); %Eosinophils 1.8 % (0.0-10.0); %Lymphocytes 42.1 % (21.0-51.0); %Monocytes 10.6 % (0.0-10.0); %Neutrophils 44.7 % (42.0-75.0); Hemoglobin 8.2 g/dL (12.0-16.0); Mean Corpuscular HGB CONC 34.2 g/dL (32.0-36.0); Mean Corpuscular Hemoglobin 31.7 pg (27.0-31.0); Mean Corpuscular Volume 92.7 fl (78.0-98.0); Mean Platelet Volume 9.2 fL (7.4-10.4); Platelet Count 195 10x3/uL (130-400); RBC Distribution Width 15.6 % (11.5-14.5); Red Blood Cell (RBC) Count 2.59 mill/uL (4.20-5.40); White Blood Cell (WBC) Count 4.5 10x3/uL (4.8-10.8)
[2023-06-20] MEDS ORDERED: Calcium Gluconate 9.2 MEQ in Sodium Chloride 0.9% 100 ML IVPB SCH (11:15)
[2023-06-20 11:21] LABS: Anion Gap 8 mmol/L (10-20); BUN (Urea Nitrogen) 12 mg/dL (9.8-20.1); Calc. Creatinine Clearance 99 mL/min (70-130); Carbon Dioxide 27 mmol/L (22-29); Chloride 105 mmol/L (98-107); Estimated GFR 107; Glucose 119 mg/dL (70-105); Potassium 3.2 mmol/L (3.5-5.1); Sodium 137 mmol/L (136-145)
[2023-06-20] MEDS: Acetaminophen 325 MG TAB PO PRN ×2 (12:07→17:32)
[2023-06-20 16:21] VITALS: BP 105/67
[2023-06-20] MEDS: OLANZapine 5 MG TAB PO SCH (17:32)
[2023-06-20] MEDS: Mirtazapine 15 MG TAB PO SCH (17:32)
[2023-06-20] MEDS ORDERED: Calcium Carbonate + Vit D 250 MG TAB PO SCH (21:00)
== END 2023-06-20 18:18 | disposition home or self-care (01) ==
LOC: T4-A 11:42 → INTOOBSV 11:42
PROVIDERS: ADMIT Internal Medicine; ATTEND Hospitalist
DX: E11.9 Type 2 diabetes mellitus without complications (principal); F32.A Depression, unspecified; H44.001 Unspecified purulent endophthalmitis, right eye; Z79.01 Long term (current) use of anticoagulants; Z86.718 Personal history of other venous thrombosis and embolism; Z86.74 Personal history of sudden cardiac arrest; Z87.19 Personal history of other diseases of the digestive system; Z79.84 Long term (current) use of oral hypoglycemic drugs; Z79.899 Other long term (current) drug therapy; Z88.0 Allergy status to penicillin
CPT/HCPCS: 36415; 36416; 80048; 83605; 83735; 84145; 85025; 96374; 96376; G0378; J0612; J0613; J1815; J3490; J7030

== ENCOUNTER 2023-06-23 18:37 | Emergency (ER) | payer OTHER, SELFPAY ==
[2023-06-23] MEDS ORDERED: Acetaminophen 500 MG TAB ONE (20:33)
== END 2023-06-23 22:28 | disposition home or self-care (01) ==
LOC: ERS 18:37
DX: S70.02XA Contusion of left hip, initial encounter (principal); E11.9 Type 2 diabetes mellitus without complications; I10 Essential (primary) hypertension; W06.XXXA Fall from bed, initial encounter

== ENCOUNTER 2023-07-08 17:23 | Inpatient (IN) | payer OTHER, SELFPAY ==
[2023-07-08 18:33] LABS: Influenza A by NAA Not Detected (NotDetected); Influenza B by NAA Not Detected (NotDetected); SARS-CoV-2 NAA Rapid Test Not Detected (NotDetected)
[2023-07-08 18:46] LABS: Hematocrit 28.2 % (36.0-47.0); Hemoglobin 9.4 g/dL (12.0-16.0); Manual Diff?? YES; Mean Corpuscular HGB CONC 33.3 g/dL (32.0-36.0); Mean Corpuscular Hemoglobin 32.4 pg (27.0-31.0); Mean Corpuscular Volume 97.2 fl (78.0-98.0); Mean Platelet Volume 9.1 fL (7.4-10.4); Platelet Count 308 10x3/uL (130-400); RBC Distribution Width 17.3 % (11.5-14.5); White Blood Cell (WBC) Count 6.9 10x3/uL (4.8-10.8)
[2023-07-08 18:51] LABS: Delete Auto Diff?? YES
[2023-07-08 19:08] LABS: Troponin I Less than 0.010 ng/mL (< 0.028)
[2023-07-08 19:29] LABS: Anisocytosis SLIGHT = 6-15 cells HPF (0-5); Band 34 % (5-11); Large Platelets 0.9 % (0-5); Lymphocytes 3 % (21-51); Monocytes 3 % (0-10); Neutrophil 61 % (42-75); Ovalocytes SLIGHT = 2-5 cells HPF (0-1); Polychromasia SLIGHT = 2-3 cells HPF (0-2); Total Cell Count 113; Toxic Granulation SLIGHT
[2023-07-08 19:30] LABS: CellaVision Operator ID LAB.MJL; Platelet Adequacy Comment Platelets Normal
[2023-07-08 19:44] LABS: ALT (SGPT) Less than 7 U/L (8-55); AST (SGOT) 10 U/L (5-34); Albumin 1.9 g/dL (3.5-5.0); Alkaline Phosphatase 87 U/L (40-110); Anion Gap 15 mmol/L (10-20); BUN (Urea Nitrogen) 17 mg/dL (9.8-20.1); Bilirubin, Total 0.6 mg/dL (0.2-1.2); Calc. Creatinine Clearance 0 mL/min (70-130); Calcium 7.5 mg/dL (7.8-10.44); Carbon Dioxide 22 mmol/L (22-29); Chloride 104 mmol/L (98-107); Estimated GFR 103; Globulin 3.8 g/dL (2.4-3.5); Glucose 150 mg/dL (70-105); Magnesium 1.7 mg/dL (1.6-2.6); Potassium 3.3 mmol/L (3.5-5.1); Protein, Total 5.7 g/dL (6.0-8.3); Sodium 138 mmol/L (136-145)
[2023-07-08] MEDS ORDERED: Potassium Chloride 20 MEQ TAB ONE (21:59)
[2023-07-08] MEDS ORDERED: Potassium Bicarbonate/Cit Ac 20 MEQ TAB ONE (22:08)
[2023-07-09] MEDS ORDERED: Ipratropium/Albuterol 3 ML NEB NEB PRN (00:06)
[2023-07-09] MEDS ORDERED: Electrolyte Replacement Protocol FS SCH (00:15)
[2023-07-09] MEDS: Midodrine HCl 5 MG TAB PO SCH ×2 (00:47→08:31)
[2023-07-09] MEDS: Apixaban 5 MG TAB PO SCH ×2 (03:22→08:31)
[2023-07-09 05:03] LABS: Hematocrit 25.9 % (36.0-47.0); Hemoglobin 8.7 g/dL (12.0-16.0); Manual Diff?? YES; Mean Corpuscular HGB CONC 33.6 g/dL (32.0-36.0); Mean Corpuscular Hemoglobin 32.3 pg (27.0-31.0); Mean Corpuscular Volume 96.3 fl (78.0-98.0); Mean Platelet Volume 9.1 fL (7.4-10.4); Platelet Count 347 10x3/uL (130-400); RBC Distribution Width 17.2 % (11.5-14.5); Red Blood Cell (RBC) Count 2.69 mill/uL (4.20-5.40); White Blood Cell (WBC) Count 11.4 10x3/uL (4.8-10.8)
[2023-07-09 05:08] LABS: Delete Auto Diff?? YES
[2023-07-09 05:26] LABS: Anion Gap 18 mmol/L (10-20); BUN (Urea Nitrogen) 17 mg/dL (9.8-20.1); Calc. Creatinine Clearance 0 mL/min (70-130); Calcium 7.3 mg/dL (7.8-10.44); Carbon Dioxide 19 mmol/L (22-29); Chloride 104 mmol/L (98-107); Estimated GFR 103; Glucose 149 mg/dL (70-105); Potassium 4.1 mmol/L (3.5-5.1); Sodium 137 mmol/L (136-145)
[2023-07-09] MEDS: Furosemide 20 MG (2 mL) VIAL SLOW IVP SCH ×2 (05:37→16:37)
[2023-07-09 05:44] LABS: Anisocytosis MODERATE=16-30 cells HPF (0-5); Band 25 % (5-11); Burr Cells SLIGHT = 2-5 cells HPF (0-1); CellaVision Operator ID lab.sh2; Eosinophils 1 % (0-10); Lymphocytes 2 % (21-51); Macrocytosis SLIGHT = 6-15 cells HPF (0-5); Monocytes 4 % (0-10); Neutrophil 68 % (42-75); Ovalocytes SLIGHT = 2-5 cells HPF (0-1); Platelet Adequacy Comment Platelets Normal; Polychromasia SLIGHT = 2-3 cells HPF (0-2); Smudge Cells 22.8 %; Total Cell Count 101
[2023-07-09] MEDS ORDERED: Apixaban 5 MG TAB ONE (07:46)
[2023-07-09] MEDS ORDERED: Famotidine 20 MG TAB ONE (07:46)
[2023-07-09] MEDS: Escitalopram Oxalate 20 mg Tablet PO SCH (08:31)
[2023-07-09] MEDS: Famotidine 20 MG TAB PO SCH (08:31)
[2023-07-09] MEDS: metFORMIN 500 MG TAB PO SCH (08:31)
[2023-07-09] MEDS ORDERED: Iopamidol-370 76% 500 ML MDV (1 ML CHARGE) ONE (11:43)
[2023-07-09] MEDS ORDERED: NOREPINEPHRINE 8 MG/250 ML-D5W 250 ML IVPB SCH (15:15)
[2023-07-09] MEDS ORDERED: NOREPINEPHRINE 8 MG/250 ML-D5W 250 ML ONE (15:23)
[2023-07-09] MEDS ORDERED: Furosemide 20 MG (2 mL) VIAL ONE (16:19)
[2023-07-09] MEDS: Albumin 25% 25 GM (100 mL) BOT IVPB SCH (16:43)
[2023-07-09] MEDS: OLANZapine 5 MG TAB PO SCH (22:25)
[2023-07-09] MEDS: Mirtazapine 15 MG TAB PO SCH (22:26)
[2023-07-10] MEDS: Albumin 25% 25 GM (100 mL) BOT IVPB SCH ×2 (00:15→21:14)
[2023-07-10 05:33] LABS: Bilirubin Negative (Negative); Blood, Urine 1+ (Negative); CAUTI Indications for Culture Alt mental st,lethar; Clarity Turbid (Clear); Glucose, Urine (Dipstick) Normal (Negative); Ketone, Urine Trace mg/dL (Negative); Leukocyte 500 Leu/uL (Negative); Nitrite Negative (Negative); Protein, Urine (Dipstick) Negative (Neg-Trace); RBC/HPF 0-3 HPF (0-3); Specific Gravity, Urine 1.014 (1.002-1.036); Squamous Epithelial 0-3 HPF (0-3); Urobilinogen Normal mg/dL (Less than 2); WBC/HPF Greater than 50 HPF (0-3); pH, Urine 5.5 (5.0-9.0)
[2023-07-10 05:38] LABS: Bacteria/HPF 1+ HPF (None Seen)
[2023-07-10 05:39] LABS: Urine Culture Reflex Yes Yes
[2023-07-10 06:29] LABS: Hematocrit 21.2 % (36.0-47.0); Hemoglobin 6.9 g/dL (12.0-16.0); Manual Diff?? YES; Mean Corpuscular HGB CONC 32.5 g/dL (32.0-36.0); Mean Corpuscular Hemoglobin 32.7 pg (27.0-31.0); Mean Corpuscular Volume 100.5 fl (78.0-98.0); Platelet Count 258 10x3/uL (130-400); RBC Distribution Width 17.9 % (11.5-14.5); Red Blood Cell (RBC) Count 2.11 mill/uL (4.20-5.40); White Blood Cell (WBC) Count 8.1 10x3/uL (4.8-10.8)
[2023-07-10 06:34] LABS: Delete Auto Diff?? YES
[2023-07-10 07:02] LABS: ALT (SGPT) Less than 7 U/L (8-55); AST (SGOT) 4 U/L (5-34); Albumin 2.7 g/dL (3.5-5.0); Alkaline Phosphatase 69 U/L (40-110); Anion Gap 17 mmol/L (10-20); BUN (Urea Nitrogen) 17 mg/dL (9.8-20.1); Bilirubin, Total 0.7 mg/dL (0.2-1.2); Calc. Creatinine Clearance 75 mL/min (70-130); Calcium 7.4 mg/dL (7.8-10.44); Carbon Dioxide 23 mmol/L (22-29); Chloride 103 mmol/L (98-107); Estimated GFR 99; Globulin 2.5 g/dL (2.4-3.5); Glucose 168 mg/dL (70-105); Potassium 3.6 mmol/L (3.5-5.1); Protein, Total 5.2 g/dL (6.0-8.3); Sodium 139 mmol/L (136-145)
[2023-07-10 07:04] LABS: Band 21 % (5-11); CellaVision Operator ID LAB.CLH1; Hypochromia SLIGHT = 6-15 cells HPF (0-5); Lymphocytes 19 % (21-51); Macrocytosis SLIGHT = 6-15 cells HPF (0-5); Metamyelocyte 1 % (0-0); Monocytes 2 % (0-10); Neutrophil 57 % (42-75); Platelet Adequacy Comment Platelets Normal; Polychromasia SLIGHT = 2-3 cells HPF (0-2); Total Cell Count 104
[2023-07-10 10:13] LABS: PTT 45.3 sec (22.9-36.1); Prothrombin Time 23.1 sec (12.0-14.7)
[2023-07-10] MEDS: Meropenem 1 GM in Sodium Chloride 0.9% 100 ML IVPB SCH (14:30)
[2023-07-11 17:57] LABS: Hematocrit 29.5 % (36.0-47.0); Manual Diff?? YES; Mean Corpuscular HGB CONC 34.9 g/dL (32.0-36.0); Mean Corpuscular Volume 91.6 fl (78.0-98.0); Mean Platelet Volume 8.9 fL (7.4-10.4); Platelet Count 252 10x3/uL (130-400); RBC Distribution Width 17.2 % (11.5-14.5); Red Blood Cell (RBC) Count 3.22 mill/uL (4.20-5.40); White Blood Cell (WBC) Count 8.5 10x3/uL (4.8-10.8)
[2023-07-11 18:05] LABS: Delete Auto Diff?? YES; Hemoglobin 10.3 g/dL (12.0-16.0)
[2023-07-11 18:32] LABS: Band 32 % (5-11); CellaVision Operator ID LAB.GE; Eosinophils 1 % (0-10); Lymphocytes 22 % (21-51); Metamyelocyte 2 % (0-0); Monocytes 3 % (0-10); Myelocyte 1 % (0-0); Neutrophil 39 % (42-75); Platelet Adequacy Comment Platelets Normal; Polychromasia SLIGHT = 2-3 cells HPF (0-2); Total Cell Count 100; Vacuoles SLIGHT
[2023-07-11 18:35] LABS: ALT (SGPT) Less than 7 U/L (8-55); AST (SGOT) 4 U/L (5-34); Albumin 2.7 g/dL (3.5-5.0); Alkaline Phosphatase 65 U/L (40-110); Anion Gap 15 mmol/L (10-20); BUN (Urea Nitrogen) 8 mg/dL (9.8-20.1); Bilirubin, Total 1.1 mg/dL (0.2-1.2); Calc. Creatinine Clearance 81 mL/min (70-130); Calcium 7.4 mg/dL (7.8-10.44); Carbon Dioxide 33 mmol/L (22-29); Chloride 96 mmol/L (98-107); Estimated GFR 103; Globulin 2.3 g/dL (2.4-3.5); Glucose 212 mg/dL (70-105)
[2023-07-11 18:41] LABS: Potassium 2.3 mmol/L (3.5-5.1); Sodium 142 mmol/L (136-145)
[2023-07-11 19:43] LABS: Magnesium 1.3 mg/dL (1.6-2.6)
[2023-07-11] MEDS: Potassium Chloride 20 MEQ in Premix 1 BAG IVPB SCH (19:52)
[2023-07-11] MEDS: Pantoprazole 40 MG VIAL IVP SCH (19:53)
[2023-07-11] MEDS: Potassium Chloride 20 MEQ TAB PO SCH (21:08)
[2023-07-11 21:42] LABS: Hemoglobin 10.9 g/dL (12.0-16.0); Manual Diff?? YES; Mean Corpuscular HGB CONC 34.1 g/dL (32.0-36.0); Mean Corpuscular Volume 93.8 fl (78.0-98.0); Mean Platelet Volume 8.5 fL (7.4-10.4); Platelet Count 260 10x3/uL (130-400); RBC Distribution Width 17.5 % (11.5-14.5); Red Blood Cell (RBC) Count 3.41 mill/uL (4.20-5.40); White Blood Cell (WBC) Count 10.3 10x3/uL (4.8-10.8)
[2023-07-11] MEDS: Magnesium Sulfate In Water 4 GM in Premix 1 BAG IVPB SCH (21:56)
[2023-07-11] MEDS: Acetaminophen 325 MG TAB PO PRN (21:59)
[2023-07-11 22:22] LABS: Delete Auto Diff?? YES
[2023-07-11 22:58] LABS: Anisocytosis SLIGHT = 6-15 cells HPF (0-5); Band 29 % (5-11); CellaVision Operator ID LAB.JMM; Hypochromia SLIGHT = 6-15 cells HPF (0-5); Lymphocytes 13 % (21-51); Macrocytosis SLIGHT = 6-15 cells HPF (0-5); Monocytes 2 % (0-10); Neutrophil 56 % (42-75); Platelet Adequacy Comment Platelets Normal; Polychromasia SLIGHT = 2-3 cells HPF (0-2); Smudge Cells 18.8 %; Total Cell Count 101
[2023-07-12 01:13] LABS: Hemoglobin 9.5 g/dL (12.0-16.0); Manual Diff?? YES; Mean Corpuscular HGB CONC 33.9 g/dL (32.0-36.0); Mean Corpuscular Hemoglobin 31.9 pg (27.0-31.0); Mean Platelet Volume 8.7 fL (7.4-10.4); Platelet Count 225 10x3/uL (130-400); RBC Distribution Width 17.4 % (11.5-14.5); Red Blood Cell (RBC) Count 2.98 mill/uL (4.20-5.40); White Blood Cell (WBC) Count 7.9 10x3/uL (4.8-10.8)
[2023-07-12 01:17] LABS: Delete Auto Diff?? YES
[2023-07-12 01:47] LABS: Anisocytosis SLIGHT = 6-15 cells HPF (0-5); Band 17 % (5-11); CellaVision Operator ID LAB.JMM; Hypochromia SLIGHT = 6-15 cells HPF (0-5); Lymphocytes 30 % (21-51); Macrocytosis SLIGHT = 6-15 cells HPF (0-5); Monocytes 3 % (0-10); Neutrophil 50 % (42-75); Platelet Adequacy Comment Platelets Normal; Polychromasia SLIGHT = 2-3 cells HPF (0-2); RBC Morphology 2; Smudge Cells 26.7 %; Total Cell Count 60
[2023-07-12 06:40] LABS: ALT (SGPT) Less than 7 U/L (8-55); AST (SGOT) 6 U/L (5-34); Albumin 2.3 g/dL (3.5-5.0); Alkaline Phosphatase 63 U/L (40-110); BUN (Urea Nitrogen) 8 mg/dL (9.8-20.1); Bilirubin, Total 0.8 mg/dL (0.2-1.2); Calc. Creatinine Clearance 82 mL/min (70-130); Calcium 7.2 mg/dL (7.8-10.44); Estimated GFR 103; Globulin 2.3 g/dL (2.4-3.5); Glucose 178 mg/dL (70-105); Protein, Total 4.6 g/dL (6.0-8.3)
[2023-07-12 06:49] LABS: Anion Gap 15 mmol/L (10-20); Carbon Dioxide 30 mmol/L (22-29); Chloride 98 mmol/L (98-107); Potassium 2.9 mmol/L (3.5-5.1); Sodium 140 mmol/L (136-145)
[2023-07-12 07:42] LABS: Hematocrit 28.4 % (36.0-47.0); Hemoglobin 9.8 g/dL (12.0-16.0); Manual Diff?? YES; Mean Corpuscular HGB CONC 34.5 g/dL (32.0-36.0); Mean Corpuscular Hemoglobin 31.9 pg (27.0-31.0); Mean Corpuscular Volume 92.5 fl (78.0-98.0); Platelet Count 228 10x3/uL (130-400); RBC Distribution Width 17.2 % (11.5-14.5); Red Blood Cell (RBC) Count 3.07 mill/uL (4.20-5.40); White Blood Cell (WBC) Count 6.3 10x3/uL (4.8-10.8)
[2023-07-12 08:18] LABS: Delete Auto Diff?? YES
[2023-07-12 08:28] LABS: #Monocytes 0.4 thou/uL (0.11-0.59); #Neutrophils 2.8 thou/uL (1.40-6.50); %Basophils 0.2 % (0.0-1.0); %Eosinophils 0.5 % (0.0-10.0); %Lymphocytes 41.7 % (21.0-51.0); %Neutrophils 49.4 % (42.0-75.0); Hematocrit 26.9 % (36.0-47.0); Hemoglobin 9.3 g/dL (12.0-16.0); Mean Corpuscular HGB CONC 34.6 g/dL (32.0-36.0); Mean Corpuscular Hemoglobin 32.1 pg (27.0-31.0); Mean Corpuscular Volume 92.8 fl (78.0-98.0); Mean Platelet Volume 8.6 fL (7.4-10.4); Platelet Count 187 10x3/uL (130-400); RBC Distribution Width 17.3 % (11.5-14.5); White Blood Cell (WBC) Count 5.8 10x3/uL (4.8-10.8)
[2023-07-12] MEDS: Potassium Chloride 20 MEQ in Premix 1 BAG IVPB SCH (09:23)
[2023-07-12 14:05] LABS: Anisocytosis SLIGHT = 6-15 cells HPF (0-5); Band 30 % (5-11); CellaVision Operator ID LAB.KB; Eosinophils 1 % (0-10); Lymphocytes 25 % (21-51); Monocytes 2 % (0-10); Neutrophil 43 % (42-75); Ovalocytes SLIGHT = 2-5 cells HPF (0-1); Platelet Adequacy Comment Platelets Normal; Polychromasia SLIGHT = 2-3 cells HPF (0-2); Smudge Cells 50.5 %; Total Cell Count 101
[2023-07-13 08:29] LABS: Anion Gap 8 mmol/L (10-20); BUN (Urea Nitrogen) 7 mg/dL (9.8-20.1); Calc. Creatinine Clearance 87 mL/min (70-130); Calcium 7.3 mg/dL (7.8-10.44); Carbon Dioxide 33 mmol/L (22-29); Chloride 100 mmol/L (98-107); Estimated GFR 107; Glucose 150 mg/dL (70-105); Magnesium 1.9 mg/dL (1.6-2.6); Potassium 3.2 mmol/L (3.5-5.1); Sodium 138 mmol/L (136-145)
[2023-07-13] MEDS: Potassium Chloride 20 MEQ TAB PO SCH (10:10)
[2023-07-13] MEDS: Magnesium 2 GM/50 ML(in water) 2 GM in Premix 1 BAG IVPB SCH (10:11)
[2023-07-14 09:25] LABS: #Eosinphils 0.1 thou/uL (0.0-0.7); #Monocytes 0.3 thou/uL (0.11-0.59); #Neutrophils 2.6 thou/uL (1.40-6.50); %Basophils 0.2 % (0.0-1.0); %Eosinophils 1.6 % (0.0-10.0); %Monocytes 6.1 % (0.0-10.0); %Neutrophils 51.7 % (42.0-75.0); Hematocrit 28.1 % (36.0-47.0); Hemoglobin 9.4 g/dL (12.0-16.0); Mean Corpuscular HGB CONC 33.5 g/dL (32.0-36.0); Mean Corpuscular Volume 95.6 fl (78.0-98.0); Mean Platelet Volume 8.7 fL (7.4-10.4); Platelet Count 156 10x3/uL (130-400); RBC Distribution Width 16.7 % (11.5-14.5); Red Blood Cell (RBC) Count 2.94 mill/uL (4.20-5.40); White Blood Cell (WBC) Count 5.1 10x3/uL (4.8-10.8)
[2023-07-14 09:58] LABS: Anion Gap 10 mmol/L (10-20); BUN (Urea Nitrogen) 8 mg/dL (9.8-20.1); Calc. Creatinine Clearance 87 mL/min (70-130); Calcium 7.5 mg/dL (7.8-10.44); Carbon Dioxide 29 mmol/L (22-29); Chloride 103 mmol/L (98-107); Estimated GFR 107; Glucose 134 mg/dL (70-105); Potassium 3.6 mmol/L (3.5-5.1); Sodium 138 mmol/L (136-145)
[2023-07-14] MEDS: Tamsulosin HCl 0.4 MG CAP PO SCH (23:15)
[2023-07-15] MEDS: Tamsulosin HCl 0.4 MG CAP PO SCH (09:06)
[2023-07-16 06:12] LABS: ALT (SGPT) Less than 7 U/L (8-55); AST (SGOT) 8 U/L (5-34); Alkaline Phosphatase 68 U/L (40-110); Anion Gap 7 mmol/L (10-20); BUN (Urea Nitrogen) 10 mg/dL (9.8-20.1); Bilirubin, Total 0.6 mg/dL (0.2-1.2); Calc. Creatinine Clearance 85 mL/min (70-130); Calcium 7.3 mg/dL (7.8-10.44); Carbon Dioxide 28 mmol/L (22-29); Chloride 103 mmol/L (98-107); Estimated GFR 107; Globulin 2.9 g/dL (2.4-3.5); Glucose 106 mg/dL (70-105); Magnesium 1.8 mg/dL (1.6-2.6); Phosphorus 1.6 mg/dL (2.3-4.7); Potassium 3.3 mmol/L (3.5-5.1); Protein, Total 4.9 g/dL (6.0-8.3); Sodium 135 mmol/L (136-145)
[2023-07-16] MEDS: Magnesium 2 GM/50 ML(in water) 2 GM in Premix 1 BAG IVPB SCH (10:29)
[2023-07-16] MEDS: PHOS-NAK 1 PKT PACK PO SCH (10:36)
[2023-07-16 13:49] LABS: #Monocytes 0.3 thou/uL (0.11-0.59); #Neutrophils 2.6 thou/uL (1.40-6.50); %Basophils 0.4 % (0.0-1.0); %Eosinophils 0.8 % (0.0-10.0); %Lymphocytes 36.8 % (21.0-51.0); %Monocytes 6.3 % (0.0-10.0); %Neutrophils 55.1 % (42.0-75.0); Hematocrit 24.8 % (36.0-47.0); Hemoglobin 8.4 g/dL (12.0-16.0); Mean Corpuscular HGB CONC 33.9 g/dL (32.0-36.0); Mean Corpuscular Hemoglobin 32.3 pg (27.0-31.0); Mean Corpuscular Volume 95.4 fl (78.0-98.0); Mean Platelet Volume 8.8 fL (7.4-10.4); RBC Distribution Width 16.1 % (11.5-14.5); White Blood Cell (WBC) Count 4.7 10x3/uL (4.8-10.8)
[2023-07-16] MEDS: Potassium Chloride 20 MEQ TAB PO SCH (13:51)
[2023-07-16 13:52] LABS: Platelet Count 118 10x3/uL (130-400)
[2023-07-16 15:24] VITALS: BMI 20.7
[2023-07-16] MEDS: Acetaminophen 650 MG Suppository PR PRN (18:05)
[2023-07-17 08:14] LABS: #Monocytes 0.4 thou/uL (0.11-0.59); #Neutrophils 2.7 thou/uL (1.40-6.50); %Basophils 0.2 % (0.0-1.0); %Eosinophils 0.8 % (0.0-10.0); %Lymphocytes 34.4 % (21.0-51.0); %Monocytes 7.5 % (0.0-10.0); %Neutrophils 56.7 % (42.0-75.0); Hematocrit 24.7 % (36.0-47.0); Hemoglobin 8.4 g/dL (12.0-16.0); Mean Corpuscular Hemoglobin 32.3 pg (27.0-31.0); Mean Platelet Volume 9.6 fL (7.4-10.4); Platelet Count 118 10x3/uL (130-400); White Blood Cell (WBC) Count 4.8 10x3/uL (4.8-10.8)
[2023-07-17 08:35] LABS: Anion Gap 4 mmol/L (10-20); BUN (Urea Nitrogen) 10 mg/dL (9.8-20.1); Calc. Creatinine Clearance 91 mL/min (70-130); Calcium 7.1 mg/dL (7.8-10.44); Carbon Dioxide 31 mmol/L (22-29); Chloride 104 mmol/L (98-107); Estimated GFR 108; Glucose 112 mg/dL (70-105); Potassium 3.4 mmol/L (3.5-5.1); Sodium 136 mmol/L (136-145)
[2023-07-17] MEDS ORDERED: Potassium Chloride 20 MEQ TAB PO SCH (09:00)
[2023-07-17] MEDS: Potassium Bicarbonate/Cit Ac 20 MEQ TAB PO SCH (21:35)
[2023-07-18 15:27] LABS: #Monocytes 0.1 thou/uL (0.11-0.59); #Neutrophils 2.1 thou/uL (1.40-6.50); %Basophils 0.3 % (0.0-1.0); %Eosinophils 0.9 % (0.0-10.0); %Lymphocytes 29.8 % (21.0-51.0); %Monocytes 4.3 % (0.0-10.0); %Neutrophils 64.1 % (42.0-75.0); Hematocrit 25.1 % (36.0-47.0); Hemoglobin 8.4 g/dL (12.0-16.0); Mean Corpuscular HGB CONC 33.5 g/dL (32.0-36.0); Mean Corpuscular Hemoglobin 31.8 pg (27.0-31.0); Mean Corpuscular Volume 95.1 fl (78.0-98.0); Platelet Count 137 10x3/uL (130-400); Red Blood Cell (RBC) Count 2.64 mill/uL (4.20-5.40); White Blood Cell (WBC) Count 3.3 10x3/uL (4.8-10.8)
[2023-07-18 16:45] LABS: Anion Gap 8 mmol/L (10-20); Carbon Dioxide 28 mmol/L (22-29); Chloride 103 mmol/L (98-107); Potassium 3.3 mmol/L (3.5-5.1); Sodium 136 mmol/L (136-145)
[2023-07-18 16:46] LABS: AST (SGOT) 7 U/L (5-34); Albumin 1.9 g/dL (3.5-5.0); Alkaline Phosphatase 72 U/L (40-110); BUN (Urea Nitrogen) 9 mg/dL (9.8-20.1); Bilirubin, Total 0.5 mg/dL (0.2-1.2); Calc. Creatinine Clearance 98 mL/min (70-130); Calcium 7.1 mg/dL (7.6-10.4); Estimated GFR 110; Glucose 92 mg/dL (70-105); Protein, Total 4.9 g/dL (6.0-8.3)
[2023-07-18 16:47] LABS: ALT (SGPT) Less than 7 U/L (8-55)
[2023-07-19] MEDS: Potassium Bicarbonate/Cit Ac 20 MEQ TAB PO SCH (05:35)
[2023-07-19] MEDS: Mirtazapine 15 MG TAB PO SCH (21:04)
[2023-07-22 06:27] LABS: #Monocytes 0.4 thou/uL (0.11-0.59); #Neutrophils 1.7 thou/uL (1.40-6.50); %Basophils 0.2 % (0.0-1.0); %Lymphocytes 47.9 % (21.0-51.0); %Monocytes 10.2 % (0.0-10.0); %Neutrophils 40.5 % (42.0-75.0); Hematocrit 24.6 % (36.0-47.0); Hemoglobin 8.4 g/dL (12.0-16.0); Mean Corpuscular HGB CONC 34.1 g/dL (32.0-36.0); Mean Corpuscular Hemoglobin 32.1 pg (27.0-31.0); Mean Corpuscular Volume 93.9 fl (78.0-98.0); Mean Platelet Volume 8.9 fL (7.4-10.4); Platelet Count 181 10x3/uL (130-400); RBC Distribution Width 15.8 % (11.5-14.5); Red Blood Cell (RBC) Count 2.62 mill/uL (4.20-5.40); White Blood Cell (WBC) Count 4.1 10x3/uL (4.8-10.8)
[2023-07-22 06:51] LABS: Anion Gap 10 mmol/L (10-20); BUN (Urea Nitrogen) 11 mg/dL (9.8-20.1); Calc. Creatinine Clearance 94 mL/min (70-130); Calcium 7.3 mg/dL (7.8-10.44); Carbon Dioxide 25 mmol/L (22-29); Chloride 103 mmol/L (98-107); Estimated GFR 109; Glucose 106 mg/dL (70-105); Potassium 3.5 mmol/L (3.5-5.1); Sodium 134 mmol/L (136-145)
[2023-07-22] MEDS: Potassium Chloride 20 MEQ TAB PO SCH (08:50)
[2023-07-27 06:30] LABS: Hematocrit 22.3 % (36.0-47.0); Hemoglobin 7.3 g/dL (12.0-16.0); Manual Diff?? YES; Mean Corpuscular HGB CONC 32.7 g/dL (32.0-36.0); Mean Corpuscular Hemoglobin 30.4 pg (27.0-31.0); Mean Corpuscular Volume 92.9 fl (78.0-98.0); Mean Platelet Volume 8.8 fL (7.4-10.4); Platelet Count 199 10x3/uL (130-400); RBC Distribution Width 16.2 % (11.5-14.5); White Blood Cell (WBC) Count 4.6 10x3/uL (4.8-10.8)
[2023-07-27 06:36] LABS: Delete Auto Diff?? YES
[2023-07-27 06:40] LABS: Anion Gap 10 mmol/L (10-20); BUN (Urea Nitrogen) 14 mg/dL (9.8-20.1); Calc. Creatinine Clearance 104 mL/min (70-130); Calcium 7.2 mg/dL (7.8-10.44); Carbon Dioxide 28 mmol/L (22-29); Chloride 105 mmol/L (98-107); Estimated GFR 112; Glucose 145 mg/dL (70-105); Potassium 3.2 mmol/L (3.5-5.1); Sodium 140 mmol/L (136-145)
[2023-07-27 07:12] LABS: Anisocytosis SLIGHT = 6-15 cells HPF (0-5); Band 15 % (5-11); CellaVision Operator ID LAB.KW3; Lymphocytes 20 % (21-51); Monocytes 4 % (0-10); Neutrophil 59 % (42-75); Platelet Adequacy Comment Platelets Normal; Polychromasia SLIGHT = 2-3 cells HPF (0-2); Target Cells SLIGHT = 2-5 cells HPF (0-1); Total Cell Count 101
[2023-07-27] MEDS: Potassium Chloride 20 MEQ TAB PO SCH (08:24)
[2023-07-28 05:04] LABS: #Monocytes 0.5 thou/uL (0.11-0.59); #Neutrophils 1.7 thou/uL (1.40-6.50); %Basophils 0.6 % (0.0-1.0); %Eosinophils 0.8 % (0.0-10.0); %Monocytes 9.5 % (0.0-10.0); %Neutrophils 33.7 % (42.0-75.0); Hemoglobin 9.9 g/dL (12.0-16.0); Mean Corpuscular HGB CONC 34.1 g/dL (32.0-36.0); Mean Corpuscular Hemoglobin 30.8 pg (27.0-31.0); Mean Corpuscular Volume 90.3 fl (78.0-98.0); Mean Platelet Volume 8.4 fL (7.4-10.4); Platelet Count 199 10x3/uL (130-400); RBC Distribution Width 16.2 % (11.5-14.5); Red Blood Cell (RBC) Count 3.21 mill/uL (4.20-5.40); White Blood Cell (WBC) Count 5.1 10x3/uL (4.8-10.8)
[2023-07-28 06:04] LABS: Anion Gap 12 mmol/L (10-20); BUN (Urea Nitrogen) 13 mg/dL (9.8-20.1); Calc. Creatinine Clearance 108 mL/min (70-130); Calcium 7.1 mg/dL (7.8-10.44); Carbon Dioxide 25 mmol/L (22-29); Chloride 106 mmol/L (98-107); Estimated GFR 113; Glucose 119 mg/dL (70-105); Sodium 139 mmol/L (136-145)
[2023-07-28] MEDS: GoLYTELY 4,000 ml Bottle PO SCH (15:45)
[2023-07-29 04:24] LABS: #Eosinphils 0.1 thou/uL (0.0-0.7); #Monocytes 0.5 thou/uL (0.11-0.59); %Basophils 0.4 % (0.0-1.0); %Lymphocytes 46.7 % (21.0-51.0); %Monocytes 7.5 % (0.0-10.0); %Neutrophils 44.1 % (42.0-75.0); Hematocrit 29.3 % (36.0-47.0); Hemoglobin 9.9 g/dL (12.0-16.0); Mean Corpuscular HGB CONC 33.8 g/dL (32.0-36.0); Mean Corpuscular Hemoglobin 30.7 pg (27.0-31.0); Mean Platelet Volume 8.5 fL (7.4-10.4); Platelet Count 189 10x3/uL (130-400); RBC Distribution Width 15.9 % (11.5-14.5); Red Blood Cell (RBC) Count 3.22 mill/uL (4.20-5.40); White Blood Cell (WBC) Count 6.8 10x3/uL (4.8-10.8)
[2023-07-29 05:20] LABS: Anion Gap 13 mmol/L (10-20); BUN (Urea Nitrogen) 18 mg/dL (9.8-20.1); Calc. Creatinine Clearance 98 mL/min (70-130); Calcium 7.2 mg/dL (7.8-10.44); Carbon Dioxide 24 mmol/L (22-29); Chloride 105 mmol/L (98-107); Estimated GFR 110; Glucose 73 mg/dL (70-105); Sodium 138 mmol/L (136-145)
[2023-07-29] MEDS: Morphine 2 MG/ML VIAL SLOW IVP PRN (12:33)
[2023-07-29] MEDS: Dextrose 5 %-0.45 % NaCl 1,000 ML IV SCH (12:34)
[2023-07-30] MEDS ORDERED: Glucagon 1 MG/ML KIT IM PRN (05:15)
[2023-07-30] MEDS ORDERED: Dextrose 50% Abboject 50 ML SYRINGE IVP PRN (05:15)
[2023-07-30] MEDS ORDERED: Dextrose 5% in Water 1,000 ML IV PRN (05:15)
[2023-07-30 06:17] LABS: Calcium 7.1 mg/dL (7.8-10.44); Chloride 106 mmol/L (98-107); Potassium 3.4 mmol/L (3.5-5.1); Sodium 136 mmol/L (136-145)
[2023-07-30 06:25] LABS: BUN (Urea Nitrogen) 18 mg/dL (9.8-20.1); Calc. Creatinine Clearance 81 mL/min (70-130); Carbon Dioxide 24 mmol/L (22-29); Estimated GFR 105; Glucose 226 mg/dL (70-105)
[2023-07-30 06:37] LABS: #Eosinphils 0.1 thou/uL (0.0-0.7); #Monocytes 0.4 thou/uL (0.11-0.59); #Neutrophils 6.1 thou/uL (1.40-6.50); %Basophils 0.4 % (0.0-1.0); %Eosinophils 1.1 % (0.0-10.0); %Lymphocytes 28.1 % (21.0-51.0); %Monocytes 4.4 % (0.0-10.0); %Neutrophils 65.7 % (42.0-75.0); Hematocrit 31.5 % (36.0-47.0); Hemoglobin 10.7 g/dL (12.0-16.0); Mean Corpuscular Hemoglobin 32.1 pg (27.0-31.0); Mean Corpuscular Volume 94.6 fl (78.0-98.0); Mean Platelet Volume 8.5 fL (7.4-10.4); Platelet Count 158 10x3/uL (130-400); RBC Distribution Width 16.1 % (11.5-14.5); Red Blood Cell (RBC) Count 3.33 mill/uL (4.20-5.40); White Blood Cell (WBC) Count 9.4 10x3/uL (4.8-10.8)
[2023-07-30] MEDS: HumaLOG 300 UNITS/3 ML VIAL SC PRN (06:42)
[2023-07-30 07:52] LABS: Anion Gap 9 mmol/L (10-20)
[2023-07-30] MEDS: Sodium Chloride 0.9% 500 ML IV SCH ×2 (09:44→12:09)
[2023-07-30] MEDS: Ondansetron PF 4 MG/2 ML Vial IVP PRN (09:44)
[2023-07-30] MEDS: Potassium Chloride 20 MEQ TAB PO SCH (10:11)
[2023-07-30] MEDS: Potassium Chloride 20 MEQ in Premix 1 BAG IVPB SCH (14:19)
[2023-07-30] MEDS: Sodium Chloride 0.9% 1,000 ML IV SCH (18:00)
[2023-07-31 04:33] LABS: Hematocrit 27.6 % (36.0-47.0); Hemoglobin 9.2 g/dL (12.0-16.0); Manual Diff?? YES; Mean Corpuscular HGB CONC 33.3 g/dL (32.0-36.0); Mean Corpuscular Hemoglobin 31.1 pg (27.0-31.0); Mean Corpuscular Volume 93.2 fl (78.0-98.0); Mean Platelet Volume 9.3 fL (7.4-10.4); Platelet Count 155 10x3/uL (130-400); RBC Distribution Width 16.3 % (11.5-14.5); Red Blood Cell (RBC) Count 2.96 mill/uL (4.20-5.40)
[2023-07-31 04:56] LABS: Delete Auto Diff?? YES
[2023-07-31 04:58] LABS: Anion Gap 10 mmol/L (10-20); BUN (Urea Nitrogen) 19 mg/dL (9.8-20.1); Calc. Creatinine Clearance 76 mL/min (70-130); Carbon Dioxide 22 mmol/L (22-29); Chloride 110 mmol/L (98-107); Estimated GFR 104; Glucose 119 mg/dL (70-105); Potassium 3.6 mmol/L (3.5-5.1); Sodium 138 mmol/L (136-145)
[2023-07-31 05:02] LABS: Calcium 6.9 mg/dL (7.8-10.44); Critical Call Chemistry NUR.DD14@0502
[2023-07-31 05:42] LABS: Anisocytosis MODERATE=16-30 cells HPF (0-5); Band 10 % (5-11); CellaVision Operator ID lab.sh2; Lymphocytes 18 % (21-51); Monocytes 2 % (0-10); Neutrophil 70 % (42-75); Platelet Adequacy Comment Platelets Normal; Polychromasia SLIGHT = 2-3 cells HPF (0-2); Smudge Cells 12.9 %; Total Cell Count 101
[2023-07-31] MEDS: GoLYTELY 4,000 ml Bottle PO SCH (21:21)
[2023-08-01] MEDS ORDERED: PROPOFOL 0 ML ONE (08:13)
[2023-08-01] MEDS ORDERED: PROPOFOL 20 ML ONE (08:43)
[2023-08-01] MEDS ORDERED: fentaNYL 50 mcg/mL 1 mL Vial ONE (08:43)
[2023-08-01] MEDS ORDERED: Promethazine HCl 25 MG/ML VIAL IM PRN (08:52)
[2023-08-01] MEDS ORDERED: Ondansetron HCl/PF 4 MG/2 ML Vial IVP PRN (08:52)
[2023-08-04] MEDS: Ondansetron ODT 4 MG TAB PO PRN (20:35)
[2023-08-06] MEDS: Fleet Saline Enema 133 ML BOT PR SCH (06:52)
[2023-08-06] MEDS ORDERED: Lidocaine 1% PF 5 ML VIAL ONE (08:28)
[2023-08-06] MEDS ORDERED: PROPOFOL 20 ML ONE (08:28)
[2023-08-06] MEDS ORDERED: Phenylephrine 10 MG/ML VIAL ONE (08:54)
[2023-08-06] MEDS: Sodium Chloride 0.9% 500 ML IVPB SCH (12:12)
[2023-08-10 07:12] LABS: Hematocrit 20.5 % (36.0-47.0); Hemoglobin 6.7 g/dL (12.0-16.0); Manual Diff?? YES; Mean Corpuscular HGB CONC 32.7 g/dL (32.0-36.0); Mean Corpuscular Hemoglobin 31.3 pg (27.0-31.0); Mean Corpuscular Volume 95.8 fl (78.0-98.0); Mean Platelet Volume 11.9 fL (7.4-10.4); RBC Distribution Width 16.3 % (11.5-14.5); Red Blood Cell (RBC) Count 2.14 mill/uL (4.20-5.40); White Blood Cell (WBC) Count 8.1 10x3/uL (4.8-10.8)
[2023-08-10 07:14] LABS: Delete Auto Diff?? YES; Platelet Count 51 10x3/uL (130-400)
[2023-08-10 07:30] LABS: Anion Gap 11 mmol/L (10-20); BUN (Urea Nitrogen) 29 mg/dL (9.8-20.1); Calc. Creatinine Clearance 47 mL/min (70-130); Calcium 7.1 mg/dL (7.8-10.44); Carbon Dioxide 17 mmol/L (22-29); Chloride 108 mmol/L (98-107); Estimated GFR 60; Glucose 197 mg/dL (70-105); Potassium 2.7 mmol/L (3.5-5.1); Sodium 133 mmol/L (136-145)
[2023-08-10 07:38] LABS: Anisocytosis SLIGHT = 6-15 cells HPF (0-5); Band 1 % (5-11); Burr Cells SLIGHT = 2-5 cells HPF (0-1); CellaVision Operator ID LAB.KW3; Lymphocytes 1 % (21-51); Neutrophil 98 % (42-75); Platelet Adequacy Comment Significant decrease; Poikilocytosis SLIGHT = 6-15 cells HPF (0-5); Polychromasia SLIGHT = 2-3 cells HPF (0-2); Schistocytes SLIGHT = 2-5 cells HPF (0-1); Target Cells SLIGHT = 2-5 cells HPF (0-1); Total Cell Count 101
[2023-08-10 09:55] LABS: Hematocrit 19.5 % (36.0-47.0); Hemoglobin 6.5 g/dL (12.0-16.0); Mean Corpuscular HGB CONC 33.3 g/dL (32.0-36.0); Mean Corpuscular Hemoglobin 31.9 pg (27.0-31.0); Mean Corpuscular Volume 95.6 fl (78.0-98.0); Mean Platelet Volume 11.1 fL (7.4-10.4); RBC Distribution Width 16.4 % (11.5-14.5); Red Blood Cell (RBC) Count 2.04 mill/uL (4.20-5.40); White Blood Cell (WBC) Count 8.7 10x3/uL (4.8-10.8)
[2023-08-10 10:00] LABS: Platelet Count 53 10x3/uL (130-400)
[2023-08-10] MEDS: Potassium Chloride 20 MEQ TAB PO SCH (10:10)
[2023-08-10] MEDS: D5 NS w/ 40 mEq KCl 1,000 ML IV SCH (10:13)
[2023-08-10 16:23] VITALS: TEMP 97.6
[2023-08-10] MEDS: Sodium Chloride 0.9% 500 ML IVPB SCH (21:41)
[2023-08-10 22:39] VITALS: BP 91/58
== END 2023-08-11 00:20 | disposition expired | DRG 698 ==
LOC: ERS 17:23 → ERHOLD 07-09 00:10 → IMCU/EMU 07-09 21:20 → T4-B 07-10 11:01
PROVIDERS: ADMIT Internal Medicine; ATTEND Family Medicine
PROC: 3E033XZ Introduction of Vasopressor into Peripheral Vein, Percutaneous Approach (ICD-10-PCS; 2023-07-09)
PROC: 30233J1 Transfusion of Nonautologous Serum Albumin into Peripheral Vein, Percutaneous Approach (ICD-10-PCS; 2023-07-09)
PROC: 30233N1 Transfusion of Nonautologous Red Blood Cells into Peripheral Vein, Percutaneous Approach (ICD-10-PCS; 2023-07-10)
PROC: 0DBP8ZX Excision of Rectum, Via Natural or Artificial Opening Endoscopic, Diagnostic (ICD-10-PCS; principal; 2023-08-01)
PROC: 0DBE8ZX Excision of Large Intestine, Via Natural or Artificial Opening Endoscopic, Diagnostic (ICD-10-PCS; 2023-08-01)
PROC: 0DBK8ZZ Excision of Ascending Colon, Via Natural or Artificial Opening Endoscopic (ICD-10-PCS; 2023-08-01)
PROC: 0DBN8ZZ Excision of Sigmoid Colon, Via Natural or Artificial Opening Endoscopic (ICD-10-PCS; 2023-08-01)
PROC: 0DBP8ZX Excision of Rectum, Via Natural or Artificial Opening Endoscopic, Diagnostic (ICD-10-PCS; 2023-08-06)
DX: T83.511A Infection and inflammatory reaction due to indwelling urethral catheter, initial encounter (principal); E43 Unspecified severe protein-calorie malnutrition; D62 Acute posthemorrhagic anemia; N30.01 Acute cystitis with hematuria; K92.1 Melena; N82.3 Fistula of vagina to large intestine; J98.11 Atelectasis; Z16.12 Extended spectrum beta lactamase (ESBL) resistance; I50.32 Chronic diastolic (congestive) heart failure; R64 Cachexia; R62.7 Adult failure to thrive; Z51.5 Encounter for palliative care; Z66 Do not resuscitate; I11.0 Hypertensive heart disease with heart failure; K62.89 Other specified diseases of anus and rectum; I95.9 Hypotension, unspecified; E88.09 Other disorders of plasma-protein metabolism, not elsewhere classified; E87.6 Hypokalemia; Z86.718 Personal history of other venous thrombosis and embolism; D72.825 Bandemia; Z68.20 Body mass index [BMI] 20.0-20.9, adult; F31.9 Bipolar disorder, unspecified; Z98.890 Other specified postprocedural states; Z88.0 Allergy status to penicillin; Z79.84 Long term (current) use of oral hypoglycemic drugs; Z79.899 Other long term (current) drug therapy; Z79.01 Long term (current) use of anticoagulants; E11.9 Type 2 diabetes mellitus without complications; Z90.710 Acquired absence of both cervix and uterus; F41.9 Anxiety disorder, unspecified; Z82.49 Family history of ischemic heart disease and other diseases of the circulatory system; Z80.1 Family history of malignant neoplasm of trachea, bronchus and lung; Z81.8 Family history of other mental and behavioral disorders; Z91.148 Patient's other noncompliance with medication regimen for other reason; Z86.74 Personal history of sudden cardiac arrest; Z74.01 Bed confinement status; D12.5 Benign neoplasm of sigmoid colon; E83.42 Hypomagnesemia; Z79.4 Long term (current) use of insulin; R33.9 Retention of urine, unspecified; R53.81 Other malaise; D63.8 Anemia in other chronic diseases classified elsewhere; R44.1 Visual hallucinations; B96.20 Unspecified Escherichia coli [E. coli] as the cause of diseases classified elsewhere; H54.40 Blindness, one eye, unspecified eye; K60.3 Anal fistula; K60.2 Anal fissure, unspecified; I07.1 Rheumatic tricuspid insufficiency; Y84.6 Urinary catheterization as the cause of abnormal reaction of the patient, or of later complication, without mention of misadventure at the time of the procedure
CPT/HCPCS: 36415; 36416; 36430; 71045; 71275; 74177; 80048; 80053; 81001; 82274; 82728; 83605; 83735; 83880; 84100; 84145; 84443; 84484; 85025; 85060; 85610; 85730; 86850; 86900; 86901; 87040; 87077; 87086; 87186; 88305; 88342; 93005; 93306; 96360; 97139; C9113; J1815; J1940; J2185; J2272; J2371; J2405; J2704; J3010; J3475; J3480; J3490; J7030; J7042; J7050; P9016; P9047; Q0162; Q9967